=== PATIENT | female | born 1930 | race Caucasian/White ===

== ENCOUNTER 2017-10-12 01:56 | Inpatient (IN) ==
--- NOTE | 2017-10-12 02:30 | Emergency Department Note ---
Disposition Clinical Impression: Fracture of humeral head, right, closed Qualifiers: Encounter type: initial encounter Qualified Code(s): S42.291A - Other displaced fracture of upper end of right humerus, initial encounter for closed fracture Closed right femoral fracture Qualifiers: Encounter type: initial encounter Femur location: base of neck Fracture alignment: displaced Qualified Code(s): S72.041A - Displaced fracture of base of neck of right femur, initial encounter for closed fracture Fall Qualifiers: Encounter type: initial encounter Qualified Code(s): W19.XXXA - Unspecified fall, initial encounter Disposition: Admitted As Inpatient Condition: Undetermined Time of Disposition: 04:38 Fall HPI - General Chief Complaint: ED Fall Stated Complaint: fall Time Seen by Provider: 10/12/17 02:01 Source: patient, EMS Mode of arrival: private vehicle Limitations: no limitations Nursing Notes Reviewed: Yes Vital Signs Reviewed: Yes - History of Present Illness HPI Narrative: 87-year-old female with apparent history of degenerative disc disease who apparently may have taken more of her medication and she supposed to arrives after a fall. The patient states that she took her Vicodin which she does not normally take on a regular basis and the patient's daughter found her and was slightly altered and sleepy. The patient did not realize how sleepy the patient was in instructed the patient to go to the bathroom. Upon in relation to the bathroom she was found a few minutes later on the ground. The patient had no LOC but does not remember the event due to alteration in mentation likely associated with Vicodin use. The patient is complaining of right shoulder and right hip pain she denies any abdominal pain, chest pain, difficulty breathing. The patient is resting comfortably in bed at this time without any other obvious signs of trauma. She denies any other complaints. 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 From: standing Fall Witnessed: no Place Fall Occurred: home Loss of Consciousness: none Prolonged Down Time?: no Symptoms Prior to Fall: none Context: new medication Location of injury - extremities: Right: shoulder, hip Severity: mild Severity scale (1-10): 3 Quality: aching Associated symptoms (after fall): Reports: denies - Related Data Home Medications Medication Instructions Recorded Confirmed Folic Acid 0.4 mg PO DAILY 04/23/17 06/21/17 Gabapentin [Gralise] 300 mg PO BID 04/23/17 06/21/17 Levothyroxine [Synthroid] 50 mcg PO DAILY 04/23/17 06/21/17 Lisinopril [Zestril] 40 mg PO DAILY 04/23/17 06/21/17 Lovastatin 10 mg PO DAILY 04/23/17 06/21/17 Metoprolol [Lopressor] 50 mg PO BID 04/23/17 06/21/17 Oxybutynin Chloride [Ditropan Xl] 5 mg PO DAILY 04/23/17 06/21/17 Pioglitazone [Actos] 45 mg PO 0800 04/23/17 06/21/17 amLODIPine [Norvasc] 10 mg PO DAILY 04/23/17 06/21/17 hydrALAZINE [HydrALAZINE] 10 mg PO TID 04/23/17 06/21/17 Previous Rx's Medication Instructions Recorded HYDROcodone/Acet 7.5/325 mg [[place] 1 tab PO Q6H PRN #90 tablet 12/25/16 7.5-325 mg] Ranitidine HCl [Zantac] 150 mg PO BID #60 tablet 01/22/17 Docusate Sodium [Colace] 100 mg PO BID #60 capsule 05/20/17 Allergies Allergy/AdvReac Type Severity Reaction Status Date / Time No Known Allergies Allergy Verified 08/14/17 13:52 All systems ED: reviewed and negative except as stated. Constitutional: Denies: fever, chills, weakness Cardiovascular: Denies: chest pain Respiratory: Denies: dyspnea Gastrointestinal: Denies: abdominal pain Genitourinary: Denies: urgency, dysuria Musculoskeletal: Reports: arthralgia. Denies: back pain, neck pain, myalgia Integumentary: Denies: rash Neurological: Denies: headache, weakness, numbness, paresthesias, confusion Fall PMH - Past Medical History Medical history: Reports: arthritis, cancer, diabetes, GERD, hypertension, kidney stones, other Surgical history: Reports: cholecystectomy, orthopedic, other Psychiatric history: Reports: no psych history, schizophrenia - Social History Smoking Status: Never smoker Alcohol use: Reports: unknown Drug use: Reports: none Physical Exam - General Limitations: no limitations General appearance: alert, in no apparent distress - Head Head exam: atraumatic, normocephalic, normal inspection - Eye Eye exam: Present: normal appearance, PERRL, EOMI - ENT ENT exam: normal exam, normal oropharynx, mucous membranes moist - Neck Neck exam: Present: normal inspection, full ROM, trachea midline - Chest Chest inspection: Present: normal inspection, symmetric chest wall rise - Respiratory Respiratory exam: Present: normal lung sounds bilaterally - Cardiovascular Cardiovascular exam: Present: regular rate, normal rhythm, normal heart sounds - Abdominal Exam Abdominal exam: Present: soft, Non-Tender. Absent: tenderness, distention, guarding, rebound, rigidity - Extremities Exam Extremities exam: Present: full ROM, tenderness (RIght shoulder and right hip.) - Neurological Exam Neurological exam: Present: alert - Expanded Neurological Exam Patient oriented to: Present: person, place Speech: Present: fluid speech Cranial nerves: EOM function (II, III, IV, ): Normal, facial sensation (V): Normal, facial palsy (VII): Normal Cerebellar function: normal gait Motor strength - LUE: 4/5 Motor strength - RUE: 4/5 Motor strength - LLE: 4/5 Motor strength - RLE: 4/5 Sensory exam upper extremity: light touch: Normal Sensory exam lower extremity: light touch: Normal Coma Scale Eye Opening: Spontaneous Coma Scale Motor Response: Obeys Commands Coma Scale Verbal Response: Oriented Coma Scale Total: 15 Course Vital Signs Temperature 97.5 F L 10/12/17 01:57 Pulse Rate 73 10/12/17 01:57 Respiratory Rate 16 10/12/17 01:57 Blood Pressure 165/66 10/12/17 01:57 O2 Sat by Pulse Oximetry 99 10/12/17 01:57 Temperature 97.5 F L 10/12/17 01:57 Pulse Rate 73 10/12/17 01:57 Respiratory Rate 16 10/12/17 01:57 Blood Pressure 165/66 10/12/17 01:57 O2 Sat by Pulse Oximetry 99 10/12/17 01:57 Oxygen Delivery Oxygen Delivery Room Air Fall - MDM Narrative Medical decision making narrative: Here in the emergency department demonstrates a right humeral head fracture as well as a right subcapital femoral neck fracture. The patient had consulted Dr. Feliz. He will be consulted the patient and see the patient once admitted to the hospitalist service. The patient was accepted by Dr. Cortes for admission. - Lab Data Lab results reviewed: Yes I reviewed the patient's lab results. Result diagrams: 10/12/17 03:41 10/12/17 03:41 Lab Results 10/12/17 10/12/17 Range/Units 03:41 03:41 WBC 13.2 H (4.3-11.1) K/mcL RBC 3.01 L (3.82-4.97) M/mcL Hgb 9.8 L (11.5-15.4) g/dL Hct 31.2 L (35.3-44.9) % MCV 103.7 H (83.0-100.0) fL MCH 32.6 (28.0-33.3) pg MCHC 31.4 L (31.6-35.5) g/dL RDW 14.7 H (11.5-14.5) % Plt Count 192 (140-400) K/mcL MPV 10.7 (9.4-12.4) fL Immature Gran % 0.5 (0-4) % Seg Neutrophils % 77.6 % Lymphocytes % 13.9 % Monocytes % 7.5 % Eosinophils % 0.2 % Basophils % 0.3 % Neutrophils # 10.2 H (1.6-8.9) K/mcL Lymphocytes # 1.8 (0.6-4.6) K/mcL Monocytes # 1.0 (0.0-1.3) K/mcL Eosinophils # 0.0 (0.0-0.6) K/mcL Basophils # 0.0 (0.0-0.2) K/mcL Sodium 136 (136-145) mEq/L Potassium 5.2 H (3.5-4.5) mEq/L Chloride 103 (98-109) mEq/L Carbon Dioxide 24 (19-29) mEq/L BUN 36 H (7-20) mg/dL Creatinine 2.26 H (0.57-1.11) mg/dL Est GFR ( Amer) 25 L (> 60) Est GFR (Non-Af Amer) 21 L (> 60) BUN/Creatinine Ratio 16 (6-26) Glucose 128 H (70-99) mg/dL Calculated Osmolality 292 (280-300) Calcium 8.6 (8.6-10.8) mg/dL - Radiology Data Radiology results reviewed: Yes I reviewed the patient's radiology results. Attestation Statement - Attestation Attestation: I examined this patient and my medical decision-making was reviewed with the Resident Physician. I agree with the documented findings, disposition and treatment plan as described except to the extent set forth below. Patient to ED after a fall at home. Daughter states she got up to go to the bathroom when she found her half playing on her bed. States she heard a fall. Patient opening a right shoulder and hip pain. On examination she is holding her arm internally rotated. Does not allow log rolling of the hip. Tenderness over the greater trochanter. Abdomen soft lungs clear. Plan. Patient with a humeral neck fracture and left subcapital hip fracture. Discussed with orthopedics . Admitted to medicine.
[2017-10-12 03:46] LABS: Basophils % 0.3 %; Eosinophils % 0.2 %; Hematocrit 31.2 % (35.3-44.9); Hemoglobin 9.8 g/dL (11.5-15.4); Immature Granulocytes % 0.5 % (0-4); Lymphocytes # 1.8 K/mcL (0.6-4.6); Lymphocytes % 13.9 %; Mean Corpuscular HGB Conc 31.4 g/dL (31.6-35.5); Mean Corpuscular Hemoglobin 32.6 pg (28.0-33.3); Mean Corpuscular Volume 103.7 fL (83.0-100.0); Mean Platelet Volume 10.7 fL (9.4-12.4); Monocytes % 7.5 %; Neutrophils # 10.2 K/mcL (1.6-8.9); Platelet Count 192 K/mcL (140-400); Red Blood Count 3.01 M/mcL (3.82-4.97); Red Cell Distribution Width 14.7 % (11.5-14.5); Segmented Neutrophils % 77.6 %
[2017-10-12 04:00] LABS: Calcium 8.6 mg/dL (8.6-10.8)
[2017-10-12 04:01] LABS: Potassium 5.2 mEq/L (3.5-4.5)
[2017-10-12] MEDS ORDERED: Naloxone 0.4 MG/ML INJ IVP PRN ×2 (09:14→19:37)
[2017-10-12] MEDS ORDERED: *HR* Morphine 2 MG/ML SYRINGE IVP PRN (09:14)
[2017-10-12] MEDS ORDERED: Ondansetron 4 MG/2 ML VIAL IVP PRN ×2 (09:14→19:37)
[2017-10-12] MEDS ORDERED: *HR* HYDROcodone/Acet 5/325 mg TABLET PO PRN (09:14)
[2017-10-12] MEDS ORDERED: Acetaminophen 325 MG TABLET PO PRN ×2 (09:14→19:37)
[2017-10-12] MEDS ORDERED: D5% in Water 1,000 ML IVC PRN ×3 (09:20→23:53)
[2017-10-12] MEDS ORDERED: Dextrose Gel 15 GM PO PRN ×6 (09:20→23:53)
[2017-10-12] MEDS ORDERED: *HR* Dextrose 50 % in Water (Syg) 50 ML SYRINGE IVP PRN ×3 (09:20→23:53)
--- NOTE | 2017-10-12 09:30 | Internal Med History&Physical ---
Date of Encounter: 10/12/17 Time of Encounter: 09:28 Assessment and Plan (1) Fall Current visit: Yes Status: Acute Likely secondary to use of narcotics. Continue supportive care and fall precautions. Check urine reflex microscopy and culture as daughter is concerned about UTI as patient is noted to be more confused at home. Qualifiers: Encounter type: initial encounter Qualified Code(s): W19.XXXA - Unspecified fall, initial encounter (2) Closed right femoral fracture Current visit: Yes Status: Acute Secondary to fall. Right hip x-ray shows subcapital hip fracture. Orthopedic surgery has been consulted, plan for hip surgery. Continue bedrest, IV hydration, and control with cautious use of when necessary IV morphine and oral Percocet. Keep nothing by mouth for now. Check EKG. Patient has intermediate perioperative risk for cardiopulmonary complications, for intermediate risk orthopedic surgery, at this time; Physical and occupational therapy evaluation after surgery. Qualifiers: Encounter type: initial encounter Femur location: base of neck Fracture alignment: displaced Qualified Code(s): S72.041A - Displaced fracture of base of neck of right femur, initial encounter for closed fracture (3) Fx humeral neck Current visit: Yes Status: Acute Right humerus x-ray shows displaced humeral neck fracture. Continue supportive care, right arm sling. Follow-up orthopedics consult. Pain control as above. Qualifiers: Encounter type: initial encounter Fracture type: closed Laterality: right Qualified Code(s): S42.211A - Unspecified displaced fracture of surgical neck of right humerus, initial encounter for closed fracture (4) Essential hypertension Current visit: Yes Status: Chronic Blood pressure noted to be well controlled. Resume home medications. (5) Hypothyroidism Current visit: Yes Status: Chronic Continue levothyroxine. Qualifiers: Hypothyroidism type: unspecified Qualified Code(s): E03.9 - Hypothyroidism , unspecified (6) Multiple myeloma Current visit: Yes Status: Chronic Follows with oncology as outpatient. Has a variant of multiple myeloma, currently not on chemotherapy. 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 Serum creatinine noted to be around baseline, 2.2 today. Continue to monitor closely and avoid nephrotoxic agents. (8) Anemia Current visit: Yes Status: Chronic Noted to have chronic anemia, likely related to myeloproliferative disorder. Monitor hemoglobin closely. Qualifiers: Anemia type: unspecified type Qualified Code(s): D64.9 - Anemia, unspecified (9) Type 2 diabetes mellitus Current visit: Yes Status: Chronic Accu-Chek blood glucose monitoring with sliding scale insulin. Blood sugars noted to be well controlled. Diabetic diet when tolerated. 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 Beaulieu is a 87 year old female with history of hypertension, diabetes, chronic kidney disease presents with complaints of right shoulder and right hip pain after sustaining fall at home. Patient is noted to be on narcotic pain medications at home, which she does not often take due to resulting confusion and drowsiness. She took Percocet last night after which her daughter noticed her on the bathroom floor. Patient reports no chest pain, palpitations, dyspnea or syncope. She did not hit her head, however reports severe pain in her right arm and right hip and cannot move her right shoulder and hip without pain. She has no previous history of fractures. Patient is also noted to be mildly confused at this time and history is obtained from her daughter at bedside. Past Med Surg Social Fam HX - Past Medical History Medical history: arthritis, cancer (Multiple myeloma, not on treatment), diabetes, GERD, hypertension, kidney stones, renal disease, other Psychiatric history: no psych history, schizophrenia - Past Surgical History Surgical History: cholecystectomy, orthopedic, other (Right great toe amputation ), other (Lumbar spinal fusion surgery) - Social History Smoking Status: Never smoker Smokeless Tobacco Status: No Alcohol use: unknown Drug use: none Occupational status: retired Current living situation: Home, With Family Activity Level: Uses cane/walker Recent Out of Country Travel Within the Last 8 Weeks: No Exposure or Possible Exposure to Illness During Travel: No - Family History Brother Name: ivy loomis Living Status: Still Living Hx Family Cancer: Yes (colon) Internal Medicine - H&P: Meds Ranitidine HCl [Zantac] 150 mg PO BID #60 tablet 01/22/17 [Rx] Folic Acid 0.4 mg PO DAILY 04/23/17 [History] Lisinopril [Zestril] 40 mg PO DAILY 04/23/17 [History] Lovastatin 10 mg PO DAILY 04/23/17 [History] Metoprolol [Lopressor] 50 mg PO BID 04/23/17 [History] Pioglitazone [Actos] 45 mg PO 0800 04/23/17 [History] Amlodipine Besylate 10 mg PO DAILY 10/13/17 [History] Ascorbate Calcium [Vitamin C] 500 mg PO DAILY 10/13/17 [History] Aspirin [Lo-Dose Aspirin EC] 81 mg PO DAILY 10/13/17 [History] Ca/D3/Mag#11/Zinc/Identification And Records Commander/Bill/Bor [Caltrate 600+D Plus Tablet] 1 tab PO DAILY 10/13 [History] Gabapentin [Neurontin] 600 mg PO BID 10/13/17 [History] HYDROcodone/Acet 7.5/325 mg [[place] 7.5-325 mg] 1 tab PO Q8H PRN 10/13/17 [ History] Insulin Glargine,Hum.rec.anlog [Basaglar Kwikpen U-100] 12 unit SQ DAILY [History] Levothyroxine [Synthroid] 75 mcg PO 0630 10/13/17 [History] Multivitamin [Multivitamins] 1 cap PO DAILY 10/13/17 [History] Omeprazole [PriLOSEC] 40 mg PO DAILY 10/13/17 [History] Oxybutynin [Ditropan] 5 mg PO DAILY 10/13/17 [History] hydrALAZINE [HydrALAZINE] 10 mg PO TID 10/13/17 [History] 3 Allergy/AdvReac Type Severity Reaction Status Date / Time No Known Allergies Allergy Verified 10/13/17 16:04 All Systems PM: A 10-system review of systems was performed and is negative for pertinent findings except as documented above in the HPI. - Constitutional Constitutional: no chills, no fever(s), no night sweats - EENT Eyes: no change in vision, no discharge, no pain, no photophobia Ears: no ear discharge, no ear pain, no tinnitus Nose, mouth and throat: no dysphagia, no nasal discharge, no neck pain, no sore throat - Cardiovascular Cardiovascular ROS IM: no chest pain, no diaphoresis, no dyspnea, no lightheadedness, no palpitations, no syncope - Respiratory Respiratory: no cough, no dyspnea, no wheezing, no excessive phlegm production - Gastrointestinal Gastrointestinal: no abdominal pain, no diarrhea, no hematemesis, no hematochezia, no melena, no nausea, no vomiting - Genitourinary Genitourinary: no change in urinary stream, no dysuria, no flank pain, no hematuria - Musculoskeletal Musculoskeletal ROS IM: limited range of motion - Integumentary Integumentary IM: no rash, no unusual bruising - Neurological Neurological ROS: no confusion, no convulsions, no focal weakness, no numbness, no tingling, no tremor(s) - Hematologic/Lymphatic Hematologic/Lymphatic: no easy bruising - Constitutional Vitals: Temp Pulse Resp BP Pulse Ox 98.5 F 72 15 131/71 94 10/12/17 06:28 10/12/17 06:28 10/12/17 06:28 10/12/17 06:28 10/12/17 06:28 General appearance: Present: A&O X 2, mild distress (Intermittent confusion), answers questions appropriately - Respiratory Respiratory exam: Present: CTAB. Absent: accessory muscle use, rales, rhonchi, wheezes - Cardiovascular Cardiovascular exam: Present: RRR, +S1, +S2. Absent: diastolic murmur, gallop, rubs, systolic murmur - GI/Abdominal GI/Abdominal exam: Present: normal bowel sounds, soft, no peritoneal signs. Absent: distended, tenderness - Extremities Exam Extremities exam: Present: full ROM (Restricted and right shoulder and elbow, right hip), warm, radial pulses palpable and symmetrical. Absent: calf tenderness, cyanotic, pedal edema Additional comments: Right lower extremity noted to be shortened, external rotation - Neurological Exam Neurological exam: Present: CN II-XII intact, oriented X3 (Intermittently confused), no focal deficits. Absent: pronater drift, facial droop, speech deficit - Skin Skin exam: Present: dry, intact Internal Med - H&P Results - Labs CBC & Chem 7: 10/13/17 04:50 10/13/17 04:50
[2017-10-12] MEDS: 0.9 % Sodium Chloride 1,000 ML IVC SCH ×3 (10:09→21:20)
[2017-10-12 10:33] LABS: Hemoglobin A1C 5.5 %
[2017-10-12] MEDS ORDERED: Insulin LISPRO 300 UNITS/3 ML VIAL SQ SCH (12:00)
[2017-10-12 12:27] LABS: Bilirubin,Urine Negative (Negative); Blood,Urine Trace (Negative); Clarity,Urine Turbid (Clear); Color,Urine Yellow (Yellow); Glucose,Urine (UA) Normal (Normal); Ketones,Urine Trace mg/dL (Negative); Leukocyte Esterase,Urine Large (Negative); Nitrite,Urine Negative (Negative); Protein,Urine 30 mg/dL (Neg-Trace); Specific Gravity,Urine 1.015 (1.010-1.025); Urobilinogen,Urine Normal (Normal)
[2017-10-12 12:30] LABS: Bacteria,Urine Many per hpf (None-Few); Hyaline Casts,Urine None Seen per lpf (None-Few); Squamous Epithelial Cell,Urine Many per lpf (None-Few); WBC,Urine TNTC per hpf (0-3)
--- NOTE | 2017-10-12 14:19 | Orthopedic Consult Note ---
Date of Encounter: 10/12/17 Time of Encounter: 14:18 History of Present Illness Chief complaint: Right hip and right shoulder pain HPI: Ms. Beaulieu is a 87 year old [id number] female who sustained a fall in her home the night before. She apparently had gotten up to use the bathroom and was somewhat still sleepy and possibly had taken some additional pain medications with resultant sleepiness. She was barely found in the bathroom unable to ambulate. She was brought to [facility] x-rays taken revealed evidence of a right femoral neck and a right humeral neck fracture. She is admitted for further evaluation and management. For complete history and physical data please refer to the formal medical chart. Examination reveals tenderness and edema about the right shoulder. Right lower extremity is held in a minimally shortened position. Neurosensory exam is grossly intact. X-rays of the right hip reveals a displaced right femoral neck fracture. X-rays of the right shoulder reveals a displaced/offset fracture of the humeral neck. There is a bone to bone contact between the fragments. Impression #1 displaced right femoral neck fracture #2 displaced right humeral neck fracture Recommendations: Long discussion with the patient and her daughter about the treatment options available both the hip and the proximal humerus. Decision was made to go ahead and treat the femoral neck fracture by placing a cemented hip prosthesis. This would allow for immediate full weightbearing ambulation. We discussed potential risks and complications of the surgery including but not limited to bleeding, infection, blood clots, nerve injury, stiffness, rotational and leg length deformities as well as possible dislocation. Discussed treating the humeral fracture more conservatively at this time with the understanding that if it is problematic that surgery can be performed at a later date. Informed consent has been signed proceed with the surgical procedure on her right hip. Proceed today when the implants and OR time is available. Thank you very much for allowing me seen care for Mrs. Jimenez. Sincerely, Parish Feliz,DO Past Med Surg Social Fam HX - Past Medical History Medical history: arthritis, cancer, diabetes, GERD, hypertension, kidney stones , other Psychiatric history: no psych history, schizophrenia - Past Surgical History Surgical History: cholecystectomy, orthopedic, other - Social History Smoking Status: Never smoker Smokeless Tobacco Status: No Alcohol use: unknown Drug use: none - Family History Brother Name: ivy loomis Living Status: Still Living Hx Family Cancer: Yes (colon) Medications and Allergies HYDROcodone/Acet 7.5/325 mg [[place] 7.5-325 mg] 1 tab PO Q6H PRN #90 tablet 12/25 [Rx] Ranitidine HCl [Zantac] 150 mg PO BID #60 tablet 01/22/17 [Rx] Folic Acid 0.4 mg PO DAILY 04/23/17 [History] Gabapentin [Gralise] 300 mg PO BID 04/23/17 [History] Levothyroxine [Synthroid] 50 mcg PO DAILY 04/23/17 [History] Lisinopril [Zestril] 40 mg PO DAILY 04/23/17 [History] Lovastatin 10 mg PO DAILY 04/23/17 [History] Metoprolol [Lopressor] 50 mg PO BID 04/23/17 [History] Oxybutynin Chloride [Ditropan Xl] 5 mg PO DAILY 04/23/17 [History] Pioglitazone [Actos] 45 mg PO 0800 04/23/17 [History] amLODIPine [Norvasc] 10 mg PO DAILY 04/23/17 [History] hydrALAZINE [HydrALAZINE] 10 mg PO TID 04/23/17 [History] Docusate Sodium [Colace] 100 mg PO BID #60 capsule 05/20/17 [Rx] 3 Allergy/AdvReac Type Severity Reaction Status Date / Time No Known Allergies Allergy Verified 08/14/17 13:52 All Systems Reviewed: A 10-system review of systems was performed and is negative for pertinent findings except as documented above in the HPI. Physical Exam - Constitutional Vitals: Temp Pulse Resp BP Pulse Ox 99.9 F H 80 16 132/62 92 10/12/17 10:56 10/12/17 10:56 10/12/17 10:56 10/12/17 10:56 10/12/17 10:56 Results - Labs Result Diagrams: 10/12/17 03:41 10/12/17 03:41 Labs: Abnormal lab results WBC 13.2 K/mcL (4.3-11.1) H 10/12/17 03:41 RBC 3.01 M/mcL (3.82-4.97) L 10/12/17 03:41 Hgb 9.8 g/dL (11.5-15.4) L 10/12/17 03:41 Hct 31.2 % (35.3-44.9) L 10/12/17 03:41 MCV 103.7 fL (83.0-100.0) H 10/12/17 03:41 MCHC 31.4 g/dL (31.6-35.5) L 10/12/17 03:41 RDW 14.7 % (11.5-14.5) H 10/12/17 03:41 Neutrophils # 10.2 K/mcL (1.6-8.9) H 10/12/17 03:41 Potassium 5.2 mEq/L (3.5-4.5) H 10/12/17 03:41 BUN 36 mg/dL (7-20) H 10/12/17 03:41 Creatinine 2.26 mg/dL (0.57-1.11) H 10/12/17 03:41 Est GFR ( Amer) 25 (> 60) L 10/12/17 03:41 Est GFR (Non-Af Amer) 21 (> 60) L 10/12/17 03:41 Glucose 128 mg/dL (70-99) H 10/12/17 03:41 Urine Clarity Turbid (Clear) A 10/12/17 12:13 Urine Protein 30 mg/dL (Neg-Trace) H 10/12/17 12:13 Urine Ketones Trace mg/dL (Negative) H 10/12/17 12:13 Urine Blood Trace (Negative) H 10/12/17 12:13 Ur Leukocyte Esterase Large (Negative) H 10/12/17 12:13 Urine Microscopic RBC 5-15 per hpf (0-3) H 10/12/17 12:13 Urine Microscopic WBC TNTC per hpf (0-3) H 10/12/17 12:13 Ur Squamous Epith Cells Many per lpf (None-Few) H 10/12/17 12:13 Urine Bacteria Many per hpf (None-Few) H 10/12/17 12:13 All other labs normal. - Diagnostic results Shoulder x-ray: image reviewed Hip AP/Lateral x-ray: image reviewed Consult Discharge Plan - Plan Referrals: Margie Champion, DO [Primary Care Provider] -
[2017-10-12] MEDS ORDERED: hydrALAZINE 10 MG TABLET PO SCH (15:00)
[2017-10-12] MEDS ORDERED: Lidocaine -MPF 2% 2 ML VIAL ONE (15:01)
[2017-10-12] MEDS ORDERED: *HR* Propofol 200 MG/20 ML VIAL IVP ONE (15:01)
[2017-10-12] MEDS ORDERED: Dexamethasone 4 MG/ML VIAL ONE ×2 (15:01→16:59)
[2017-10-12] MEDS ORDERED: *HR* Phenylephrine 10 MG/ML VIAL ONE (15:02)
[2017-10-12] MEDS ORDERED: *HR* FentaNYL (PF) 100 MCG/2 ML VIAL ONE (15:13)
--- NOTE | 2017-10-12 15:28 | Anesthesia Evaluation PreOp ---
Date of Encounter: 10/12/17 Time of Encounter: 16:00 - Past History Planned Operation: Right whit-hip Cardiac History: HTN Pulmonary History: Denies Any Significant HX BELT TENDER History: Denies Any Significant HX Other Medical History: Renal (ckd with creatinine 2.26 this admission and potassium 5.2 without reported hemolysis, renal stones), Diabetes Type II, Thyroid (hypothryoidism), GERD, Other (multiple myeloma, poss uti, also with broken) Anesthesia History: No Prior Anesthetic Complications, Past Anesthesia ( cholecystectomy, orthopaedic) Alcohol Use: unknown Drug use: none Medications and Allergies HYDROcodone/Acet 7.5/325 mg [Roseboom 7.5-325 mg] 1 tab PO Q6H PRN #90 tablet 12/25 [Rx] Ranitidine HCl [Zantac] 150 mg PO BID #60 tablet 01/22/17 [Rx] Folic Acid 0.4 mg PO DAILY 04/23/17 [History] Gabapentin [Gralise] 300 mg PO BID 04/23/17 [History] Levothyroxine [Synthroid] 50 mcg PO DAILY 04/23/17 [History] Lisinopril [Zestril] 40 mg PO DAILY 04/23/17 [History] Lovastatin 10 mg PO DAILY 04/23/17 [History] Metoprolol [Lopressor] 50 mg PO BID 04/23/17 [History] Oxybutynin Chloride [Ditropan Xl] 5 mg PO DAILY 04/23/17 [History] Pioglitazone [Actos] 45 mg PO 0800 04/23/17 [History] amLODIPine [Norvasc] 10 mg PO DAILY 04/23/17 [History] hydrALAZINE [HydrALAZINE] 10 mg PO TID 04/23/17 [History] Docusate Sodium [Colace] 100 mg PO BID #60 capsule 05/20/17 [Rx] 3 Allergy/AdvReac Type Severity Reaction Status Date / Time No Known Allergies Allergy Verified 08/14/17 13:52 - Meds/Allergy Pre-op Review Medications Reviewed: Yes Allergies Reviewed: Yes Beta Blockers on Current Med List: Yes If Beta Blockers taken, Date/Time (Last Dose taken): 10-11-17 metoprolol 16:00 Anesthesia Results - Labs 10/12/17 03:41 10/12/17 03:41 - Imaging EKG: report reviewed, image reviewed (SR) Additional studies: Holter: Impression: 1. Baseline rhythm normal sinus. 2. Occasional PVCs. 3. Occasional PACS. 4. Several short runs PAT. 5. No symptoms noted. TTE: Rhythm strip demonstrates probably 2nd degree AVB Mobitz type I (Wenckebach) LVEF 65% mild MR mild pulm htn Anesthesia Exam Last Vital Signs Temp 99.9 F H 10/12/17 10:56 Pulse 80 10/12/17 10:56 Resp 16 10/12/17 10:56 BP 132/62 10/12/17 10:56 Pulse Ox 92 10/12/17 10:56 Weight: 60 kg - HEENT Pupil (Motor): Pupils equal, EOMI Mallampati: IV Teeth: Poor dentition Oral Opening: Greater than 3 - BELT TENDER LOC: Oriented - Cardiac Rhythm: Regular Murmur: Systolic (low grade CHANCE) - Pulmonary Breath Sounds: bilateral Clear Respiratory Effort: Symmetrical Anesthesia Assess/Plan ASA Score: 3 Modified Tegan Scale for Level of Consciousness: Cooperative, oriented, and tranquil Anesthetic Plan: General Monitoring Plan: Standard Monitors Recovery Plan: PACU
[2017-10-12] MEDS ORDERED: *HR* HYDROmorphone (PF) 1 MG/ML SYRINGE IVP PRN (16:29)
[2017-10-12] MEDS ORDERED: Ondansetron 4 MG/2 ML VIAL ONE ×2 (16:59→18:42)
[2017-10-12] MEDS ORDERED: cefTRIAXone 1,000 MG in Water for inj. (sterile) 10 ML IVP SCH (17:00)
[2017-10-12] MEDS ORDERED: *HR* HYDROmorphone 2 MG/ML SYRINGE ONE (17:24)
[2017-10-12] MEDS ORDERED: ceFAZolin 2,000 MG in Water for inj. (sterile) 20 ML IVP ONE (17:31)
--- NOTE | 2017-10-12 19:31 | Anesthesia Evaluation Post Op ---
Date of Encounter: 10/12/17 Time of Encounter: 19:30 - Vital Signs Vital Signs: Last Vital Signs Temp 98.5 F 10/12/17 19:00 Pulse 74 10/12/17 19:20 Resp 8 10/12/17 19:20 BP 135/51 10/12/17 19:20 Pulse Ox 95 10/12/17 19:20 - Lungs Lungs: Clear Ascult./Percussion - Airway Airway: Non-obstructed - Cardiovascular Regular Rate - Mental Status Mental Status: Alert & Oriented, Answers Appropriately - Pain Pain Scale: 2 - Nausea Vomiting Nausea Vomiting: Not Present - Hydration Hydration: NPO, Nichols catheter - Discharge PostOp Status: Transfer Patient to floor
--- NOTE | 2017-10-12 19:32 | Operative Note ---
Date of procedure: 10/12/17 Pre-op diagnosis: Right femoral neck fracture Post-op diagnosis: same Procedure: hemiarthroplsty right hip Implants: cemented Daniel size 13 LDFX stem , 10 mm distal centralizer, +4 mm adapter and a 47 mm unipolar endoprosthesis Complications: none Surgeon: Parish Feliz Estimated blood loss (cc): 200 Specimen: right femoral headd Condition: stable Disposition: PACU Procedure in Detail: grross findings revealed a displaced right femoral neck fracture in this 87- year-old woman. Intraoperative findings revealed a marked amountof edema in the soft tissues and within the bursa. a somewhat comminuted neck fracture was nooted. Bone quality was good. A cementedhemiarthroplasty was performed without compliccating features with a stable hip obtaiined after placementof the implants. procedure : patient was taken the opperating room and administered a general anesthesi. Patient was not transferred to the operating table and placed in laterally, position with right side up. Patien was stabilized witth a lateral hip sstabilizig system. All pressure points wre well padded. Right hip was now prepped and draped in nomal standard fashion for surgery. a right lateral hip incision was created and dissection was carried through thee adipose tissue down to the fascia which is cleeared split length the incision followed by placeement of the Charnley retracttor. abductor mechanism was then taken down anteriorly off the troochanter and tagged with #2 FiberWire suture protraction later repair. Capsulottomy was then made in thee superior capsulottomy wass madde up to tthe level of the acetabulum. Neck was then osteotomized. Head was removed from the acetabullum and sized. Acetabulum was cleanedd of cllot and debris and thhen ssized formally up to a size 47. Acetabulum wa now packed with dry spongge and attention was returned to thhe femur.T-handled reamer was passsed down the femoral jose followd by opening up the trochanter with the box osteotome. The canal was then sequenntially rasped up to including a size 13. medial calcar was then reamedd. Triialing was performed and appeared probably the fat a 0 to +4 was going be most appropriate.all trial components were now removed.cement restrictor was placd disally. Canal was irriigated with pulsatile lavage and then dried witha obination of suctio and sponges. at this time the cement was mixed. cement was thhen instille distally Cement was pressurized. The assembledstem and centralizer then passed down the cement into the canal and seated onto the medial calcar. Was placed in a neutral position. Excess cement was trimmed away. Cment was allowed to flly harden. Final cement cleanupp was performed. Final trialing was perrformed and a +4 neck length was selected. The +4 neck andhead were then assembled and impacted onto the stem with 3 sharp blows of the mallet. hip was reduced and a stable reduction was obtained. capsulotomy was closed with #2 Fiberwire. Abductorss were repaired with he previously placed #2 FiberWire and reinforced with #2 Quill. fasciawas closed with multile number 2 FiberWire and #2 Quill. deep subtendinous tissue was closed with #1 Vicryl. Medius subtendinous tissue was closed with 2-0 undyed Vicryl. Skin was approximated with 30 Montrell affix. Skin glue was applied. This is followed by Tpifoam. nt was placed into a abduction illow. Patient was no transer from the operating table hospital bedpatient was awakened from anesthesia and transferred to the postanesthesia care unit.
[2017-10-12] MEDS ORDERED: ceFAZolin 2,000 MG in Water for inj. (sterile) 20 ML IVP SCH (20:00)
[2017-10-12] MEDS: CeFAZolin Premix DUPLEX 2,000 MG/50 ML BAG IVPB SCH (20:57)
[2017-10-12] MEDS: hydrALAZINE 10 MG TABLET PO SCH (20:57)
[2017-10-12] MEDS: *HR* HYDROcodone/Acet 5/325 mg TABLET PO PRN (22:38)
[2017-10-12] MEDS: *HR* Morphine 2 MG/ML SYRINGE IVP PRN (23:45)
[2017-10-13] MEDS ORDERED: Insulin LISPRO 300 UNITS/3 ML VIAL SQ SCH
[2017-10-13] MEDS: *HR* HYDROcodone/Acet 5/325 mg TABLET PO PRN ×3 (04:31→19:51)
[2017-10-13] MEDS: *HR* Enoxaparin 30 MG/0.3 ML SYRINGE SQ SCH (04:31)
[2017-10-13] MEDS: CeFAZolin Premix DUPLEX 2,000 MG/50 ML BAG IVPB SCH (04:32)
[2017-10-13 05:11] LABS: Basophils % 0.2 %; Hematocrit 26.3 % (35.3-44.9); Hemoglobin 8.3 g/dL (11.5-15.4); Immature Granulocytes % 0.4 % (0-4); Lymphocytes # 1.5 K/mcL (0.6-4.6); Lymphocytes % 14.5 %; Mean Corpuscular HGB Conc 31.6 g/dL (31.6-35.5); Mean Corpuscular Volume 101.5 fL (83.0-100.0); Mean Platelet Volume 11.2 fL (9.4-12.4); Monocytes # 0.9 K/mcL (0.0-1.3); Monocytes % 8.8 %; Platelet Count 182 K/mcL (140-400); Red Blood Count 2.59 M/mcL (3.82-4.97); Red Cell Distribution Width 14.9 % (11.5-14.5); Segmented Neutrophils % 76.1 %
[2017-10-13 05:27] LABS: Calcium 8.2 mg/dL (8.6-10.8); Magnesium 2.3 mg/dL (1.6-2.6); Potassium 4.8 mEq/L (3.5-4.5)
[2017-10-13] MEDS ORDERED: *HR* Enoxaparin 30 MG/0.3 ML SYRINGE SQ SCH (06:00)
[2017-10-13] MEDS: *HR* Morphine 2 MG/ML SYRINGE IVP PRN ×2 (07:32→23:10)
[2017-10-13] MEDS: Folic Acid 1 MG TABLET PO SCH (08:52)
[2017-10-13] MEDS ORDERED: Folic Acid 1 MG TABLET PO SCH (09:00)
[2017-10-13] MEDS: Insulin LISPRO 300 UNITS/3 ML VIAL SQ SCH ×4 (09:00→21:42)
[2017-10-13] MEDS ORDERED: amLODIPine 5 MG TABLET PO SCH (09:00)
[2017-10-13] MEDS: amLODIPine 5 MG TABLET PO SCH (12:28)
[2017-10-13] MEDS: hydrALAZINE 10 MG TABLET PO SCH ×3 (12:28→21:43)
[2017-10-13] MEDS: 0.9 % Sodium Chloride 1,000 ML IVC SCH (15:47)
--- NOTE | 2017-10-13 15:47 | Orthopedics Progress Note ---
Date of Encounter: 10/13/17 Time of Encounter: 15:43 Subjective Principal diagnosis: Right hip and right proximal humerus fractures Interval history: Patient is postoperative day #1 after having had a hemiarthroplasty for right hip. She is doing quite well. Pain is well managed. Limited activities and ambulation thus far. Vital signs are stable she is afebrile. Dressings on the hip are clean and dry. Neurovascular exam is normal. Hemoglobin is 8.3, currently asymptomatic. Platelet count normal. Urinalysis was consistent with a urinary tract infection though a culture was not performed initially, a culture is currently pending. Impression: POD #1 hemiarthroplasty right hip 2. Right proximal humerus fracture Recommendation: Start more aggressive therapy as patient is able to tolerate. She can be weightbearing as tolerated on the right lower extremity with hip precautions being followed. She may be a candidate to try a right platform walker or a uni-walker depending upon her abilities. Limited use of the right shoulder distal. Recheck labs in a.m. Orthopedic status stable. Objective Vital signs: Vital Signs Temp Pulse Resp BP Pulse Ox 10/13/17 10:45 97.6 F 83 16 117/56 95 10/13/17 08:51 75 114/65 10/13/17 06:49 97.9 F 71 16 115/57 94 10/13/17 04:34 98.8 F 73 15 147/64 96 10/12/17 22:15 97.5 F L 73 12 149/65 96 10/12/17 21:17 95 10/12/17 20:45 97.5 F L 80 12 146/67 95 10/12/17 20:15 97.4 F L 79 12 135/66 94 10/12/17 20:00 97.4 F L 76 11 134/68 93 10/12/17 19:45 97.4 F L 75 12 127/65 95 10/12/17 19:30 98.4 F 72 8 132/57 95 10/12/17 19:20 74 8 135/51 95 10/12/17 19:10 74 8 138/49 96 10/12/17 19:00 98.5 F 71 8 155/61 98 Intake and Output 10/12/17 10/13/17 10/13/17 23:59 07:59 15:59 Intake Total 1080 / 1080 50 / 50 320 / 320 Output Total 250 / 250 350 / 350 Balance 830 / 830 50 / 50 -30 / -30 Intake: IV Fluids 1080 / 1080 50 / 50 0.9 % Sodium Chloride 1,000 ML 1000 / 1000 @ 60 mls/hr IVC .[id number] [facility] Rx #:[id number] Ancef 2,000 MG In Water for inj / 20 . (sterile) 20 ML @ 200 mls/hr IVP ONCE ONE Rx#:[id number] Rocephin 1,000 MG In Water for inj. (sterile) 10 ML @ 300 mls/ hr IVP Q24H [facility] Rx#:[id number] Ancef Premix DUPLEX 2,000 mg In 50 / 50 50 / 50 50 ml @ 100 mls/hr IVPB Q8H [facility] Rx#:[id number] Oral 50 / 50 270 / 270 Output: Urine 350 / 350 Estimated Blood Loss 200 / 200 Urine Amount (Catheter) 50 / 50 Other: Percent of Meal Consumed 40% # Voids 1 Weight 60 kg Blood Glucose* 159 225 106 Patient Weight 10/13/17 23:59 Weight 60 kg - Labs CBC & BMP: 10/13/17 04:50 10/13/17 04:50 Labs: Abnormal lab results RBC 2.59 M/mcL (3.82-4.97) L 10/13/17 04:50 Hgb 8.3 g/dL (11.5-15.4) L D 10/13/17 04:50 Hct 26.3 % (35.3-44.9) L 10/13/17 04:50 MCV 101.5 fL (83.0-100.0) H 10/13/17 04:50 RDW 14.9 % (11.5-14.5) H 10/13/17 04:50 Sodium 133 mEq/L (136-145) L 10/13/17 04:50 Potassium 4.8 mEq/L (3.5-4.5) H 10/13/17 04:50 BUN 45 mg/dL (7-20) H 10/13/17 04:50 Creatinine 2.24 mg/dL (0.57-1.11) H 10/13/17 04:50 Est GFR ( Amer) 25 (> 60) L 10/13/17 04:50 Est GFR (Non-Af Amer) 21 (> 60) L 10/13/17 04:50 Glucose 227 mg/dL (70-99) H 10/13/17 04:50 POC Glucose 225 (58-89) H 10/13/17 06:57 Calcium 8.2 mg/dL (8.6-10.8) L 10/13/17 04:50 Urine Clarity Turbid (Clear) A 10/12/17 12:13 Urine Protein 30 mg/dL (Neg-Trace) H 10/12/17 12:13 Urine Ketones Trace mg/dL (Negative) H 10/12/17 12:13 Urine Blood Trace (Negative) H 10/12/17 12:13 Ur Leukocyte Esterase Large (Negative) H 10/12/17 12:13 Urine Microscopic RBC 5-15 per hpf (0-3) H 10/12/17 12:13 Urine Microscopic WBC TNTC per hpf (0-3) H 10/12/17 12:13 Ur Squamous Epith Cells Many per lpf (None-Few) H 10/12/17 12:13 Urine Bacteria Many per hpf (None-Few) H 10/12/17 12:13 - VTE Documentation of Mechanical Device: Venous foot pump, device Consult Discharge Plan - Plan Referrals: Margie Champion DO [Primary Care Provider] -
[2017-10-13] MEDS: cefTRIAXone 1,000 MG in Water for inj. (sterile) 10 ML IVP SCH (15:57)
[2017-10-13] MEDS ORDERED: 0.9 % Sodium Chloride 1,000 ML IVC SCH (18:45)
--- NOTE | 2017-10-13 19:45 | Electrocardiograph Report ---
[place] [id number] Test Date: 2017-10-12 Pat Name: Bev Beaulieu Department: 114 Room: [facility] Gender: F Scale Installer: : [id number] Requested By: Rebecca Proctor Order Number: [id number] Reading MD: Kev Kulkarni MD Measurements Intervals [place] Rate: 78 P: 7 OR: 145 QRS: -20 QRSD: 86 T: -1 QT: 377 QTc: 411 Interpretive Statements SINUS RHYTHM Poor R wave progression Electronically Signed On 10-13-2017 19:43:56 EST by Kev Kulkarni MD
[2017-10-14] MEDS ORDERED: Melatonin 3 MG TABLET PO ONE (01:08)
[2017-10-14] MEDS: *HR* HYDROcodone/Acet 5/325 mg TABLET PO PRN ×4 (01:39→23:51)
[2017-10-14] MEDS: *HR* Enoxaparin 30 MG/0.3 ML SYRINGE SQ SCH (05:57)
[2017-10-14] MEDS: Folic Acid 1 MG TABLET PO SCH (08:20)
[2017-10-14] MEDS: hydrALAZINE 10 MG TABLET PO SCH ×3 (08:20→20:45)
[2017-10-14] MEDS: amLODIPine 5 MG TABLET PO SCH (08:20)
[2017-10-14] MEDS: Insulin LISPRO 300 UNITS/3 ML VIAL SQ SCH ×4 (08:21→20:55)
[2017-10-14 15:15] LABS: Calcium 8.4 mg/dL (8.6-10.8); Magnesium 1.9 mg/dL (1.6-2.6); Potassium 4.7 mEq/L (3.5-4.5)
[2017-10-14 15:25] LABS: Basophils % 0.1 %; Hematocrit 25.2 % (35.3-44.9); Hemoglobin 8.2 g/dL (11.5-15.4); Immature Granulocytes % 0.5 % (0-4); Lymphocytes # 2.5 K/mcL (0.6-4.6); Lymphocytes % 16.5 %; Mean Corpuscular HGB Conc 32.5 g/dL (31.6-35.5); Mean Corpuscular Hemoglobin 32.5 pg (28.0-33.3); Mean Platelet Volume 11.8 fL (9.4-12.4); Monocytes # 1.9 K/mcL (0.0-1.3); Monocytes % 12.8 %; Neutrophils # 10.4 K/mcL (1.6-8.9); Platelet Count 183 K/mcL (140-400); Red Blood Count 2.52 M/mcL (3.82-4.97); Red Cell Distribution Width 14.8 % (11.5-14.5); Segmented Neutrophils % 70.1 %
--- NOTE | 2017-10-14 17:40 | Internal Med Progress Note ---
Date of Encounter: 10/13/17 Time of Encounter: 15:00 - Assessment and plan (1) Fall Current Visit: Yes Status: Acute Assessment and plan: PT/OT evaluation pending; patient and the daughter are interested in having patient discharged home with home health services, declined placement at a rehabilitation facility. Qualifiers: Encounter type: initial encounter Qualified Code(s): W19.XXXA - Unspecified fall, initial encounter (2) Closed right femoral fracture Current Visit: Yes Status: Acute Assessment and plan: Status post mechanical fall. Orthopedics on board. Status post right hemiarthroplasty, postoperative day 1. Doing well. Monitor hemoglobin. Physical and occupational therapy evaluation pending. Pain control with when necessary oral Percocet. Local wound care and wait pitting per orthopedics. Continue subcutaneous Lovenox. Qualifiers: Encounter type: initial encounter Femur location: base of neck Fracture alignment: displaced Qualified Code(s): S72.041A - Displaced fracture of base of neck of right femur, initial encounter for closed fracture (3) Fx humeral neck Current Visit: Yes Status: Acute Assessment and plan: Status post mechanical fall. Orthopedics on board. Conservative management with splinting at this time. Qualifiers: Encounter type: initial encounter Fracture type: closed Laterality: right Qualified Code(s): S42.211A - Unspecified displaced fracture of surgical neck of right humerus, initial encounter for closed fracture (4) Essential hypertension Current Visit: Yes Status: Chronic Assessment and plan: Blood pressure slightly low this morning, held morning antihypertensives. Continue IV hydration and monitor closely. (5) Hypothyroidism Current Visit: Yes Status: Chronic Assessment and plan: Continue levothyroxine. Qualifiers: Hypothyroidism type: unspecified Qualified Code(s): E03.9 - Hypothyroidism , unspecified (6) Multiple myeloma Current Visit: Yes Status: Chronic Qualifiers: Multiple myeloma remission status: in remission Qualified Code(s): C90.01 - Multiple myeloma in remission (7) CKD (chronic kidney disease), stage III Current Visit: Yes Status: Chronic Assessment and plan: Serum creatinine stable, around baseline. (8) Anemia Current Visit: Yes Status: Chronic Assessment and plan: Monitor hemoglobin for postoperative anemia. Qualifiers: Anemia type: unspecified type Qualified Code(s): D64.9 - Anemia, unspecified (9) Type 2 diabetes mellitus Current Visit: Yes Status: Chronic Assessment and plan: Blood sugars noted to be well controlled. Continue Accu-Chek blood glucose monitoring with sliding scale insulin. Diabetic diet. Qualifiers: Diabetes mellitus complication status: with kidney complications Diabetes mellitus complication detail: with chronic kidney disease Diabetes mellitus buttermaker insulin use: with buttermaker use Chronic kidney disease stage: stage 3 (moderate) Qualified Code(s): E11.22 - Type 2 diabetes mellitus with diabetic chronic kidney disease; N18.3 - Chronic kidney disease, stage 3 ( moderate); N18.3 - Chronic kidney disease, stage 3 (moderate); Z79.4 - buttermaker (current) use of insulin; Z79.4 - buttermaker (current) use of insulin; Z79.4 - retirement (current) use of insulin; Z79.4 - buttermaker (current) use of insulin - Subjective Interval history: Feels better; had right hip surgery yesterday; improving right hip pain; still has right arm pain; tolerates oral diet; no nausea, vomiting; able to get out of bed and ambulate with assistance; - Constitutional Vitals: Temp Pulse Resp BP Pulse Ox 98.8 F 82 16 149/62 94 10/14/17 15:57 10/14/17 15:57 10/14/17 15:57 10/14/17 15:57 10/14/17 15:57 General appearance: Present: A&O X 3, answers questions appropriately - Respiratory Respiratory exam: Present: CTAB. Absent: accessory muscle use, rales, rhonchi, wheezes - Cardiovascular Cardiovascular exam: Present: RRR, +S1, +S2. Absent: diastolic murmur, gallop, rubs, systolic murmur - GI/Abdominal GI/Abdominal exam: Present: normal bowel sounds, soft, no peritoneal signs. Absent: distended, tenderness - Extremities Exam Extremities exam: Present: warm, radial pulses palpable and symmetrical. Absent : calf tenderness, cyanotic, pedal edema Additional comments: right UE in sling; s/p right hip surgery Internal Medicine: Result - Labs CBC & Chem 7: 10/14/17 14:55 10/14/17 14:55 Labs: Short CBC 10/14/17 Range/Units 14:55 WBC 14.8 H (4.3-11.1) K/mcL Hgb 8.2 L (11.5-15.4) g/dL Hct 25.2 L (35.3-44.9) % Plt Count 183 (140-400) K/mcL Neutrophils # 10.4 H (1.6-8.9) K/mcL BMP 10/14/17 14:55 Sodium 131 L Potassium 4.7 H Chloride 104 Carbon Dioxide 18 L BUN 42 H Creatinine 1.73 H Glucose 235 H Calcium 8.4 L - VTE Documentation of Mechanical Device: Venous foot pump, device Consult Discharge Plan - Plan Referrals: Margie Champion DO [Primary Care Provider] -
[2017-10-14] MEDS: cefTRIAXone 1,000 MG in Water for inj. (sterile) 10 ML IVP SCH (17:50)
--- NOTE | 2017-10-14 18:41 | Orthopedics Progress Note ---
Date of Encounter: 10/14/17 Time of Encounter: 18:34 Subjective Principal diagnosis: Right hip and right proximal humerus fractures Interval history: Patient is postoperative day #1 after having had a hemiarthroplasty for right hip. She is doing quite well. Pain is well managed. Limited activities and ambulation thus far. Vital signs are stable she is afebrile. Dressings on the hip are clean and dry. Neurovascular exam is normal. Hemoglobin is 8.3, currently asymptomatic. Platelet count normal. Urinalysis was consistent with a urinary tract infection though a culture was not performed initially, a culture is currently pending. Impression: POD #1 hemiarthroplasty right hip 2. Right proximal humerus fracture Recommendation: Start more aggressive therapy as patient is able to tolerate. She can be weightbearing as tolerated on the right lower extremity with hip precautions being followed. She may be a candidate to try a right platform walker or a uni-walker depending upon her abilities. Limited use of the right shoulder distal. Recheck labs in a.m. Orthopedic status stable. 10/14/2017. Patient is postoperative day #2 hemiarthroplasty right hip. Pain is well managed at this time. Vital signs are stable. She is afebrile. Hip dressings are dry. Shoulder exam is stable. Hemoglobin is 8.2 and stable. Platelet count is normal. Urine culture is growing gram-negative kajal, exact identification and sensitivities pending. Impression: POD #2. Hemiarthroplasty right hip and right proximal humerus fracture Plan: Patient's family have decided against [facility] facility/ rehabilitation. Anticipate going home with home healthcare. Orthopedic status is stable for discharge at any time. Final culture results to determine appropriate antibiotics for urinary tract infection. Objective Vital signs: Vital Signs Temp Pulse Resp BP Pulse Ox 10/14/17 15:57 98.8 F 82 16 149/62 94 10/14/17 11:26 98.3 F 71 18 132/68 98 10/14/17 06:58 98.3 F 75 16 158/66 93 10/14/17 05:05 98.8 F 75 16 150/61 92 10/13/17 23:44 98.2 F 71 16 128/65 93 10/13/17 20:40 98.6 F 77 16 122/49 92 10/13/17 20:00 92 10/13/17 19:49 130/51 Intake and Output 10/14/17 10/14/17 10/14/17 07:59 15:59 23:59 Intake Total 700 / 700 300 / 300 2553 / 2553 Output Total 360 / 360 400 / 400 Balance 340 / 340 -100 / -100 2553 / 2553 Intake: IV Fluids 255 / 2553 0.9 % Sodium Chloride 1,000 ML 543 / 543 @ 60 mls/hr IVC .[id number] [facility] Rx #:[id number] Rocephin 1,000 MG In Water for inj. (sterile) 10 ML @ 300 mls/ hr IVP Q24H [facility] Rx#:[id number] Oral 700 / 700 300 / 300 Output: Urine 360 / 360 400 / 400 Other: Stool Size Smear Small Stool Color Brown # Voids 3 1 # Bowel Movements 1 1 Weight 66.361 kg Blood Glucose* 168 242 Patient Weight 10/14/17 23:59 Weight 66.361 kg - Labs CBC & BMP: 10/14/17 14:55 10/14/17 14:55 Labs: Abnormal lab results WBC 14.8 K/mcL (4.3-11.1) H 10/14/17 14:55 RBC 2.52 M/mcL (3.82-4.97) L 10/14/17 14:55 Hgb 8.2 g/dL (11.5-15.4) L 10/14/17 14:55 Hct 25.2 % (35.3-44.9) L 10/14/17 14:55 RDW 14.8 % (11.5-14.5) H 10/14/17 14:55 Neutrophils # 10.4 K/mcL (1.6-8.9) H 10/14/17 14:55 Monocytes # 1.9 K/mcL (0.0-1.3) H 10/14/17 14:55 Sodium 131 mEq/L (136-145) L 10/14/17 14:55 Potassium 4.7 mEq/L (3.5-4.5) H 10/14/17 14:55 Carbon Dioxide 18 mEq/L (19-29) L 10/14/17 14:55 BUN 42 mg/dL (7-20) H 10/14/17 14:55 Creatinine 1.73 mg/dL (0.57-1.11) H 10/14/17 14:55 Est GFR ( Amer) 34 (> 60) L 10/14/17 14:55 Est GFR (Non-Af Amer) 28 (> 60) L 10/14/17 14:55 Glucose 235 mg/dL (70-99) H 10/14/17 14:55 POC Glucose 168 (58-89) H 10/14/17 11:42 Calcium 8.4 mg/dL (8.6-10.8) L 10/14/17 14:55 Urine Clarity Turbid (Clear) A 10/12/17 12:13 Urine Protein 30 mg/dL (Neg-Trace) H 10/12/17 12:13 Urine Ketones Trace mg/dL (Negative) H 10/12/17 12:13 Urine Blood Trace (Negative) H 10/12/17 12:13 Ur Leukocyte Esterase Large (Negative) H 10/12/17 12:13 Urine Microscopic RBC 5-15 per hpf (0-3) H 10/12/17 12:13 Urine Microscopic WBC TNTC per hpf (0-3) H 10/12/17 12:13 Ur Squamous Epith Cells Many per lpf (None-Few) H 10/12/17 12:13 Urine Bacteria Many per hpf (None-Few) H 10/12/17 12:13 - VTE Documentation of Mechanical Device: Venous foot pump, device Consult Discharge Plan - Plan Referrals: Margie Champion DO [Primary Care Provider] -
[2017-10-14] MEDS: Sennosides/Docusate Sodium TABLET PO SCH (20:46)
[2017-10-14] MEDS ORDERED: Melatonin 3 MG TABLET PO SCH (21:00)
--- NOTE | 2017-10-14 23:37 | Internal Med Progress Note ---
Date of Encounter: 10/14/17 Time of Encounter: 15:00 - Assessment and plan (1) Fall Current Visit: Yes Status: Acute Assessment and plan: PT/OT evaluation recommends ECF placement, but patient and daughter interested in going home with [facility]; Qualifiers: Encounter type: initial encounter Qualified Code(s): W19.XXXA - Unspecified fall, initial encounter (2) Closed right femoral fracture Current Visit: Yes Status: Acute Assessment and plan: Status post mechanical fall. Orthopedics on board. Status post right hemiarthroplasty, postoperative day 2. Doing well. Monitor hemoglobin. Physical and occupational therapy evaluation as above. Pain control with when necessary oral Percocet. Local wound care and wait bearing per orthopedics. Continue subcutaneous Lovenox. Qualifiers: Encounter type: initial encounter Femur location: base of neck Fracture alignment: displaced Qualified Code(s): S72.041A - Displaced fracture of base of neck of right femur, initial encounter for closed fracture (3) Fx humeral neck Current Visit: Yes Status: Acute Assessment and plan: Status post mechanical fall. Orthopedics on board. Conservative management with splinting at this time. Qualifiers: Encounter type: initial encounter Fracture type: closed Laterality: right Qualified Code(s): S42.211A - Unspecified displaced fracture of surgical neck of right humerus, initial encounter for closed fracture (4) Essential hypertension Current Visit: Yes Status: Chronic Assessment and plan: Blood pressure improved; resume home meds; (5) Hypothyroidism Current Visit: Yes Status: Chronic Assessment and plan: Continue levothyroxine. Qualifiers: Hypothyroidism type: unspecified Qualified Code(s): E03.9 - Hypothyroidism , unspecified (6) Multiple myeloma Current Visit: Yes Status: Chronic Qualifiers: Multiple myeloma remission status: in remission Qualified Code(s): C90.01 - Multiple myeloma in remission (7) CKD (chronic kidney disease), stage III Current Visit: Yes Status: Chronic Assessment and plan: Serum creatinine stable, around baseline. (8) Anemia Current Visit: Yes Status: Chronic Assessment and plan: Monitor hemoglobin for postoperative anemia. Qualifiers: Anemia type: unspecified type Qualified Code(s): D64.9 - Anemia, unspecified (9) Type 2 diabetes mellitus Current Visit: Yes Status: Chronic Assessment and plan: Blood sugars noted to be well controlled. Continue Accu-Chek blood glucose monitoring with sliding scale insulin. Diabetic diet. Qualifiers: Diabetes mellitus complication status: with kidney complications Diabetes mellitus complication detail: with chronic kidney disease Diabetes mellitus fpc insulin use: with fpc use Chronic kidney disease stage: stage 3 (moderate) Qualified Code(s): E11.22 - Type 2 diabetes mellitus with diabetic chronic kidney disease; N18.3 - Chronic kidney disease, stage 3 ( moderate); N18.3 - Chronic kidney disease, stage 3 (moderate); Z79.4 - residential (current) use of insulin; Z79.4 - residential (current) use of insulin; Z79.4 - salvage determiner (current) use of insulin; Z79.4 - residential (current) use of insulin (10) UTI (urinary tract infection) Current Visit: Yes Status: Acute Assessment and plan: urine culture grows gram neg rods, continue IV Rocephin; Qualifiers: Urinary tract infection type: site unspecified Hematuria presence: without hematuria Qualified Code(s): N39.0 - Urinary tract infection, site not specified - Subjective Interval history: Feels better; reports constipation; pain controlled; - Constitutional Vitals: Temp Pulse Resp BP Pulse Ox 98.6 F 105 18 158/57 93 10/14/17 19:37 10/14/17 19:37 10/14/17 19:37 10/14/17 19:37 10/14/17 19:37 General appearance: Present: A&O X 3, answers questions appropriately - Respiratory Respiratory exam: Present: CTAB. Absent: accessory muscle use, rales, rhonchi, wheezes - Cardiovascular Cardiovascular exam: Present: RRR, +S1, +S2. Absent: diastolic murmur, gallop, rubs, systolic murmur - GI/Abdominal GI/Abdominal exam: Present: normal bowel sounds, soft, no peritoneal signs. Absent: distended, tenderness - Extremities Exam Extremities exam: Present: warm, radial pulses palpable and symmetrical. Absent : calf tenderness, cyanotic, pedal edema Additional comments: right UE in sling; Internal Medicine: Result - Labs CBC & Chem 7: 10/14/17 14:55 10/14/17 14:55 Labs: Short CBC 10/14/17 Range/Units 14:55 WBC 14.8 H (4.3-11.1) K/mcL Hgb 8.2 L (11.5-15.4) g/dL Hct 25.2 L (35.3-44.9) % Plt Count 183 (140-400) K/mcL Neutrophils # 10.4 H (1.6-8.9) K/mcL BMP 10/14/17 14:55 Sodium 131 L Potassium 4.7 H Chloride 104 Carbon Dioxide 18 L BUN 42 H Creatinine 1.73 H Glucose 235 H Calcium 8.4 L - VTE Documentation of Mechanical Device: Venous foot pump, device Consult Discharge Plan - Plan Referrals: Margie Champion DO [Primary Care Provider] -
[2017-10-15 05:04] LABS: Basophils % 0.1 %; Eosinophils % 0.2 %; Hematocrit 21.8 % (35.3-44.9); Immature Granulocytes % 0.5 % (0-4); Lymphocytes # 1.6 K/mcL (0.6-4.6); Lymphocytes % 16.2 %; Mean Corpuscular HGB Conc 32.1 g/dL (31.6-35.5); Mean Corpuscular Hemoglobin 32.6 pg (28.0-33.3); Mean Corpuscular Volume 101.4 fL (83.0-100.0); Mean Platelet Volume 11.2 fL (9.4-12.4); Monocytes # 1.6 K/mcL (0.0-1.3); Monocytes % 16.4 %; Neutrophils # 6.6 K/mcL (1.6-8.9); Platelet Count 169 K/mcL (140-400); Red Blood Count 2.15 M/mcL (3.82-4.97); Red Cell Distribution Width 14.6 % (11.5-14.5); Segmented Neutrophils % 66.6 %
[2017-10-15 05:13] LABS: Calcium 8.5 mg/dL (8.6-10.8); Potassium 4.1 mEq/L (3.5-4.5)
[2017-10-15] MEDS: *HR* Enoxaparin 30 MG/0.3 ML SYRINGE SQ SCH (06:46)
[2017-10-15] MEDS: *HR* HYDROcodone/Acet 5/325 mg TABLET PO PRN ×3 (06:53→19:22)
[2017-10-15] MEDS: Folic Acid 1 MG TABLET PO SCH (08:39)
[2017-10-15] MEDS: amLODIPine 5 MG TABLET PO SCH (08:40)
[2017-10-15] MEDS: hydrALAZINE 10 MG TABLET PO SCH ×3 (08:41→20:39)
[2017-10-15] MEDS: Sennosides/Docusate Sodium TABLET PO SCH ×2 (08:41→20:39)
[2017-10-15] MEDS: Insulin LISPRO 300 UNITS/3 ML VIAL SQ SCH ×4 (08:43→21:39)
--- NOTE | 2017-10-15 12:41 | Orthopedics Progress Note ---
Date of Encounter: 10/15/17 Time of Encounter: 12:38 Subjective Principal diagnosis: Right hip and right proximal humerus fractures Interval history: Patient is postoperative day #1 after having had a hemiarthroplasty for right hip. She is doing quite well. Pain is well managed. Limited activities and ambulation thus far. Vital signs are stable she is afebrile. Dressings on the hip are clean and dry. Neurovascular exam is normal. Hemoglobin is 8.3, currently asymptomatic. Platelet count normal. Urinalysis was consistent with a urinary tract infection though a culture was not performed initially, a culture is currently pending. Impression: POD #1 hemiarthroplasty right hip 2. Right proximal humerus fracture Recommendation: Start more aggressive therapy as patient is able to tolerate. She can be weightbearing as tolerated on the right lower extremity with hip precautions being followed. She may be a candidate to try a right platform walker or a uni-walker depending upon her abilities. Limited use of the right shoulder distal. Recheck labs in a.m. Orthopedic status stable. 10/14/2017. Patient is postoperative day #2 hemiarthroplasty right hip. Pain is well managed at this time. Vital signs are stable. She is afebrile. Hip dressings are dry. Shoulder exam is stable. Hemoglobin is 8.2 and stable. Platelet count is normal. Urine culture is growing gram-negative kajal, exact identification and sensitivities pending. Impression: POD #2. Hemiarthroplasty right hip and right proximal humerus fracture Plan: Patient's family have decided against snf facility/ rehabilitation. Anticipate going home with home healthcare. Orthopedic status is stable for discharge at any time. Final culture results to determine appropriate antibiotics for urinary tract infection. . Patient is now postop day #3 hemiarthroplasty right hip and nonoperative management of a right proximal humerus fracture. She is continuing doing well. She appears improved overall. Vital signs are stable. She is afebrile. Hip incision is clean and dry. The patient's hemoglobin has dropped to 7.0. Platelet count remains normal. Kidney function has improved. Urine culture reveals 2 distinct gram-negative rods, identification and sensitivity is pending. Impression: POD #3. Hammer arthroplasty right hip and right proximal humerus fracture Recommendation: Patient remains stable from an orthopedic point of view. She will continue with weightbearing as tolerated in right lower extremity. She has been using a hemiwalker with success thus far. She is currently receiving packed red blood cells today. We will continue with IV antibiotics, convert to oral antibiotics pending the sensitivities of her urine cultures. Anticipate patient going home with home health probably in 24-48 hours. Objective Vital signs: Vital Signs Temp Pulse Resp BP Pulse Ox 10/15/17 11:28 98.2 F 77 16 152/66 97 10/15/17 06:07 98.5 F 86 18 149/63 95 10/14/17 23:41 98.4 F 69 18 158/55 97 10/14/17 19:37 98.6 F 105 18 158/57 93 10/14/17 15:57 98.8 F 82 16 149/62 94 Intake and Output 10/14/17 10/15/17 10/15/17 23:59 07:59 15:59 Intake Total 2553 / 2553 360 / 360 Output Total 300 / 300 300 / 300 Balance 2253 / 2253 60 / 60 Intake: IV Fluids 2553 / 2553 0.9 % Sodium Chloride 1,000 ML 543 / 543 @ 60 mls/hr IVC .[id number] [facility] Rx #:[id number] Rocephin 1,000 MG In Water for inj. (sterile) 10 ML @ 300 mls/ hr IVP Q24H [facility] Rx#:[id number] Oral 360 / 360 Output: Urine 300 / 300 300 / 300 Other: Meal Breakfast Percent of Meal Consumed 50% # Voids 1 # Urine Diapers 1 Blood Glucose* 271 175 184 - Labs CBC & BMP: 10/15/17 04:17 10/15/17 04:17 Labs: Abnormal lab results RBC 2.15 M/mcL (3.82-4.97) L 10/15/17 04:17 Hgb 7.0 g/dL (11.5-15.4) L 10/15/17 04:17 Hct 21.8 % (35.3-44.9) L 10/15/17 04:17 MCV 101.4 fL (83.0-100.0) H 10/15/17 04:17 RDW 14.6 % (11.5-14.5) H 10/15/17 04:17 Monocytes # 1.6 K/mcL (0.0-1.3) H 10/15/17 04:17 Sodium 135 mEq/L (136-145) L 10/15/17 04:17 BUN 38 mg/dL (7-20) H 10/15/17 04:17 Creatinine 1.37 mg/dL (0.57-1.11) H 10/15/17 04:17 Est GFR ( Amer) 44 (> 60) L 10/15/17 04:17 Est GFR (Non-Af Amer) 37 (> 60) L 10/15/17 04:17 BUN/Creatinine Ratio 28 (6-26) H 10/15/17 04:17 Glucose 144 mg/dL (70-99) H 10/15/17 04:17 POC Glucose 184 (58-89) H 10/15/17 11:29 Calcium 8.5 mg/dL (8.6-10.8) L 10/15/17 04:17 Urine Clarity Turbid (Clear) A 10/12/17 12:13 Urine Protein 30 mg/dL (Neg-Trace) H 10/12/17 12:13 Urine Ketones Trace mg/dL (Negative) H 10/12/17 12:13 Urine Blood Trace (Negative) H 10/12/17 12:13 Ur Leukocyte Esterase Large (Negative) H 10/12/17 12:13 Urine Microscopic RBC 5-15 per hpf (0-3) H 10/12/17 12:13 Urine Microscopic WBC TNTC per hpf (0-3) H 10/12/17 12:13 Ur Squamous Epith Cells Many per lpf (None-Few) H 10/12/17 12:13 Urine Bacteria Many per hpf (None-Few) H 10/12/17 12:13 - VTE Documentation of Mechanical Device: Intermittent pneumatic compression device Consult Discharge Plan - Plan Referrals: Margie Champion DO [Primary Care Provider] -
[2017-10-15] MEDS ORDERED: 0.9 % Sodium Chloride 250 ML ONE (13:06)
--- NOTE | 2017-10-15 13:19 | Internal Med Progress Note ---
Date of Encounter: 10/15/17 Time of Encounter: 13:17 - Assessment and plan (1) Closed right femoral fracture Current Visit: Yes Status: Acute Assessment and plan: secondary to mechanical fall. S/p Right hemiarthroplasty on 10/12/[address] Feliz. Evaluated by PT/OT who is recommending SNIF however daughter and patient prefer home with [facility]. Local wound care and wait bearing per orthopedics. Qualifiers: Encounter type: initial encounter Femur location: base of neck Fracture alignment: displaced Qualified Code(s): S72.041A - Displaced fracture of base of neck of right femur, initial encounter for closed fracture (2) Fx humeral neck Current Visit: Yes Status: Acute Assessment and plan: Status post mechanical fall. Orthopedics on board. Conservative management with splinting at this time. Qualifiers: Encounter type: initial encounter Fracture type: closed Laterality: right Qualified Code(s): S42.211A - Unspecified displaced fracture of surgical neck of right humerus, initial encounter for closed fracture (3) Fall Current Visit: Yes Status: Acute Assessment and plan: PT/OT evaluation recommends ECF placement, but patient and daughter interested in going home with [facility]; Qualifiers: Encounter type: initial encounter Qualified Code(s): W19.XXXA - Unspecified fall, initial encounter (4) Iron (Fe) deficiency anemia Current Visit: Yes Status: Acute Assessment and plan: Baseline Hgb appears to be 9-10. Hgb dropped to 7 on 10/15. No active bleeding. Stop Lovenox. Transfuse 1 unit PRBC. Occult stool pending. Qualifiers: Iron deficiency anemia type: other iron deficiency Qualified Code(s): D50.8 - Other iron deficiency anemias (5) UTI (urinary tract infection) Current Visit: Yes Status: Acute Assessment and plan: urine culture grows gram neg rods, continue IV Rocephin. Culture pending. Qualifiers: Urinary tract infection type: site unspecified Hematuria presence: without hematuria Qualified Code(s): N39.0 - Urinary tract infection, site not specified (6) Essential hypertension Current Visit: Yes Status: Chronic Assessment and plan: Blood pressure improved; resume home meds; (7) Hypothyroidism Current Visit: Yes Status: Chronic Assessment and plan: Continue levothyroxine. Qualifiers: Hypothyroidism type: unspecified Qualified Code(s): E03.9 - Hypothyroidism , unspecified (8) Type 2 diabetes mellitus Current Visit: Yes Status: Chronic Assessment and plan: Blood sugars noted to be well controlled. Continue Accu-Chek blood glucose monitoring with sliding scale insulin. Diabetic diet. Qualifiers: Diabetes mellitus complication status: with kidney complications Diabetes mellitus complication detail: with chronic kidney disease Diabetes mellitus termite control servicer insulin use: with termite control servicer use Chronic kidney disease stage: stage 3 (moderate) Qualified Code(s): E11.22 - Type 2 diabetes mellitus with diabetic chronic kidney disease; N18.3 - Chronic kidney disease, stage 3 ( moderate); N18.3 - Chronic kidney disease, stage 3 (moderate); Z79.4 - snf (current) use of insulin; Z79.4 - snf (current) use of insulin; Z79.4 - snf (current) use of insulin; Z79.4 - snf (current) use of insulin - Subjective Interval history: CC At bedside. Patient is new to me, information obtained from chart review and patient report although family at bedside answers questions for patient. I was able to attain from patient that she still having some right arm and hip pain. Says [place] helps but makes her confused at times. Daughter at bedside and says [place] helps patient's pain. She also reports patient sees pain management [place] and has been on [place] for years. Daughter concerned patient is having nightmares and requesting melatonin be stopped and switched to Restoril. - Constitutional Vitals: Temp Pulse Resp BP Pulse Ox 98.2 F 77 16 152/66 97 10/15/17 11:28 10/15/17 11:28 10/15/17 11:28 10/15/17 11:28 10/15/17 11:28 General appearance: Present: A&O X 3, answers questions appropriately - Head Head exam: Present: atraumatic, normocephalic - Eye Eye exam: Present: PERRL, conjuntiva pink, sclera anicteric Pupils: Present: PERRL - Neck Neck exam general surgery: Present: supple, trachea midline. Absent: lymphadenopathy - Respiratory Respiratory exam: Present: CTAB. Absent: accessory muscle use, rales, rhonchi, wheezes - Cardiovascular Cardiovascular exam: Present: RRR, +S1, +S2. Absent: diastolic murmur, gallop, rubs, systolic murmur - GI/Abdominal GI/Abdominal exam: Present: normal bowel sounds, soft, no peritoneal signs. Absent: distended, tenderness - Extremities Exam Extremities exam: Present: pedal edema, warm, radial pulses palpable and symmetrical. Absent: calf tenderness, cyanotic Additional comments: Right upper extremity in sling and swath. Right hip dressing clean dry and intact. - Neurological Exam Neurological exam: Present: CN II-XII intact, oriented X3, no focal deficits. Absent: pronater drift, facial droop, speech deficit - Skin Skin exam: Present: dry, intact, pallor Internal Medicine: Result - Labs CBC & Chem 7: 10/15/17 04:17 10/15/17 04:17 Labs: Short CBC 10/14/17 10/15/17 Range/Units 14:55 04:17 WBC 14.8 H 9.8 (4.3-11.1) K/mcL Hgb 8.2 L 7.0 L (11.5-15.4) g/dL Hct 25.2 L 21.8 L (35.3-44.9) % Plt Count 183 169 (140-400) K/mcL Neutrophils # 10.4 H 6.6 (1.6-8.9) K/mcL BMP 10/14/17 10/15/17 14:55 04:17 Sodium 131 L 135 L Potassium 4.7 H 4.1 Chloride 104 106 Carbon Dioxide 18 L 25 BUN 42 H 38 H Creatinine 1.73 H 1.37 H Glucose 235 H 144 H Calcium 8.4 L 8.5 L - VTE Documentation of Mechanical Device: Intermittent pneumatic compression device Consult Discharge Plan - Plan Referrals: Margie Champion DO [Primary Care Provider] -
[2017-10-15] MEDS ORDERED: Temazepam 15 MG CAPSULE PO PRN (13:21)
[2017-10-15] MEDS: cefTRIAXone 1,000 MG in Water for inj. (sterile) 10 ML IVP SCH (17:34)
[2017-10-16] MEDS: *HR* HYDROcodone/Acet 5/325 mg TABLET PO PRN ×3 (00:04→13:08)
[2017-10-16] MEDS: *HR* Enoxaparin 30 MG/0.3 ML SYRINGE SQ SCH (06:15)
--- NOTE | 2017-10-16 07:37 | Orthopedics Progress Note ---
Date of Encounter: 10/16/17 Time of Encounter: 07:34 Subjective Principal diagnosis: Right hip and right proximal humerus fractures Interval history: Patient is postoperative day #1 after having had a hemiarthroplasty for right hip. She is doing quite well. Pain is well managed. Limited activities and ambulation thus far. Vital signs are stable she is afebrile. Dressings on the hip are clean and dry. Neurovascular exam is normal. Hemoglobin is 8.3, currently asymptomatic. Platelet count normal. Urinalysis was consistent with a urinary tract infection though a culture was not performed initially, a culture is currently pending. Impression: POD #1 hemiarthroplasty right hip 2. Right proximal humerus fracture Recommendation: Start more aggressive therapy as patient is able to tolerate. She can be weightbearing as tolerated on the right lower extremity with hip precautions being followed. She may be a candidate to try a right platform walker or a uni-walker depending upon her abilities. Limited use of the right shoulder distal. Recheck labs in a.m. Orthopedic status stable. 10/14/2017. Patient is postoperative day #2 hemiarthroplasty right hip. Pain is well managed at this time. Vital signs are stable. She is afebrile. Hip dressings are dry. Shoulder exam is stable. Hemoglobin is 8.2 and stable. Platelet count is normal. Urine culture is growing gram-negative kajal, exact identification and sensitivities pending. Impression: POD #2. Hemiarthroplasty right hip and right proximal humerus fracture Plan: Patient's family have decided against longterm facility/ rehabilitation. Anticipate going home with home healthcare. Orthopedic status is stable for discharge at any time. Final culture results to determine appropriate antibiotics for urinary tract infection. . Patient is now postop day #3 hemiarthroplasty right hip and nonoperative management of a right proximal humerus fracture. She is continuing doing well. She appears improved overall. Vital signs are stable. She is afebrile. Hip incision is clean and dry. The patient's hemoglobin has dropped to 7.0. Platelet count remains normal. Kidney function has improved. Urine culture reveals 2 distinct gram-negative rods, identification and sensitivity is pending. Impression: POD #3. Ji arthroplasty right hip and right proximal humerus fracture Recommendation: Patient remains stable from an orthopedic point of view. She will continue with weightbearing as tolerated in right lower extremity. She has been using a hemiwalker with success thus far. She is currently receiving packed red blood cells today. We will continue with IV antibiotics, convert to oral antibiotics pending the sensitivities of her urine cultures. Anticipate patient going home with home health probably in 24-48 hours. 10/16/2017. Patient is POD #4 hemiarthroplasty right hip. Feeling better. Vital signs are stable. She is afebrile. Dressings remain clean and dry. Urine culture reveals Escherichia coli. Impression: POD #4 hemiarthroplasty right hip and right proximal humerus fracture Recommendation: Orthopedic status is stable. Patient can continue with weightbearing as tolerated with hip precautions. No dressing changes required. Patient can shower with an intact dressing. Will need follow-up with me in about 2 weeks' time. I will be unavailable after today, Dr. Preciado will be available if needed. Objective Vital signs: Vital Signs Temp Pulse Resp BP Pulse Ox 10/16/17 06:58 98.0 F 82 15 165/56 96 10/16/17 04:53 97.5 F L 85 18 175/66 98 10/16/17 00:05 98 F 76 17 136/64 96 10/15/17 18:24 98.1 F 89 19 133/64 95 10/15/17 17:23 99.5 F 87 16 152/56 96 10/15/17 13:49 99.1 F 78 16 145/55 10/15/17 13:16 98.6 F 81 16 136/62 10/15/17 11:28 98.2 F 77 16 152/66 97 Intake and Output 10/15/17 10/15/17 10/16/17 15:59 23:59 07:59 Intake Total 600 / 600 577 / 577 600 / 600 Output Total 300 / 300 1250 / 1250 Balance 300 / 300 577 / 577 -650 / -650 Intake: IV Fluids 0.9 % Sodium Chloride 250 ML As .ROUTE .STK-MED ONE Rx#: [id number] Oral 600 / 600 200 / 200 600 / 600 Blood Product 0 / 0 315 / 315 Rbcs Leuko Poor As-1 Unit 0 / 0 315 / 315 [id number] Output: Urine 300 / 300 1250 / 1250 Other: Meal Lunch Dinner Percent of Meal Consumed 50% 50% # Voids 1 6 # Urine Diapers 1 Blood Glucose* 184 241 173 - Labs CBC & BMP: 10/15/17 04:17 10/15/17 04:17 Labs: Abnormal lab results RBC 2.15 M/mcL (3.82-4.97) L 10/15/17 04:17 Hgb 7.0 g/dL (11.5-15.4) L 10/15/17 04:17 Hct 21.8 % (35.3-44.9) L 10/15/17 04:17 MCV 101.4 fL (83.0-100.0) H 10/15/17 04:17 RDW 14.6 % (11.5-14.5) H 10/15/17 04:17 Monocytes # 1.6 K/mcL (0.0-1.3) H 10/15/17 04:17 Sodium 135 mEq/L (136-145) L 10/15/17 04:17 BUN 38 mg/dL (7-20) H 10/15/17 04:17 Creatinine 1.37 mg/dL (0.57-1.11) H 10/15/17 04:17 Est GFR ( Amer) 44 (> 60) L 10/15/17 04:17 Est GFR (Non-Af Amer) 37 (> 60) L 10/15/17 04:17 BUN/Creatinine Ratio 28 (6-26) H 10/15/17 04:17 Glucose 144 mg/dL (70-99) H 10/15/17 04:17 POC Glucose 173 (58-89) H 10/16/17 07:00 Calcium 8.5 mg/dL (8.6-10.8) L 10/15/17 04:17 Urine Clarity Turbid (Clear) A 10/12/17 12:13 Urine Protein 30 mg/dL (Neg-Trace) H 10/12/17 12:13 Urine Ketones Trace mg/dL (Negative) H 10/12/17 12:13 Urine Blood Trace (Negative) H 10/12/17 12:13 Ur Leukocyte Esterase Large (Negative) H 10/12/17 12:13 Urine Microscopic RBC 5-15 per hpf (0-3) H 10/12/17 12:13 Urine Microscopic WBC TNTC per hpf (0-3) H 10/12/17 12:13 Ur Squamous Epith Cells Many per lpf (None-Few) H 10/12/17 12:13 Urine Bacteria Many per hpf (None-Few) H 10/12/17 12:13 - VTE Documentation of Mechanical Device: Venous foot pump, device Consult Discharge Plan - Plan Referrals: Margie Champion DO [Primary Care Provider] -
[2017-10-16 07:50] LABS: Hematocrit 29.3 % (35.3-44.9); Mean Corpuscular HGB Conc 31.1 g/dL (31.6-35.5); Mean Corpuscular Hemoglobin 31.4 pg (28.0-33.3); Platelet Count 195 K/mcL (140-400); Red Cell Distribution Width 17.7 % (11.5-14.5)
[2017-10-16 07:51] LABS: Hemoglobin 9.1 g/dL (11.5-15.4)
[2017-10-16 08:05] LABS: Calcium 8.9 mg/dL (8.6-10.8); Potassium 3.9 mEq/L (3.5-4.5)
[2017-10-16] MEDS: hydrALAZINE 10 MG TABLET PO SCH (08:27)
[2017-10-16] MEDS: Folic Acid 1 MG TABLET PO SCH (08:27)
[2017-10-16] MEDS: amLODIPine 5 MG TABLET PO SCH (08:27)
[2017-10-16] MEDS: Sennosides/Docusate Sodium TABLET PO SCH (08:28)
[2017-10-16] MEDS: Insulin LISPRO 300 UNITS/3 ML VIAL SQ SCH ×2 (08:29→12:52)
--- NOTE | 2017-10-16 08:38 | Discharge Summary ---
Date of Encounter: 10/16/17 Time of Encounter: 08:36 - Discharge Diagnosis (1) Closed right femoral fracture Priority: Primary Status: Acute Comments: secondary to mechanical fall. S/p Right hemiarthroplasty on 10/12/[address] Feliz. Continue weightbearing as tolerated with hip precautions. Follow-up with Dr. Feliz in 2 weeks Qualifiers: Encounter type: initial encounter Femur location: base of neck Fracture alignment: displaced Qualified Code(s): S72.041A - Displaced fracture of base of neck of right femur, initial encounter for closed fracture (2) Fx humeral neck Priority: Primary Status: Acute Comments: Status post mechanical fall. Conservative management with splinting at this time per Ortho. Follow-up with Dr. Feliz in 2 weeks Qualifiers: Encounter type: initial encounter Fracture type: closed Laterality: right Qualified Code(s): S42.211A - Unspecified displaced fracture of surgical neck of right humerus, initial encounter for closed fracture (3) Fall Priority: Primary Status: Acute Comments: s/p fall on day of admission. Mechanical in nature. No further workup needed at this time. Qualifiers: Encounter type: initial encounter Qualified Code(s): W19.XXXA - Unspecified fall, initial encounter (4) Iron (Fe) deficiency anemia Priority: Primary Status: Acute Comments: Baseline Hgb appears to be 9-10. Hgb dropped to 7 on 10/15. No active bleeding. S/p 1 unit PRBC. Repeat Hgb 9.1. Recommend repeat CBC in 3-5 days Qualifiers: Iron deficiency anemia type: other iron deficiency Qualified Code(s): D50.8 - Other iron deficiency anemias (5) UTI (urinary tract infection) Priority: Primary Status: Acute Comments: UA indicative of UTI. IV ceftriaxone started on admission. Urine cx with E.coli, [place]-sensitive. Change ceftriaxone to Macrobid. Qualifiers: Urinary tract infection type: site unspecified Hematuria presence: without hematuria Qualified Code(s): N39.0 - Urinary tract infection, site not specified (6) Essential hypertension Priority: Primary Status: Chronic Comments: Per history. BP variable but acceptable. Continue home BP medications. (7) Hypothyroidism Priority: Primary Status: Chronic Comments: Continue levothyroxine. Qualifiers: Hypothyroidism type: unspecified Qualified Code(s): E03.9 - Hypothyroidism , unspecified (8) Type 2 diabetes mellitus Priority: Primary Status: Chronic Comments: Blood sugars noted to be well controlled. Continue Accu-Chek blood glucose monitoring with sliding scale insulin. Diabetic diet. 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 Chronic kidney disease stage: stage 3 (moderate) Qualified Code(s): E11.22 - Type 2 diabetes mellitus with diabetic chronic kidney disease; N18.3 - Chronic kidney disease, stage 3 ( moderate); N18.3 - Chronic kidney disease, stage 3 (moderate); Z79.4 - [facility] (current) use of insulin; Z79.4 - [facility] (current) use of insulin; Z79.4 - [facility] (current) use of insulin; 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 - Discharge Medications Prescriptions: HYDROcodone/Acet 7.5/325 mg [[place] 7.5-325 mg] 1 tab PO Q8H PRN #21 tablet PRN Reason: Pain Nitrofurantoin Monohyd/M-Cryst [Macrobid 100 mg Capsule] 100 mg PO BID #14 capsule Home Medications: Ranitidine HCl [Zantac] 150 mg PO BID #60 tablet 01/22/17 [Rx] Folic Acid 0.4 mg PO DAILY 04/23/17 [History] Lisinopril [Zestril] 40 mg PO DAILY 04/23/17 [History] Lovastatin 10 mg PO DAILY 04/23/17 [History] Metoprolol [Lopressor] 50 mg PO BID 04/23/17 [History] Pioglitazone [Actos] 45 mg PO 0800 04/23/17 [History] Amlodipine Besylate 10 mg PO DAILY 10/13/17 [History] Ascorbate Calcium [Vitamin C] 500 mg PO DAILY 10/13/17 [History] Aspirin [Lo-Dose Aspirin EC] 81 mg PO DAILY 10/13/17 [History] Ca/D3/Mag#11/Zinc/Particleboard Factory Worker/Bill/Bor [Caltrate 600+D Plus Tablet] 1 tab PO DAILY 10/13 [History] Gabapentin [Neurontin] 600 mg PO BID 10/13/17 [History] Insulin Glargine,Hum.rec.anlog [Basaglar Kwikpen U-100] 12 unit SQ DAILY [History] Levothyroxine [Synthroid] 75 mcg PO 0630 10/13/17 [History] Multivitamin [Multivitamins] 1 cap PO DAILY 10/13/17 [History] Omeprazole [PriLOSEC] 40 mg PO DAILY 10/13/17 [History] Oxybutynin [Ditropan] 5 mg PO DAILY 10/13/17 [History] hydrALAZINE [HydrALAZINE] 10 mg PO TID 10/13/17 [History] Enoxaparin [Lovenox] 40 mg SQ DAILY #10 syr 10/16/17 [Rx] HYDROcodone/Acet 7.5/325 mg [[place] 7.5-325 mg] 1 tab PO Q8H PRN #21 tablet 10/16 [Rx] Nitrofurantoin Monohyd/M-Cryst [Macrobid 100 mg Capsule] 100 mg PO BID #14 capsule 10/16/17 [Rx] Allergies/Adverse Reactions: 3 Allergy/AdvReac Type Severity Reaction Status Date / Time No Known Allergies Allergy Verified 10/13/17 16:04 Date of admission: 10/12/17 09:14 Primary care physician: Saturnino Yarbrough Consults: 10/12/17 19:37 Consult to Framework Developer [CONS] Routine Reason for SW Consult: DC Planning Discharging clinician: Zenia Antonio Anticipated date of discharge: 10/16/17 - Patient Status Disposition: Home Health Service Condition: Fair Functional capacity at discharge: uses cane/walker Overall status at discharge: patient is progressing back to baseline - Discharge Instructions Instructions: Arm Fracture in Adults (DC), Hip Fracture (GEN), Urinary Tract Infection in Women (DC), Nitrofurantoin Combination (By mouth), Enoxaparin ( Injection), Anemia (DC) Follow Up With: Margie Champion DO [Primary Care Provider] - Additional Instructions: Please call your PCP within 24 hours for the next business day to schedule follow-up appointment - Diet and Activity Activity: as per physical therapy Diet: advance to your usual diet Interval History: Seen and examined at bedside. Patient says she had an uneventful night, slept well. Still with right hip pain that is worse with activity and ambulation better overall manageable. No chest pain or shortness of breath. Received 1 unit PRBC yesterday without incident. No chest pain or shortness of breath. Discussed with daughter the need to continue subcutaneous Lovenox injection. Also discussed the daughter my concern with patient discharging to home versus SNF as she is more likely to have more help at [facility]dc facility and blood work can be monitored closely. Daughter reiterated that patient is adamant that she is not going to rehabilitation at daughter states she will be able to handle it at home. Hospital course: See assessment and plan for hospital course. - Time Spent with Patient Total time spent providing and/or coordinating discharge services: Greater than 30 minutes (45 minutes spent on discharge.) - Constitutional Vitals: Temp Pulse Resp BP Pulse Ox 98.0 F 82 15 165/56 96 10/16/17 06:58 10/16/17 06:58 10/16/17 06:58 10/16/17 06:58 10/16/17 06:58 General appearance: Present: A&O X 3, answers questions appropriately - Head Head exam: Present: atraumatic, normocephalic - Eye Eye exam: Present: PERRL, conjuntiva pink, sclera anicteric Pupils: Present: PERRL - Neck Neck exam general surgery: Present: supple, trachea midline. Absent: lymphadenopathy - Respiratory Respiratory exam: Present: CTAB. Absent: accessory muscle use, rales, rhonchi, wheezes - Cardiovascular Cardiovascular exam: Present: RRR, +S1, +S2. Absent: diastolic murmur, gallop, rubs, systolic murmur - GI/Abdominal GI/Abdominal exam: Present: normal bowel sounds, soft, no peritoneal signs. Absent: distended, tenderness - Extremities Exam Extremities exam: Present: pedal edema, warm, radial pulses palpable and symmetrical. Absent: calf tenderness, cyanotic Additional comments: Trace bilateral edema lower extremity edema. Dressing to status post right hip surgery site clean and dry and intact. No drainage apparent. - Neurological Exam Neurological exam: Present: CN II-XII intact, oriented X3, no focal deficits. Absent: pronater drift, facial droop, speech deficit - Skin Skin exam: Present: dry, intact - VTE Documentation of Mechanical Device: Venous foot pump, device
[2017-10-16 09:31] LABS: Magnesium 1.3 mg/dL (1.6-2.6)
--- NOTE | 2017-10-16 13:55 | Physician Discharge Referral ---
<Zenia Antonio J - Last Filed: 10/16/17 13:54> Home Health/Hosp Referral Info Transfer to: Home Health Attending Provider: Zenia Antonio CNP Provider in Charge Post Discharge: PCP - Diagnosis (1) Closed right femoral fracture Status: Acute (2) Fx humeral neck Status: Acute (3) Fall Status: Acute (4) Iron (Fe) deficiency anemia Status: Acute (5) UTI (urinary tract infection) Status: Acute (6) Essential hypertension Status: Chronic (7) Hypothyroidism Status: Chronic (8) Type 2 diabetes mellitus Status: Chronic - Respiratory Orders None Smoking Cessation: Smoking cessation has been advised. For more information, call the [employer] Tobacco Quit Line at 9-475-COUM-NOW. - Dressing/Wound Care Site: Dry-cleaning dressing to right hip daily - Diet/Nutrition Diet/Nutrition Orders: No Concentrated Sweets - Activity Activity Orders: Walker - Services Needed Following services are medically necessary services: Nursing, Home Health Aide, Physical Therapy, Occupational Therapy - Transfer Medications Prescriptions: Enoxaparin [Lovenox] 40 mg SQ DAILY #10 syr HYDROcodone/Acet 7.5/325 mg [[place] 7.5-325 mg] 1 tab PO Q8H PRN #21 tablet PRN Reason: Pain Nitrofurantoin Monohyd/M-Cryst [Macrobid 100 mg Capsule] 100 mg PO BID #14 capsule Home Medications: Ranitidine HCl [Zantac] 150 mg PO BID #60 tablet 01/22/17 [Rx] Folic Acid 0.4 mg PO DAILY 04/23/17 [History] Lisinopril [Zestril] 40 mg PO DAILY 04/23/17 [History] Lovastatin 10 mg PO DAILY 04/23/17 [History] Metoprolol [Lopressor] 50 mg PO BID 04/23/17 [History] Pioglitazone [Actos] 45 mg PO 0800 04/23/17 [History] Amlodipine Besylate 10 mg PO DAILY 10/13/17 [History] Ascorbate Calcium [Vitamin C] 500 mg PO DAILY 10/13/17 [History] Aspirin [Lo-Dose Aspirin EC] 81 mg PO DAILY 10/13/17 [History] Ca/D3/Mag#11/Zinc/Quality Reviewer/Bill/Bor [Caltrate 600+D Plus Tablet] 1 tab PO DAILY 10/13 [History] Gabapentin [Neurontin] 600 mg PO BID 10/13/17 [History] Insulin Glargine,Hum.rec.anlog [Basaglar Kwikpen U-100] 12 unit SQ DAILY [History] Levothyroxine [Synthroid] 75 mcg PO 0630 10/13/17 [History] Multivitamin [Multivitamins] 1 cap PO DAILY 10/13/17 [History] Omeprazole [PriLOSEC] 40 mg PO DAILY 10/13/17 [History] Oxybutynin [Ditropan] 5 mg PO DAILY 10/13/17 [History] hydrALAZINE [HydrALAZINE] 10 mg PO TID 10/13/17 [History] Enoxaparin [Lovenox] 40 mg SQ DAILY #10 syr 10/16/17 [Rx] HYDROcodone/Acet 7.5/325 mg [[place] 7.5-325 mg] 1 tab PO Q8H PRN #21 tablet 10/16 [Rx] Nitrofurantoin Monohyd/M-Cryst [Macrobid 100 mg Capsule] 100 mg PO BID #14 capsule 10/16/17 [Rx] Allergies/Adverse Reactions: 3 Allergy/AdvReac Type Severity Reaction Status Date / Time No Known Allergies Allergy Verified 10/13/17 16:04 Certification: Further, I certify that my clinical findings support that this patient is homebound (i.e. absences from home require considerable and taxing effort and are for medical reasons or restorationism services or infrequently or short duration when for other reasons) because: Homebound Reason: Patient requires assistance of a person or device to safely leave home Attestation: My signature below is to certify that this patient is under my care and that I, or nurse practitioner, or a physician's academic assistant working with me, has a face-to -face encounter with this patient. <João Carrero - Last Filed: 10/16/17 14:20> - Respiratory Orders Smoking Cessation: Smoking cessation has been advised. For more information, call the [place] Tobacco Quit Line at 7-732-RKVY-NOW. Certification: Further, I certify that my clinical findings support that this patient is homebound (i.e. absences from home require considerable and taxing effort and are for medical reasons or restorationism services or infrequently or short duration when for other reasons) because: Attestation: My signature below is to certify that this patient is under my care and that I, or nurse practitioner, or a physician's academic assistant working with me, has a face-to -face encounter with this patient.
[2017-10-16 16:06] VITALS: BP 148/22
== END 2017-10-16 16:42 | disposition home health service (06) | DRG 470 ==
LOC: 3NENU 01:56 → EMEROO 01:56 → 3NENU 05:51 → SUATTDRO 09:14
PROVIDERS: ADMIT Internal Medicine; ATTEND Internal Medicine

== ENCOUNTER 2017-11-15 08:53 | Inpatient (IN) ==
--- NOTE | 2017-11-15 09:07 | Emergency Department Note ---
Disposition Clinical Impression: Chronic kidney disease, Uremic acidosis, Anemia Disposition: Admitted As Inpatient General Adult HPI - General Chief complaint: ED Recheck/Abnormal Lab/Rx Stated complaint: abn labs Time Seen by Provider: 11/15/17 08:55 - Related Data Home Medications Medication Instructions Recorded Confirmed Folic Acid 0.4 mg PO DAILY 04/23/17 11/15/17 Lisinopril [Zestril] 40 mg PO DAILY 04/23/17 11/15/17 Lovastatin 10 mg PO DAILY 04/23/17 11/15/17 Metoprolol [Lopressor] 50 mg PO BID 04/23/17 11/15/17 Pioglitazone [Actos] 45 mg PO 0800 04/23/17 11/15/17 Amlodipine Besylate 10 mg PO DAILY 10/13/17 11/15/17 Ascorbate Calcium [Vitamin C] 500 mg PO DAILY 10/13/17 11/15/17 Aspirin [Lo-Dose Aspirin EC] 81 mg PO DAILY 10/13/17 11/15/17 Ca/D3/Mag#11/Zinc/Pi/Senior Research Associate/Bill/Bor 1 tab PO DAILY 10/13/17 11/15/17 [Caltrate 600+D Plus Tablet] Gabapentin [Neurontin] 600 mg PO BID 10/13/17 11/15/17 Insulin Glargine,Hum.rec.anlog 12 unit SQ DAILY 10/13/17 11/15/17 [Basaglar Kwikpen U-100] Levothyroxine [Synthroid] 75 mcg PO 0630 10/13/17 11/15/17 Multivitamin [Multivitamins] 1 cap PO DAILY 10/13/17 11/15/17 Omeprazole [PriLOSEC] 40 mg PO DAILY 10/13/17 11/15/17 Oxybutynin [Ditropan] 5 mg PO DAILY 10/13/17 11/15/17 hydrALAZINE [HydrALAZINE] 10 mg PO TID 10/13/17 11/15/17 Ondansetron [Zofran] 8 mg PO Q8HR 11/04/17 11/15/17 traZODone [TraZODone] 50 mg PO HS 11/15/17 11/15/17 Previous Rx's Medication Instructions Recorded HYDROcodone/Acet 7.5/325 mg [[place] 1 tab PO Q8H PRN #21 tablet 10/16/17 7.5-325 mg] Polyethylene Glycol 3350 [MiraLAX 1 scoop PO DAILY #510 gm 11/04/17 Powder Bulk 17.9 Oz] Ranitidine HCl [Zantac] 150 mg PO BID #60 tablet 11/04/17 Allergies Allergy/AdvReac Type Severity Reaction Status Date / Time No Known Allergies Allergy Verified 11/15/17 08:54 Past Medical History - Past Medical History Medical history: Reports: arthritis, cancer (Multiple myeloma, not on treatment) , diabetes, GERD, hypertension, kidney stones, renal disease, other Surgical history: Reports: cholecystectomy, orthopedic, other (Right great toe amputation), other (Lumbar spinal fusion surgery) Psychiatric history: Reports: no psych history, schizophrenia - Social History Smoking Status: Never smoker Smokeless Tobacco Status: No Alcohol use: Reports: unknown Drug use: Reports: none Course Vital Signs Temperature 98.2 F 11/15/17 08:59 Pulse Rate 45 11/15/17 08:59 Respiratory Rate 16 11/15/17 08:59 Blood Pressure 121/41 11/15/17 08:59 O2 Sat by Pulse Oximetry 96 11/15/17 08:59 Temperature 98.3 F 11/15/17 11:59 Pulse Rate 65 11/15/17 11:59 Respiratory Rate 18 11/15/17 11:59 Blood Pressure 125/54 11/15/17 11:59 O2 Sat by Pulse Oximetry 94 11/15/17 11:59 Oxygen Delivery Oxygen Delivery Room Air Medical Decision Making - Lab Data Result diagrams: 11/15/17 09:05 11/15/17 13:53 Lab Results 11/15/17 11/15/17 11/15/17 Range/Units 09:05 09:05 10:00 WBC 11.9 H (4.3-11.1) K/mcL RBC 2.65 L (3.82-4.97) M/mcL Hgb 8.6 L (11.5-15.4) g/dL Hct 27.3 L (35.3-44.9) % MCV 103.0 H (83.0-100.0) fL MCH 32.5 (28.0-33.3) pg MCHC 31.5 L (31.6-35.5) g/dL RDW 18.9 H (11.5-14.5) % Plt Count 270 (140-400) K/mcL MPV 10.1 (9.4-12.4) fL Immature Gran % 0.8 (0-4) % Seg Neutrophils % 65.0 % Lymphocytes % 21.2 % Monocytes % 11.1 % Eosinophils % 1.7 % Basophils % 0.2 % Neutrophils # 7.7 (1.6-8.9) K/mcL Lymphocytes # 2.5 (0.6-4.6) K/mcL Monocytes # 1.3 (0.0-1.3) K/mcL Eosinophils # 0.2 (0.0-0.6) K/mcL Basophils # 0.0 (0.0-0.2) K/mcL Nucleated RBCs/100 WBC 0.3 H (0) /100 WBC Sodium 134 L (136-145) mEq/L Potassium 5.5 H (3.5-5.1) mEq/L Chloride 103 (98-107) mEq/L Carbon Dioxide 25 (23-29) mEq/L BUN 87 H (8-23) mg/dL Creatinine 6.23 H (0.60-1.20) mg/dL Est GFR ( Amer) 8 L (> 60) Est GFR (Non-Af Amer) 6 L (> 60) BUN/Creatinine Ratio 14 (6-26) Glucose 82 (70-105) mg/dL Calculated Osmolality 304 H (280-300) Calcium 7.6 L (8.6-10.3) mg/dL Phosphorus 5.5 H (2.7-4.5) mg/dL Magnesium 4.3 H (1.6-2.6) mg/dL Total Bilirubin 0.3 (0.3-1.0) mg/dL Direct Bilirubin 0.1 (0.0-0.2) mg/dL Indirect Bilirubin 0.2 (0.0-1.2) mg/dL AST 10 L (13-39) Units/L ALT 4 L (7-52) Units/L Alkaline Phosphatase 107 H (34-104) Units/L Serum Total Protein 6.2 L (6.4-8.9) g/dL Albumin 2.5 L (3.5-5.7) g/dL Globulin 3.7 H (2.4-3.5) g/dL Albumin/Globulin Ratio 0.7 L (1.1-2.2) Urine Color Yellow (Yellow) Urine Clarity Cloudy A (Clear) Urine pH 5.0 (5.0-8.0) pH Units Ur Specific [place] 1.020 (1.010-1.025) Urine Protein Trace (Neg-Trace) mg/dL Urine Glucose (UA) Normal (Normal) mg/dL Urine Ketones Negative (Negative) mg/dL Urine Blood Trace-intact H (Negative) Urine Nitrite Negative (Negative) Urine Bilirubin Negative (Negative) Urine Urobilinogen Normal (Normal) mg/dL Ur Leukocyte Esterase Large H (Negative) Urine Microscopic RBC 5-15 H (0-3) per hpf Urine Microscopic WBC 50-100 H (0-3) per hpf Ur Squamous Epith Cells Few (None-Few) per lpf Urine Bacteria Few (None-Few) per hpf Urine Yeast Moderate H (None Seen) per hpf Ur Culture Indicated? YES A (NO) Attestation Statement - Attestation Attestation: I examined this patient and my medical decision-making was reviewed with the Resident Physician. I agree with the documented findings, disposition and treatment plan as described except to the extent set forth below. [id number] time provided Patient arrives with a report of abnormal labs-specifically revealing, creatinine. She denies being in pain and appears in no acute distress. Recent creatinines reviewed by me indicating chronic CKD with most recent creatinine of 6+
[2017-11-15] MEDS ORDERED: 0.9 % Sodium Chloride 1,000 ML IVC ONE (09:12)
[2017-11-15] MEDS ORDERED: 0.9 % Sodium Chloride 500 ML IVC ONE (09:13)
[2017-11-15 09:23] LABS: Basophils % 0.2 %; Eosinophils # 0.2 K/mcL (0.0-0.6); Eosinophils % 1.7 %; Hematocrit 27.3 % (35.3-44.9); Hemoglobin 8.6 g/dL (11.5-15.4); Immature Granulocytes % 0.8 % (0-4); Lymphocytes # 2.5 K/mcL (0.6-4.6); Lymphocytes % 21.2 %; Mean Corpuscular HGB Conc 31.5 g/dL (31.6-35.5); Mean Corpuscular Hemoglobin 32.5 pg (28.0-33.3); Mean Platelet Volume 10.1 fL (9.4-12.4); Monocytes # 1.3 K/mcL (0.0-1.3); Monocytes % 11.1 %; Neutrophils # 7.7 K/mcL (1.6-8.9); Nucleated Red Blood Cells 0.3 /100 WBC (0); Platelet Count 270 K/mcL (140-400); Red Blood Count 2.65 M/mcL (3.82-4.97); Red Cell Distribution Width 18.9 % (11.5-14.5)
--- NOTE | 2017-11-15 09:33 | Emergency Department Note ---
Disposition Clinical Impression: Uremic acidosis Chronic kidney disease Qualifiers: Chronic kidney disease stage: unspecified stage Qualified Code(s): N18.9 - Chronic kidney disease, unspecified Anemia Qualifiers: Anemia type: unspecified type Qualified Code(s): D64.9 - Anemia, unspecified Disposition: Admitted As Inpatient Recheck wound or abnormal lab - General Chief Complaint: ED Recheck/Abnormal Lab/Rx Stated Complaint: abn labs Time Seen by Provider: 11/15/17 08:55 Source: EMS Mode of arrival: EMS Limitations: physical limitation Nursing Notes Reviewed: Yes Vital Signs Reviewed: Yes - History of Present Illness HPI Narrative: 87-year-old female with history of diabetes and hypertension and chronic kidney disease presents for evaluation of worsening kidney disease. Patient chief complaint is abnormal labs. Patient had routine labs done yesterday and was called to present to the emergency department. Patient states that she has been battling a urinary tract infection for the past several months. Patient recently completed a course of Macrobid. Family at bedside states that the patient appears to be somewhat altered over the past several months which they have attributed to her urinary tract infection. Patient states that she continues to urinate. Patient denies any chest pain or short of breath. No nausea or vomiting. Denies any fevers. Patient's review systems otherwise unremarkable. Family states the patient has met with Dr. Rangel, nephrology in the past in preparation for end-stage renal disease. - Related Data Home Medications Medication Instructions Recorded Confirmed Folic Acid 0.4 mg PO DAILY 04/23/17 11/15/17 Lisinopril [Zestril] 40 mg PO DAILY 04/23/17 11/15/17 Lovastatin 10 mg PO DAILY 04/23/17 11/15/17 Metoprolol [Lopressor] 50 mg PO BID 04/23/17 11/15/17 Pioglitazone [Actos] 45 mg PO 0800 04/23/17 11/15/17 Amlodipine Besylate 10 mg PO DAILY 10/13/17 11/15/17 Ascorbate Calcium [Vitamin C] 500 mg PO DAILY 10/13/17 11/15/17 Aspirin [Lo-Dose Aspirin EC] 81 mg PO DAILY 10/13/17 11/15/17 Ca/D3/Mag#11/Zinc/Personnel Officer/Bill/Bor 1 tab PO DAILY 10/13/17 11/15/17 [Caltrate 600+D Plus Tablet] Gabapentin [Neurontin] 600 mg PO BID 10/13/17 11/15/17 Insulin Glargine,Hum.rec.anlog 12 unit SQ DAILY 10/13/17 11/15/17 [Basaglar Joniikpen U-100] Levothyroxine [Synthroid] 75 mcg PO 0630 10/13/17 11/15/17 Multivitamin [Multivitamins] 1 cap PO DAILY 10/13/17 11/15/17 Omeprazole [PriLOSEC] 40 mg PO DAILY 10/13/17 11/15/17 Oxybutynin [Ditropan] 5 mg PO DAILY 10/13/17 11/15/17 hydrALAZINE [HydrALAZINE] 10 mg PO TID 10/13/17 11/15/17 Ondansetron [Zofran] 8 mg PO Q8HR 11/04/17 11/15/17 traZODone [TraZODone] 50 mg PO HS 11/15/17 11/15/17 Previous Rx's Medication Instructions Recorded HYDROcodone/Acet 7.5/325 mg [[place] 1 tab PO Q8H PRN #21 tablet 10/16/17 7.5-325 mg] Polyethylene Glycol 3350 [MiraLAX 1 scoop PO DAILY #510 gm 11/04/17 Powder Bulk 17.9 Oz] Ranitidine HCl [Zantac] 150 mg PO BID #60 tablet 11/04/17 Allergies Allergy/AdvReac Type Severity Reaction Status Date / Time No Known Allergies Allergy Verified 11/15/17 08:54 All systems ED: reviewed and negative except as stated. Constitutional: Reports: as per HPI. Denies: fever Eyes: Reports: as per HPI ENT ED: Reports: as per HPI Cardiovascular: Reports: as per HPI. Denies: chest pain Respiratory: Reports: as per HPI. Denies: cough, dyspnea Gastrointestinal: Reports: as per HPI. Denies: abdominal pain, nausea, vomiting Genitourinary: Reports: as per HPI Musculoskeletal: Reports: as per HPI Integumentary: Reports: as per HPI Neurological: Reports: as per HPI Psychiatric: Reports: as per HPI Endocrine: Reports: as per HPI Hematological/Lymphatic: Reports: as per HPI Allergic/Immunologic: Reports: as per HPI Past Medical History - Past Medical History Medical history: Reports: arthritis, cancer (Multiple myeloma, not on treatment) , diabetes, GERD, hypertension, kidney stones, renal disease, other Surgical history: Reports: cholecystectomy, orthopedic, other (Right great toe amputation), other (Lumbar spinal fusion surgery) Psychiatric history: Reports: no psych history, schizophrenia COOLING TOWER TECHNICIAN history: Reports: no COOLING TOWER TECHNICIAN history - Social History Smoking Status: Never smoker Smokeless Tobacco Status: No Alcohol use: Reports: unknown Drug use: Reports: none Physical Exam - General Limitations: physical limitation General appearance: alert, in no apparent distress - Head Head exam: atraumatic, normocephalic, normal inspection - Eye Eye exam: Present: normal appearance, EOMI - ENT ENT exam: normal exam, mucous membranes moist - Neck Neck exam: Present: normal inspection - Chest Chest inspection: Present: normal inspection, symmetric chest wall rise - Respiratory Respiratory exam: Present: other (Poor inspiration with diminished bibasilar). Absent: respiratory distress - Cardiovascular Cardiovascular exam: Present: regular rate, normal rhythm, normal heart sounds - Abdominal Exam Abdominal exam: Present: soft, Non-Tender. Absent: guarding, rebound - Extremities Exam Extremities exam: Present: normal inspection, pedal edema (Trace bilateral) - Back Exam Back exam: Present: normal inspection - Neurological Exam Neurological exam: Present: alert, oriented X3 - Skin Skin exam: Present: warm, dry, intact, normal color Course Course Narrative: Patient seen and examined. Patient's labs reviewed yesterday. Patient is uremic with worsening CKD. Patient will get repeat labs today. EKG. Patient will likely need admission and nephrology consult. - Consultations Consultation #1: Spoke with nephrology to make them aware that the patient's being admitted the hospital service. Time: 10:19 Vital Signs Temperature 98.2 F 11/15/17 08:59 Pulse Rate 45 11/15/17 08:59 Respiratory Rate 16 11/15/17 08:59 Blood Pressure 121/41 11/15/17 08:59 O2 Sat by Pulse Oximetry 96 11/15/17 08:59 Temperature 98.2 F 11/15/17 08:59 Pulse Rate 45 11/15/17 08:59 Respiratory Rate 16 11/15/17 08:59 Blood Pressure 121/41 11/15/17 08:59 O2 Sat by Pulse Oximetry 97 11/15/17 08:59 Oxygen Delivery Oxygen Delivery Room Air Recheck wound or abnormal lab - Lab Data Lab results reviewed: Yes I reviewed the patient's lab results. Result diagrams: 11/15/17 09:05 11/15/17 09:05 Lab Results 11/15/17 11/15/17 11/15/17 Range/Units 09:05 09:05 10:00 WBC 11.9 H (4.3-11.1) K/mcL RBC 2.65 L (3.82-4.97) M/mcL Hgb 8.6 L (11.5-15.4) g/dL Hct 27.3 L (35.3-44.9) % MCV 103.0 H (83.0-100.0) fL MCH 32.5 (28.0-33.3) pg MCHC 31.5 L (31.6-35.5) g/dL RDW 18.9 H (11.5-14.5) % Plt Count 270 (140-400) K/mcL MPV 10.1 (9.4-12.4) fL Immature Gran % 0.8 (0-4) % Seg Neutrophils % 65.0 % Lymphocytes % 21.2 % Monocytes % 11.1 % Eosinophils % 1.7 % Basophils % 0.2 % Neutrophils # 7.7 (1.6-8.9) K/mcL Lymphocytes # 2.5 (0.6-4.6) K/mcL Monocytes # 1.3 (0.0-1.3) K/mcL Eosinophils # 0.2 (0.0-0.6) K/mcL Basophils # 0.0 (0.0-0.2) K/mcL Nucleated RBCs/100 WBC 0.3 H (0) /100 WBC Sodium 134 L (136-145) mEq/L Potassium 5.5 H (3.5-5.1) mEq/L Chloride 103 (98-107) mEq/L Carbon Dioxide 25 (23-29) mEq/L BUN 87 H (8-23) mg/dL Creatinine 6.23 H (0.60-1.20) mg/dL Est GFR ( Amer) 8 L (> 60) Est GFR (Non-Af Amer) 6 L (> 60) BUN/Creatinine Ratio 14 (6-26) Glucose 82 (70-105) mg/dL Calculated Osmolality 304 H (280-300) Calcium 7.6 L (8.6-10.3) mg/dL Phosphorus 5.5 H (2.7-4.5) mg/dL Magnesium 4.3 H (1.6-2.6) mg/dL Total Bilirubin 0.3 (0.3-1.0) mg/dL Direct Bilirubin 0.1 (0.0-0.2) mg/dL Indirect Bilirubin 0.2 (0.0-1.2) mg/dL AST 10 L (13-39) Units/L ALT 4 L (7-52) Units/L Alkaline Phosphatase 107 H (34-104) Units/L Serum Total Protein 6.2 L (6.4-8.9) g/dL Albumin 2.5 L (3.5-5.7) g/dL Globulin 3.7 H (2.4-3.5) g/dL Albumin/Globulin Ratio 0.7 L (1.1-2.2) Urine Color Yellow (Yellow) Urine Clarity Cloudy A (Clear) Urine pH 5.0 (5.0-8.0) pH Units Ur Specific [place] 1.020 (1.010-1.025) Urine Protein Trace (Neg-Trace) mg/dL Urine Glucose (UA) Normal (Normal) mg/dL Urine Ketones Negative (Negative) mg/dL Urine Blood Trace-intact H (Negative) Urine Nitrite Negative (Negative) Urine Bilirubin Negative (Negative) Urine Urobilinogen Normal (Normal) mg/dL Ur Leukocyte Esterase Large H (Negative) Urine Microscopic RBC 5-15 H (0-3) per hpf Urine Microscopic WBC 50-100 H (0-3) per hpf Ur Squamous Epith Cells Few (None-Few) per lpf Urine Bacteria Few (None-Few) per hpf Urine Yeast Moderate H (None Seen) per hpf Ur Culture Indicated? YES A (NO) - EKG Data EKG attestation: Yes I reviewed and interpreted this EKG. EKG shows normal: sinus rhythm Rate: normal Rhythm: NSR [place]/QRS: normal T wave inversions noted in: v1 Interpretation: no acute changes, other (QTC of 410) S.B.A.R. - S.B.A.R. Situation: Demographics Background: Presenting Complaint Assessment: Vital Signs, Course and respsone to treatment, Patient/Family Expectation Recommendation: Barrier(s) to disposition, Recommendation based on pending studies, treatments, or consults Marcos Report Given to: Dr. Max Rodríguez Repor Time: 11:01
[2017-11-15 09:39] LABS: Albumin 2.5 g/dL (3.5-5.7); Albumin/Globulin Ratio 0.7 (1.1-2.2); Bilirubin,Direct 0.1 mg/dL (0.0-0.2); Bilirubin,Indirect 0.2 mg/dL (0.0-1.2); Bilirubin,Total 0.3 mg/dL (0.3-1.0); Calcium 7.6 mg/dL (8.6-10.3); Globulin 3.7 g/dL (2.4-3.5); Magnesium 4.3 mg/dL (1.6-2.6); Phosphorous 5.5 mg/dL (2.7-4.5); Potassium 5.5 mEq/L (3.5-5.1); Total Protein 6.2 g/dL (6.4-8.9)
[2017-11-15 10:12] LABS: Bilirubin,Urine Negative (Negative); Blood,Urine Trace-intact (Negative); Clarity,Urine Cloudy (Clear); Color,Urine Yellow (Yellow); Glucose,Urine (UA) Normal (Normal); Ketones,Urine Negative (Negative); Leukocyte Esterase,Urine Large (Negative); Nitrite,Urine Negative (Negative); Protein,Urine Trace mg/dL (Neg-Trace); Urobilinogen,Urine Normal (Normal)
[2017-11-15 10:38] LABS: Squamous Epithelial Cell,Urine Few per lpf (None-Few); WBC,Urine 50-100 per hpf (0-3)
[2017-11-15 10:39] LABS: Bacteria,Urine Few per hpf (None-Few); Yeast,Urine Moderate per hpf (None Seen)
[2017-11-15] MEDS ORDERED: Calcium Gluconate 1,000 MG in D5% in Water 100 ML IVPB ONE (11:04)
[2017-11-15] MEDS ORDERED: *HR* HYDROcodone/Acet 5/325 mg TABLET PO PRN (11:09)
--- NOTE | 2017-11-15 11:13 | Nephrology Consult Note ---
Date of Encounter: 11/15/17 Time of Encounter: 11:12 Assessment and Plan (1) Acute kidney injury superimposed on chronic kidney disease Current Visit: Yes Status: Acute Patient with CRISTINE on CKD that is likely related to intravascular depletion. Patient with decreased oral intake, but does have lower extremity edema in the context of low oncotic pressure. I agree with gentle iv fluids to see if her renal function recovers. Will check urine sodium. Avoid nephrotoxins. Adjust medications for renal function. No acute need for renal replacement therapy. (2) Anemia Current Visit: Yes Status: Chronic Monitor hemoglobin Will check iron stores. May need DONNELL. Most recent vitamin B12 and folate are replete. Qualifiers: Anemia type: unspecified type Qualified Code(s): D64.9 - Anemia, unspecified (3) Essential hypertension Current Visit: No Status: Chronic Titrate antihypertensive mediations as needed. Hold nephrotoxins. (4) Lower extremity edema Current Visit: No Status: Acute Start diuretic once renal function is close to normal. (5) MGUS (monoclonal gammopathy of unknown significance) Current Visit: No Status: Acute Patient with MGUS. Agree with hematology consult. Appreciate input. Check 24 hour urine for monoclonal proteins once renal function improving. (6) Type 2 diabetes mellitus Current Visit: No Status: Chronic Per primary team. Qualifiers: Diabetes mellitus complication status: with kidney complications Diabetes mellitus complication detail: with chronic kidney disease Diabetes mellitus terminal operator insulin use: with fdc use Chronic kidney disease stage: stage 3 (moderate) Qualified Code(s): E11.22 - Type 2 diabetes mellitus with diabetic chronic kidney disease; N18.3 - Chronic kidney disease, stage 3 ( moderate); N18.3 - Chronic kidney disease, stage 3 (moderate); Z79.4 - senior care (current) use of insulin; Z79.4 - senior care (current) use of insulin; Z79.4 - terminal operator (current) use of insulin; Z79.4 - terminal operator (current) use of insulin (7) UTI (urinary tract infection) Current Visit: No Status: Acute Patient's daughter describes recurrent UTIs since this summer. Await culture data to see if UTI has recurred. Qualifiers: Urinary tract infection type: site unspecified Hematuria presence: without hematuria Qualified Code(s): N39.0 - Urinary tract infection, site not specified (8) Hyperkalemia Current Visit: Yes Status: Acute Mild. Medically manage. History of Present Illness - Reason for Consult Consult date: 11/15/17 Acute Kidney Injury, Chronic Kidney Disease - Chief Complaint CRISTINE on CKD - History of Present Illness Ms Beaulieu is an 87 yo woman with a history of CKD managed by Dr. Pete of [facility] who presents secondary to acute kidney injury on chronic kidney disease. Her daughter is at her beside and provides most of the history. According to the daughter the patient has had a persistent UTI since this summer that has been associated with general decline in the patient's health. The patient suffered a fall with a hip and arm fracture approximately one month ago. Since then she has had further decline in functional status with decreased oral intake with no abdominal pain, nausea or vomiting. Three days prior to admission she experienced what the daughter described as a "diabetic stupor" which resolved with glucose administration. Subsequent labs revealed acute kidney injury and the patient was subsequently brought to the ER. At the time of my evaluation the patient denies chest pain, shortness of breath or other new problems. The daughter reports that the patient has had occasional hallucinations. Past Med Surg Social Fam HX - Past Medical History Medical history: arthritis, cancer (Multiple myeloma, not on treatment), diabetes, GERD, hypertension, kidney stones, renal disease, other Psychiatric history: no psych history, schizophrenia - Past Surgical History Surgical History: cholecystectomy, orthopedic, other (Right great toe amputation ), other (Lumbar spinal fusion surgery) - Social History Smoking Status: Never smoker Smokeless Tobacco Status: No Alcohol use: unknown Drug use: none - Family History Brother Living Status: Still Living Hx Family Cancer: Yes (colon) Medications and Allergies Folic Acid 0.4 mg PO DAILY 04/23/17 [History] Lisinopril [Zestril] 40 mg PO DAILY 04/23/17 [History] Lovastatin 10 mg PO DAILY 04/23/17 [History] Metoprolol [Lopressor] 50 mg PO BID 04/23/17 [History] Pioglitazone [Actos] 45 mg PO 0800 04/23/17 [History] Amlodipine Besylate 10 mg PO DAILY 10/13/17 [History] Ascorbate Calcium [Vitamin C] 500 mg PO DAILY 10/13/17 [History] Aspirin [Lo-Dose Aspirin EC] 81 mg PO DAILY 10/13/17 [History] Ca/D3/Mag#11/Zinc/Parking Worker/Bill/Bor [Caltrate 600+D Plus Tablet] 1 tab PO DAILY 10/13 [History] Gabapentin [Neurontin] 600 mg PO BID 10/13/17 [History] Insulin Glargine,Hum.rec.anlog [Basaglar Kwikpen U-100] 12 unit SQ DAILY [History] Levothyroxine [Synthroid] 75 mcg PO 0630 10/13/17 [History] Multivitamin [Multivitamins] 1 cap PO DAILY 10/13/17 [History] Omeprazole [PriLOSEC] 40 mg PO DAILY 10/13/17 [History] Oxybutynin [Ditropan] 5 mg PO DAILY 10/13/17 [History] hydrALAZINE [HydrALAZINE] 10 mg PO TID 10/13/17 [History] HYDROcodone/Acet 7.5/325 mg [[place] 7.5-325 mg] 1 tab PO Q8H PRN #21 tablet 10/16 [Rx] Ondansetron [Zofran] 8 mg PO Q8HR 11/04/17 [History] Polyethylene Glycol 3350 [MiraLAX Powder Bulk 17.9 Oz] 1 scoop PO DAILY #510 gm 11/04/17 [Rx] Ranitidine HCl [Zantac] 150 mg PO BID #60 tablet 11/04/17 [Rx] traZODone [TraZODone] 50 mg PO HS 11/15/17 [History] 3 Allergy/AdvReac Type Severity Reaction Status Date / Time No Known Allergies Allergy Verified 11/15/17 08:54 Review of Systems All Systems: reviewed and no additional remarkable complaints except as stated ( as documented in the HPI.) Exam - Vital Signs Vital signs: Initial Vital Signs Temp Pulse Resp BP Pulse Ox 98.2 F 45 16 121/41 96 11/15/17 08:59 11/15/17 08:59 11/15/17 08:59 11/15/17 08:59 11/15/17 08:59 - General Appearance General appearance: well-developed, well-nourished EENT: ATNC Neck: supple Respiratory: clear Cardiology: edema (2+ edema bilateral lower extremities. ), regular rate, regular rhythm Gastrointestinal: no tenderness Integumentary: warm and dry Additional Comments: Alert. Responds appropriately to questions. Musculoskeletal: no cyanosis Psychiatric: mood/affect appropriate Results - Lab Results 11/15/17 09:05 11/15/17 13:53 Most recent lab results Calcium 7.6 mg/dL (8.6-10.3) L 11/15/17 09:05 Phosphorus 5.5 mg/dL (2.7-4.5) H 11/15/17 09:05 Magnesium 4.3 mg/dL (1.6-2.6) H 11/15/17 09:05 Consult Discharge Plan - Plan Referrals: Oralia Knowles, DIGITAL MANAGER [Primary Care Provider] -
[2017-11-15] MEDS ORDERED: Dextrose Gel 15 GM/37.5 ML TUBE PO PRN ×2 (11:19)
[2017-11-15] MEDS ORDERED: *HR* Dextrose 50 % in Water (Syg) 50 ML SYRINGE IVP PRN (11:19)
[2017-11-15] MEDS ORDERED: D5% in Water 1,000 ML IVC PRN (11:19)
--- NOTE | 2017-11-15 11:21 | Internal Med History&Physical ---
Date of Encounter: 11/15/17 Time of Encounter: 11:20 Assessment and Plan (1) Acute kidney injury superimposed on chronic kidney disease Current visit: Yes Status: Acute Possibilities for this acute kidney injury include recurrent urinary tract infection which may have contributed to nausea and decrease PO intake, hypotension due to infection, or interstitial nephritis due to antibiotics. Patient received 1.5 L of fluid in the emergency room. Continue normal saline 100 mls an hour. I will hold all blood pressure medications to improve renal perfusion as her blood pressure is toward the lower side. Nichols catheter will be placed and will follow urine output hourly. Watch for signs of overload during fluid resuscitation. Check echocardiogram to evaluate LV function. Patient is hyperkalemia this will be corrected and rechecked. Check CPK to rule out rhabdomyolysis (2) UTI (urinary tract infection) Current visit: No Status: Acute According to prior culture will give the patient ceftriaxone 1 g daily. Check urine culture. Qualifiers: Urinary tract infection type: site unspecified Hematuria presence: without hematuria Qualified Code(s): N39.0 - Urinary tract infection, site not specified (3) Hypothyroidism Current visit: No Status: Chronic Continue levothyroxine. Check TSH and free T4 in the morning Qualifiers: Hypothyroidism type: unspecified Qualified Code(s): E03.9 - Hypothyroidism , unspecified (4) Multiple myeloma Current visit: No Status: Chronic We will discuss with nephrology regarding benefit from steroids in this acute setting. Qualifiers: Multiple myeloma remission status: unspecified Qualified Code(s): C90.00 - Multiple myeloma not having achieved remission (5) Type 2 diabetes mellitus Current visit: No Status: Chronic Patient has been having hypoglycemic events likely due to decrease insulin clearance with worsening kidney functions in addition to infection (UTI). We will keep an sliding scale insulin Q6 hours. Qualifiers: Diabetes mellitus complication status: with kidney complications Diabetes mellitus complication detail: with chronic kidney disease Diabetes mellitus prison insulin use: with prison use Chronic kidney disease stage: stage 3 (moderate) Qualified Code(s): E11.22 - Type 2 diabetes mellitus with diabetic chronic kidney disease; N18.3 - Chronic kidney disease, stage 3 ( moderate); N18.3 - Chronic kidney disease, stage 3 (moderate); Z79.4 - senior living (current) use of insulin; Z79.4 - director long term care (current) use of insulin; Z79.4 - director long term care (current) use of insulin; Z79.4 - senior living (current) use of insulin (6) Full code status Current visit: Yes Status: Acute Internal Medicine - H&P: HPI Chief complaint: abnormal labs History of present illness: Ms. 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 Patient has actually seen her physician yesterday to follow up after she had sustained a hypoglycemic event on Saturday 3 days ago and paramedics gave her dextrose with improvement of her level of alertness and did not come to emergency room then. Patient was found to have abnormalities in her kidney functions that worsened compared to baseline so sent to the emergency room. Patient was found to have a creatinine of 6.23 which is significantly elevated from her baseline creatinine level which is usually runs between 1 and 2. Patient mentioned that she has had recurrent urinary tract infections recently that was being treated with nitrofurantoin. However this was not accompanied by any improvement in her symptoms and her daughter felt that they are in remain cloudy and did not feel that her infection was treated. She does not recall receiving any other antibiotics other than nitrofurantoin. Patient has also not been drinking enough water recently due to declining appetite. Patient is also on lisinopril 40 mg daily and other multiple blood pressure lowering medications. Patient denies taking any nonsteroidal anti-inflammatory drugs. Patient denies any recent falls other than the fall that she sustained causing her hip and shoulder fracture over a month ago. Past Med Surg Social Fam HX - Past Medical History Medical history: arthritis, cancer (Multiple myeloma, not on treatment), diabetes, GERD, hypertension, kidney stones, renal disease, other Psychiatric history: no psych history, schizophrenia - Past Surgical History Surgical History: cholecystectomy, orthopedic, other (Right great toe amputation ), other (Lumbar spinal fusion surgery) - Social History Smoking Status: Never smoker Smokeless Tobacco Status: No Alcohol use: unknown Drug use: none - Family History Brother Living Status: Still Living Hx Family Cancer: Yes (colon) Internal Medicine - H&P: Meds Folic Acid 0.4 mg PO DAILY 04/23/17 [History] Lisinopril [Zestril] 40 mg PO DAILY 04/23/17 [History] Lovastatin 10 mg PO DAILY 04/23/17 [History] Metoprolol [Lopressor] 50 mg PO BID 04/23/17 [History] Pioglitazone [Actos] 45 mg PO 0800 04/23/17 [History] Amlodipine Besylate 10 mg PO DAILY 10/13/17 [History] Ascorbate Calcium [Vitamin C] 500 mg PO DAILY 10/13/17 [History] Aspirin [Lo-Dose Aspirin EC] 81 mg PO DAILY 10/13/17 [History] Ca/D3/Mag#11/Zinc/Graphics Software Engineer/Bill/Bor [Caltrate 600+D Plus Tablet] 1 tab PO DAILY 10/13 [History] Gabapentin [Neurontin] 600 mg PO BID 10/13/17 [History] Insulin Glargine,Hum.rec.anlog [Basaglar Kwikpen U-100] 12 unit SQ DAILY [History] Levothyroxine [Synthroid] 75 mcg PO 0630 10/13/17 [History] Multivitamin [Multivitamins] 1 cap PO DAILY 10/13/17 [History] Omeprazole [PriLOSEC] 40 mg PO DAILY 10/13/17 [History] Oxybutynin [Ditropan] 5 mg PO DAILY 10/13/17 [History] hydrALAZINE [HydrALAZINE] 10 mg PO TID 10/13/17 [History] HYDROcodone/Acet 7.5/325 mg [[place] 7.5-325 mg] 1 tab PO Q8H PRN #21 tablet 10/16 [Rx] Ondansetron [Zofran] 8 mg PO Q8HR 11/04/17 [History] Polyethylene Glycol 3350 [MiraLAX Powder Bulk 17.9 Oz] 1 scoop PO DAILY #510 gm 11/04/17 [Rx] Ranitidine HCl [Zantac] 150 mg PO BID #60 tablet 11/04/17 [Rx] traZODone [TraZODone] 50 mg PO HS 11/15/17 [History] 3 Allergy/AdvReac Type Severity Reaction Status Date / Time No Known Allergies Allergy Verified 11/15/17 08:54 All Systems PM: A 10-system review of systems was performed and is negative for pertinent findings except as documented above in the HPI. Review of systems: 10 point review of systems is negative except for HPI - Constitutional Vitals: Temp Pulse Resp BP Pulse Ox 98.2 F 45 16 121/41 97 11/15/17 08:59 11/15/17 08:59 11/15/17 08:59 11/15/17 08:59 11/15/17 08:59 Exam: Gen.: patient is lethargic, oriented times 3 not in distress. Cardiac: normal S1 S2 no additional sounds or murmurs. Chest: basal rales Abdomen: soft nontender nondistended normal bowel sounds lower extremity: 1+ swelling neuro: no focal deficit Internal Med - H&P Results - Labs CBC & Chem 7: 11/15/17 09:05 11/15/17 09:05
[2017-11-15] MEDS ORDERED: Insulin LISPRO 300 UNITS/3 ML VIAL SQ SCH (12:00)
[2017-11-15] MEDS: Insulin LISPRO 300 UNITS/3 ML VIAL SQ SCH ×3 (12:28→22:50)
[2017-11-15] MEDS: cefTRIAXone 1,000 MG in Water for inj. (sterile) 20 ML 10 ML IVP SCH (13:47)
[2017-11-15] MEDS: 0.9 % Sodium Chloride 1,000 ML IVC SCH (13:48)
--- NOTE | 2017-11-15 18:15 | Oncology Inp Consult Note ---
Date of Encounter: 11/15/17 Time of Encounter: 17:00 Assessment and Plan (1) Chronic kidney disease Status: Acute Assessment and plan: Acute worsening kidney disease-etiologies reviewed from history, appears to be prerenal, ?contribution by light chains, multiple myeloma not ruled out. Repeat labs, serum calcium normal, steroids 2 doses, assess response. Anemia related to renal insufficiency, multiple myeloma further investigations once acute episode has resolved. Avoid nephrotoxins. Nephrology evaluation recommendations reviewed Status post Aranesp on a regular basis in the outpatient clinic. Transfuse PRBC as necessary. Plan discussed with patient/daughter bed side. Qualifiers: Chronic kidney disease stage: stage 3 (moderate) Qualified Code(s): N18.3 - Chronic kidney disease, stage 3 (moderate) - Data of Consult Requesting Physician: Kadeem Shaw Primary Care Provider: Oralia Knowles CNP - Consult Narrative Reason for consult: myeloma, renal insufficiency History of present illness: Ms. Beaulieu is a 87 year old female with a diagnosis chronic kidney disease stage III anemia, multiple myeloma, 13 every deletion status post bone marrow biopsy in number of 2015, skeletal survey showed lucent lesions in the skull, The Velcade and Decadron in the past. I stated recommendation, further treatments were stopped and she was maintained on Aranesp for her hemoglobin since today with acute worsening of chronic kidney disease. Patient had elevated Lambda light chains in number of 2017. Plan was to reconsider Velcade if there is worsening off myeloma. Per patient's daughter she has occasional episodes of confusion. She denies any diarrhea episodes, history of constipation for which she had taken laxatives 2 weeks ago. Kidney infection and abx. Past Med Surg Social Fam HX - Past Medical History Medical history: arthritis, cancer (Multiple myeloma, not on treatment), diabetes, GERD, hypertension, kidney stones, renal disease, other Psychiatric history: no psych history, schizophrenia - Past Surgical History Surgical History: cholecystectomy, orthopedic, other (Right great toe amputation ), other (Lumbar spinal fusion surgery) - Social History Smoking Status: Never smoker Smokeless Tobacco Status: No Alcohol use: unknown Drug use: none - Family History Brother Living Status: Still Living Hx Family Cancer: Yes (colon) Medications and Allergies Folic Acid 0.4 mg PO DAILY 04/23/17 [History] Lisinopril [Zestril] 40 mg PO DAILY 04/23/17 [History] Lovastatin 10 mg PO DAILY 04/23/17 [History] Metoprolol [Lopressor] 50 mg PO BID 04/23/17 [History] Pioglitazone [Actos] 45 mg PO 0800 04/23/17 [History] Amlodipine Besylate 10 mg PO DAILY 10/13/17 [History] Ascorbate Calcium [Vitamin C] 500 mg PO DAILY 10/13/17 [History] Aspirin [Lo-Dose Aspirin EC] 81 mg PO DAILY 10/13/17 [History] Ca/D3/Mag#11/Zinc/Final Inspector Balance Wheel/Bill/Bor [Caltrate 600+D Plus Tablet] 1 tab PO DAILY 10/13 [History] Gabapentin [Neurontin] 600 mg PO BID 10/13/17 [History] Insulin Glargine,Hum.rec.anlog [Basaglar Kwikpen U-100] 12 unit SQ DAILY [History] Levothyroxine [Synthroid] 75 mcg PO 0630 10/13/17 [History] Multivitamin [Multivitamins] 1 cap PO DAILY 10/13/17 [History] Omeprazole [PriLOSEC] 40 mg PO DAILY 10/13/17 [History] Oxybutynin [Ditropan] 5 mg PO DAILY 10/13/17 [History] hydrALAZINE [HydrALAZINE] 10 mg PO TID 10/13/17 [History] HYDROcodone/Acet 7.5/325 mg [[place] 7.5-325 mg] 1 tab PO Q8H PRN #21 tablet 10/16 [Rx] Ondansetron [Zofran] 8 mg PO Q8HR 11/04/17 [History] Polyethylene Glycol 3350 [MiraLAX Powder Bulk 17.9 Oz] 1 scoop PO DAILY #510 gm 11/04/17 [Rx] Ranitidine HCl [Zantac] 150 mg PO BID #60 tablet 11/04/17 [Rx] traZODone [TraZODone] 50 mg PO HS 11/15/17 [History] 3 Allergy/AdvReac Type Severity Reaction Status Date / Time No Known Allergies Allergy Verified 11/15/17 08:54 Review of systems: as in HPI Oncology - Exam - Constitutional Vitals: Temp Pulse Resp BP Pulse Ox 98.7 F 70 17 136/56 92 12/22/17 18:06 11/15/17 18:06 11/15/17 18:06 11/15/17 18:06 11/15/17 18:06 General appearance: average body habitus - Head Head exam: Present: atraumatic - Eye Eye exam: Present: sclera anicteric - ENT ENT exam: Present: mucous membranes moist - Respiratory Respiratory exam: Present: CTAB - Cardiovascular Cardiovascular exam: Present: +S1, +S2 - GI/Abdominal GI/Abdominal exam: Present: normal bowel sounds, soft - Extremities Exam Additional comments: rt upper ext braces. Micha pedal edema - Neurological Exam Neurological exam: Present: alert, CN II-XII intact, oriented X3 - Psychiatric Psychiatric exam: Present: normal mood Oncology - Results Labs: [facility] 11/15/17 13:53 Potassium 5.2 H Consult Discharge Plan - Plan Referrals: Oralia Knowles, [employer] [Primary Care Provider] -
[2017-11-15] MEDS: traZODone 50 MG TABLET PO SCH (21:45)
[2017-11-16] MEDS ORDERED: Haloperidol Lactate 5 MG/ML VIAL IM ONE (01:45)
[2017-11-16 03:21] LABS: Basophils % 0.3 %; Eosinophils # 0.1 K/mcL (0.0-0.6); Eosinophils % 0.8 %; Hematocrit 25.4 % (35.3-44.9); Hemoglobin 7.9 g/dL (11.5-15.4); Immature Granulocytes % 0.9 % (0-4); Lymphocytes # 2.2 K/mcL (0.6-4.6); Lymphocytes % 18.3 %; Mean Corpuscular HGB Conc 31.1 g/dL (31.6-35.5); Mean Corpuscular Hemoglobin 32.2 pg (28.0-33.3); Mean Corpuscular Volume 103.7 fL (83.0-100.0); Mean Platelet Volume 10.5 fL (9.4-12.4); Monocytes # 1.2 K/mcL (0.0-1.3); Monocytes % 9.9 %; Neutrophils # 8.4 K/mcL (1.6-8.9); Nucleated Red Blood Cells 0.2 /100 WBC (0); Platelet Count 253 K/mcL (140-400); Red Blood Count 2.45 M/mcL (3.82-4.97); Red Cell Distribution Width 19.5 % (11.5-14.5); Segmented Neutrophils % 69.8 %
[2017-11-16 03:25] LABS: Bilirubin,Urine Negative (Negative); Blood,Urine Trace (Negative); Clarity,Urine Turbid (Clear); Color,Urine Yellow (Yellow); Glucose,Urine (UA) Normal (Normal); Ketones,Urine Trace mg/dL (Negative); Leukocyte Esterase,Urine Large (Negative); Nitrite,Urine Negative (Negative); Protein,Urine 30 mg/dL (Neg-Trace); Specific Gravity,Urine 1.018 (1.010-1.025); Urobilinogen,Urine Normal (Normal)
[2017-11-16 03:27] LABS: Bacteria,Urine Many per hpf (None-Few); Hyaline Casts,Urine None Seen per lpf (None-Few); Squamous Epithelial Cell,Urine Many per lpf (None-Few); WBC,Urine TNTC per hpf (0-3)
[2017-11-16 03:47] LABS: Calcium 7.5 mg/dL (8.6-10.3); Magnesium 3.7 mg/dL (1.6-2.6); Potassium 5.1 mEq/L (3.5-5.1)
[2017-11-16] MEDS: 0.9 % Sodium Chloride 1,000 ML IVC SCH ×3 (04:08→21:03)
[2017-11-16 04:41] LABS: Thyroid Stimulating Hormone 5.04 mcIU/mL (0.340-5.600)
[2017-11-16 06:58] LABS: % Iron Saturation 19 % (15-50); Iron 37 mcg/dL (50-170); Transferrin 142 mg/dL (203-362)
--- NOTE | 2017-11-16 07:35 | Electrocardiograph Report ---
[place] [id number] Test Date: 2017-11-15 Pat Name: Bev Beaulieu Department: 104 Room: 2A11 Gender: F Maintenance Custodian: CLAUDIO : 1930 Requested By: Clarence Devine Order Number: [id number] Reading MD: Karel Gomez DO Measurements Intervals [place] Rate: 66 P: 34 ID: [id number] QRS: -8 QRSD: 102 T: 29 QT: 396 QTc: 410 Interpretive Statements SINUS RHYTHM LOW QRS VOLTAGE IN EXTREMITY LEADS Electronically Signed On 11-16-2017 7:34:48 EST by Karel Gomez DO
[2017-11-16] MEDS: Aspirin Enteric Coated 81 MG Tablet PO SCH (08:44)
[2017-11-16] MEDS: Folic Acid 1 MG TABLET PO SCH (08:44)
[2017-11-16] MEDS: Insulin LISPRO 300 UNITS/3 ML VIAL SQ SCH ×3 (08:46→17:04)
[2017-11-16] MEDS ORDERED: Dexamethasone 10 MG/ML VIAL IVP SCH (09:00)
[2017-11-16] MEDS ORDERED: Famotidine 20 MG/2 ML VIAL IVP SCH (09:00)
[2017-11-16 11:27] LABS: Sodium, Urine 35.2 mEq/L
[2017-11-16] MEDS: cefTRIAXone 1,000 MG in Water for inj. (sterile) 20 ML 10 ML IVP SCH (12:31)
--- NOTE | 2017-11-16 12:32 | Nephrology Progress Note ---
Date of Encounter: 11/16/17 Time of Encounter: 12:30 - Assessment and Plan (1) Acute kidney injury superimposed on chronic kidney disease Current Visit: Yes Status: Acute Patient with CRISTINE on CKD with a decreasing creatinine. Patient is non oliguric with incomplete Is/Os 11/15/2017. No immediate need for dialysis. Continue gentle fluid until 11/17/2017. Adjust medications for renal function Avoid nephrotoxins. (2) Anemia Current Visit: Yes Status: Chronic No sign of bleeding. Hematology is following. Elevated ferritin and iron saturation of 10%. Transfuse as needed. Qualifiers: Anemia type: unspecified type Qualified Code(s): D64.9 - Anemia, unspecified (3) Essential hypertension Current Visit: No Status: Chronic Blood pressure controlled. Monitor. (4) Lower extremity edema Current Visit: No Status: Acute Patient would benefit from diuresis once CRISTINE has resolved. (5) MGUS (monoclonal gammopathy of unknown significance) Current Visit: No Status: Acute Per hematology. Will need 24 hour urine to quantify monoclonal protein. (6) Type 2 diabetes mellitus Current Visit: No Status: Chronic Per primary team. Qualifiers: Diabetes mellitus complication status: with kidney complications Diabetes mellitus complication detail: with chronic kidney disease Diabetes mellitus termite treater helper insulin use: with termite treater helper use Chronic kidney disease stage: stage 3 (moderate) Qualified Code(s): E11.22 - Type 2 diabetes mellitus with diabetic chronic kidney disease; N18.3 - Chronic kidney disease, stage 3 ( moderate); N18.3 - Chronic kidney disease, stage 3 (moderate); Z79.4 - termite treater helper (current) use of insulin; Z79.4 - termite treater helper (current) use of insulin; Z79.4 - retirement (current) use of insulin; Z79.4 - termite treater helper (current) use of insulin (7) UTI (urinary tract infection) Current Visit: No Status: Acute Patient with recurrent UTI of unclear etiology. Consider urology evaluation if not done as an outpatient. Qualifiers: Urinary tract infection type: site unspecified Hematuria presence: without hematuria Qualified Code(s): N39.0 - Urinary tract infection, site not specified (8) Hyperkalemia Current Visit: Yes Status: Acute Resolved. (9) Fracture of humeral head, right, closed Current Visit: No Status: Acute Per primary team. Agree with PT. Qualifiers: Encounter type: initial encounter Qualified Code(s): S42.291A - Other displaced fracture of upper end of right humerus, initial encounter for closed fracture Subjective Principal diagnosis: CRISTINE/CKD Interval history: Patient was seen and evaluated. She feels much better. Her daughter is at her bedside. She is eating. She denies any other complaint. Objective - Vital Signs Vital signs: Vital Signs Temp Pulse Resp BP Pulse Ox 11/16/17 07:33 97.9 F 74 14 131/61 96 11/16/17 04:19 98.5 F 75 16 135/57 96 11/15/17 23:49 98.0 F 70 16 125/56 94 11/15/17 19:19 98.2 F 68 16 142/57 92 11/15/17 18:06 98.7 F 70 17 136/56 92 Intake and Output 11/15/17 11/16/17 11/16/17 23:59 07:59 15:59 Intake Total 600 / 600 400 / 400 360 / 360 Output Total 400 / 400 350 / 350 Balance 600 / 600 0 / 0 10 / 10 Intake: IV Fluids 600 / 600 400 / 400 0.9 % Sodium Chloride 1,000 ML 600 / 600 400 / 400 @ 100 mls/hr IVC .Q10H [facility] Rx#: [id number] Oral 360 / 360 Output: Urine 400 / 400 100 / 100 Catheter 250 / 250 Other: Meal Breakfast Percent of Meal Consumed 60% Blood Glucose* 161 186 190 - General Appearance General appearance: Present: well-developed, well-nourished EENT: Present: ATNC Neck: Present: supple Respiratory: Present: course breath sounds Cardiology: Present: edema ( 2+ bilateral lower extremity edema), regular rate Integumentary: Present: warm and dry Additional Comments: Alert Musculoskeletal: Present: no cyanosis Psychiatric: Present: mood/affect appropriate - Lab 11/16/17 02:40 11/16/17 02:40 Most recent lab results Calcium 7.5 mg/dL (8.6-10.3) L 11/16/17 02:40 Phosphorus 5.5 mg/dL (2.7-4.5) H 11/15/17 09:05 Magnesium 3.7 mg/dL (1.6-2.6) H 11/16/17 02:40 Urine Creatinine 100 mg/dL 11/16/17 10:50 Urine Sodium 35.2 mEq/L 11/16/17 10:50 Consult Discharge Plan - Plan Referrals: Oralia Knowles, SHRAVAN [Primary Care Provider] -
--- NOTE | 2017-11-16 16:40 | Internal Med Progress Note ---
Date of Encounter: 11/16/17 Time of Encounter: 16:38 - Assessment and plan (1) Acute kidney injury superimposed on chronic kidney disease Current Visit: Yes Status: Acute Assessment and plan: Patient has only minimal improvement in kidney functions with hydration. Continue hydration one more day. Nichols catheter will be placed for accurate measurement of urine output. Case has been discussed with stator winder as well as oncologist. She will be started today on steroids given her underlying multiple myeloma in case that is contributing to worsening kidney functions. (2) UTI (urinary tract infection) Current Visit: No Status: Acute Assessment and plan: Continue ceftriaxone. Await urine and blood cultures. Qualifiers: Urinary tract infection type: site unspecified Hematuria presence: without hematuria Qualified Code(s): N39.0 - Urinary tract infection, site not specified (3) Hypothyroidism Current Visit: No Status: Chronic Assessment and plan: Continue levothyroxine. TSH normal Qualifiers: Hypothyroidism type: unspecified Qualified Code(s): E03.9 - Hypothyroidism , unspecified (4) Multiple myeloma Current Visit: No Status: Chronic Assessment and plan: Appreciating ecology input. Patient has been started on steroids in case multiple myeLoma is part to contributing to worsening kidney functions. Qualifiers: Multiple myeloma remission status: unspecified Qualified Code(s): C90.00 - Multiple myeloma not having achieved remission (5) Type 2 diabetes mellitus Current Visit: No Status: Chronic Assessment and plan: Sliding scale insulin. Qualifiers: Diabetes mellitus complication status: with kidney complications Diabetes mellitus complication detail: with chronic kidney disease Diabetes mellitus fpc insulin use: with fpc use Chronic kidney disease stage: stage 3 (moderate) Qualified Code(s): E11.22 - Type 2 diabetes mellitus with diabetic chronic kidney disease; N18.3 - Chronic kidney disease, stage 3 ( moderate); N18.3 - Chronic kidney disease, stage 3 (moderate); Z79.4 - skilled nursing (current) use of insulin; Z79.4 - skilled nursing (current) use of insulin; Z79.4 - skilled nursing (current) use of insulin; Z79.4 - skilled nursing (current) use of insulin (6) Full code status Current Visit: Yes Status: Acute - Subjective Interval history: This unexamined. Intermittent confusion. Incomplete intake and output recording output is approximately 400 mls. No significant improvement in kidney functions with hydration. Very weak, needs assistance to get up to commode. - Constitutional Vitals: Temp Pulse Resp BP Pulse Ox 98.6 F 76 16 174/61 94 11/16/17 16:14 11/16/17 16:14 11/16/17 16:14 11/16/17 16:14 11/16/17 16:14 Exam: Gen.: patient is lethargic, intermittent confusion, not in distress. Cardiac: normal S1 S2 no additional sounds chest: basal crackles abdomen: soft nontender nondistended normal bowel sounds Neuro: no focal deficits LE: 1+ swelling Internal Medicine: Result - Labs CBC & Chem 7: 11/16/17 02:40 11/16/17 02:40 Labs: Short CBC 11/16/17 Range/Units 02:40 WBC 12.0 H (4.3-11.1) K/mcL Hgb 7.9 L (11.5-15.4) g/dL Hct 25.4 L (35.3-44.9) % Plt Count 253 (140-400) K/mcL Neutrophils # 8.4 (1.6-8.9) K/mcL BMP 11/16/17 02:40 Sodium 135 L Potassium 5.1 Chloride 102 Carbon Dioxide 22 L BUN 81 H Creatinine 5.97 H Glucose 166 H Calcium 7.5 L Urine 11/16/17 Range/Units 03:15 Urine Color Yellow (Yellow) Urine Clarity Turbid A (Clear) Urine pH 6.0 (5.0-8.0) pH Units Ur Specific [place] 1.018 (1.010-1.025) Urine Protein 30 H (Neg-Trace) mg/dL Urine Glucose (UA) Normal (Normal) mg/dL - Impressions Impressions Echocardiogram 11/15/17 11:01 Impressions: LVEF 65%. Mild left ventricular diastolic dysfunction. Normal right ventricular structure and function. Mild mitral regurgitation. Mild tricuspid regurgitation. Borderline pulmonary hypertension. No evidence for PFO with saline contrast injection. Left Ventricular Wall Motion: Rest Echo Findings All wall segments showed normal motion. Findings: Study Quality * Technically adequate exam. ECG Findings * Normal sinus rhythm. Left Ventricle * LVEF 65%. * Normal LV chamber size, wall thickness and function. * Mild left ventricular diastolic dysfunction. Right Ventricle * Normal right ventricular structure and function. Left Atrium * Severely dilated left atrium. Right Atrium * Normal right atrial size. Aortic Valve * No aortic regurgitation. * Trileaflet aortic valve. * No aortic stenosis. Mitral Valve * Normal mitral valve structure. * No mitral stenosis. * Mild mitral annular calcification * Mild mitral regurgitation. Tricuspid Valve * Normal tricuspid valve structure. * Mild tricuspid regurgitation. * Estimated RA pressure is 3 mmHg. * Estimated RVSP is 36 mmHg. * Borderline pulmonary hypertension. Pulmonic Valve * Pulmonic valve is not well visualized. * No pulmonic stenosis. * Trace pulmonic regurgitation. Pulmonary Artery * Pulmonary artery not well visualized. Aorta * Normally sized aortic root. Pericardium * There is no pericardial effusion present. Pleural Effusion * Moderate pleural effusion. Interatrial Septum * No evidence of PFO by color Doppler. * No evidence of PFO with agitated saline contrast. IVC * Normal IVC dimensions and inspiratory collapse. ADDENDUM: 11/16/17 1321 Impressions: LVEF 65%. Mild left ventricular diastolic dysfunction. Normal right ventricular structure and function. Mild mitral regurgitation. Mild tricuspid regurgitation. Borderline pulmonary hypertension. No evidence for PFO with saline contrast injection. A pleural effusion is present. Left Ventricular Wall Motion: Rest Echo Findings All wall segments showed normal motion. Findings: Study Quality * Technically adequate exam. ECG Findings * Normal sinus rhythm. Left Ventricle * LVEF 65%. * Normal LV chamber size, wall thickness and function. * Mild left ventricular diastolic dysfunction. Right Ventricle * Normal right ventricular structure and function. Left Atrium * Severely dilated left atrium. Right Atrium * Normal right atrial size. Aortic Valve * No aortic regurgitation. * Trileaflet aortic valve. * No aortic stenosis. Mitral Valve * Normal mitral valve structure. * No mitral stenosis. * Mild mitral annular calcification * Mild mitral regurgitation. Tricuspid Valve * Normal tricuspid valve structure. * Mild tricuspid regurgitation. * Estimated RA pressure is 3 mmHg. * Estimated RVSP is 36 mmHg. * Borderline pulmonary hypertension. Pulmonic Valve * Pulmonic valve is not well visualized. * No pulmonic stenosis. * Trace pulmonic regurgitation. Pulmonary Artery * Pulmonary artery not well visualized. Aorta * Normally sized aortic root. Pericardium * There is no pericardial effusion present. Pleural Effusion * Moderate pleural effusion. Interatrial Septum * No evidence of PFO by color Doppler. * No evidence of PFO with agitated saline contrast. IVC * Normal IVC dimensions and inspiratory collapse. Consult Discharge Plan - Plan Referrals: Oralia Knowles, SECURITY TECHNICIAN [Primary Care Provider] -
[2017-11-16] MEDS ORDERED: Insulin LISPRO 300 UNITS/3 ML VIAL SQ SCH (21:00)
[2017-11-16] MEDS: traZODone 50 MG TABLET PO SCH (21:03)
[2017-11-16] MEDS ORDERED: *HR* LORazepam 2 MG/ML VIAL IVP PRN (21:24)
[2017-11-17 04:02] LABS: Hematocrit 26.3 % (35.3-44.9); Hemoglobin 8.3 g/dL (11.5-15.4); Lymphocytes # 1.3 K/mcL (0.6-4.6); Lymphocytes % 12.2 %; Mean Corpuscular HGB Conc 31.6 g/dL (31.6-35.5); Mean Corpuscular Hemoglobin 32.5 pg (28.0-33.3); Mean Corpuscular Volume 103.1 fL (83.0-100.0); Mean Platelet Volume 10.7 fL (9.4-12.4); Monocytes # 0.5 K/mcL (0.0-1.3); Monocytes % 4.8 %; Neutrophils # 8.4 K/mcL (1.6-8.9); Nucleated Red Blood Cells 0.2 /100 WBC (0); Platelet Count 262 K/mcL (140-400); Red Blood Count 2.55 M/mcL (3.82-4.97); Red Cell Distribution Width 19.9 % (11.5-14.5)
[2017-11-17 04:16] LABS: Calcium 7.5 mg/dL (8.6-10.3); Magnesium 3.6 mg/dL (1.6-2.6); Potassium 5.4 mEq/L (3.5-5.1)
[2017-11-17] MEDS ORDERED: Levalbuterol Neb 1.25 MG/3 ML IH PRN (05:09)
[2017-11-17 09:48] LABS: ABG Base Excess -3 mEq/L (-2 to 3); ABG HCO3 22 mEq/L (21-27); ABG Oxygen Saturation 98 % (95-98); ABG PCO2 36 mmHg (35-45); ABG PO2 105 mmHg (85-104); ABG TCO2 23 mEq/L (20-26); Blood Gas Modality NCPAP
[2017-11-17] MEDS ORDERED: Vancomycin 1,000 MG in D5% in Water 250 ML IVPB SCH (10:00)
[2017-11-17] MEDS ORDERED: Piperacillin/Tazobactam 2.25 GM in D5% in Water (Mini-Bag+) 100 ML IVPB SCH (10:00)
--- NOTE | 2017-11-17 10:03 | Nephrology Progress Note ---
Date of Encounter: 11/17/17 Time of Encounter: 09:00 - Assessment and Plan (1) Acute kidney injury superimposed on chronic kidney disease Current Visit: Yes Status: Acute Patient with CRISTINE on CKD with a decreasing creatinine. Patient is non oliguric with incomplete Is/Os 11/15/2017. No immediate need for dialysis. Fluids discontinued. Will medically manage mild hyperkalemia. Adjust medications for renal function Avoid nephrotoxins. Spoke with covering hospitalist. (2) Respiratory failure Current Visit: Yes Status: Acute CXR with multifocal infiltrate. Possible pneumonia, but patient is afebrile with normal WBC. Possible fluid overload/CHF. Supplemental intravenous fluid discontinued. Holding diuresis for now secondary to CRISTINE, but if respiratory status does not improve she may require intermittent diuretics. Qualifiers: Qualified Code(s): J96.90 - Respiratory failure, unspecified, unspecified whether with hypoxia or hypercapnia (3) Anemia Current Visit: Yes Status: Chronic No sign of bleeding. Hematology is following. Elevated ferritin and iron saturation of 19%. Transfuse as needed. Qualifiers: Anemia type: unspecified type Qualified Code(s): D64.9 - Anemia, unspecified (4) Essential hypertension Current Visit: No Status: Chronic Blood pressure controlled. Monitor. Patient's blood pressure trending down. (5) Lower extremity edema Current Visit: No Status: Acute Patient would benefit from diuresis once CRISTINE has resolved. (6) MGUS (monoclonal gammopathy of unknown significance) Current Visit: No Status: Acute Per hematology. Will need 24 hour urine to quantify monoclonal protein. (7) Type 2 diabetes mellitus Current Visit: No Status: Chronic Per primary team. Qualifiers: Diabetes mellitus complication status: with kidney complications Diabetes mellitus complication detail: with chronic kidney disease Diabetes mellitus alf insulin use: with alf use Chronic kidney disease stage: stage 3 (moderate) Qualified Code(s): E11.22 - Type 2 diabetes mellitus with diabetic chronic kidney disease; N18.3 - Chronic kidney disease, stage 3 ( moderate); N18.3 - Chronic kidney disease, stage 3 (moderate); Z79.4 - jail (current) use of insulin; Z79.4 - ocean transportation intermediary (current) use of insulin; Z79.4 - jail (current) use of insulin; Z79.4 - ocean transportation intermediary (current) use of insulin (8) UTI (urinary tract infection) Current Visit: No Status: Acute Patient with recurrent UTI of unclear etiology. Consider urology evaluation if not done as an outpatient. Qualifiers: Urinary tract infection type: site unspecified Hematuria presence: without hematuria Qualified Code(s): N39.0 - Urinary tract infection, site not specified (9) Hyperkalemia Current Visit: Yes Status: Acute Medical management. (10) Fracture of humeral head, right, closed Current Visit: No Status: Acute Per primary team. Agree with PT. Qualifiers: Encounter type: initial encounter Qualified Code(s): S42.291A - Other displaced fracture of upper end of right humerus, initial encounter for closed fracture Subjective Principal diagnosis: CRISTINE/CKD Interval history: Patient was seen and evaluated. Her daughter was at her bedside. Hospitalist was leaving the room at the time of my evaluation. She did worse overnight requiring increased supplemental oxygen. She is more lethargic and complains of dyspnea this am. She denies chest pain. Daughter reports she does occasionally cough with eating. Objective - Vital Signs Vital signs: Vital Signs Temp Pulse Resp BP Pulse Ox 11/16/17 23:34 98.1 F 70 16 106/50 90 11/16/17 19:33 98.4 F 92 16 142/64 90 11/16/17 16:14 98.6 F 76 16 174/61 94 11/16/17 12:55 98.5 F 77 16 131/70 93 Intake and Output 11/16/17 11/17/17 11/17/17 23:59 07:59 15:59 Intake Total 1000 / 1000 Output Total 300 / 300 Balance 1000 / 1000 -300 / -300 Intake: IV Fluids 1000 / 1000 0.9 % Sodium Chloride 1,000 ML 1000 / 1000 @ 100 mls/hr IVC .Q10H [facility] Rx#: [id number] Oral 0 / 0 Output: Catheter 300 / 300 Urethral (Nichols) 300 / 300 Other: Blood Glucose* 272 - General Appearance General appearance: Present: well-developed, well-nourished EENT: Present: ATNC Neck: Present: supple Respiratory: Present: course breath sounds, rhonchi Cardiology: Present: edema, regular rate Integumentary: Present: warm and dry Additional Comments: Alert Psychiatric: Present: mood/affect appropriate, cooperative - Lab 11/17/17 03:43 11/17/17 03:43 Most recent lab results ABG pH 7.40 pH Units (7.32-7.45) 11/17/17 09:42 ABG pCO2 36 mmHg (35-45) 11/17/17 09:42 ABG pO2 105 mmHg (85-104) H 11/17/17 09:42 ABG HCO3 22 mEq/L (21-27) 11/17/17 09:42 ABG O2 Saturation 98 % (95-98) 11/17/17 09:42 Calcium 7.5 mg/dL (8.6-10.3) L 11/17/17 03:43 Phosphorus 5.5 mg/dL (2.7-4.5) H 11/15/17 09:05 Magnesium 3.6 mg/dL (1.6-2.6) H 11/17/17 03:43 Urine Creatinine 100 mg/dL 11/16/17 10:50 Urine Sodium 35.2 mEq/L 11/16/17 10:50 - VTE Documentation of Mechanical Device: Intermittent pneumatic compression device Consult Discharge Plan - Plan Referrals: Oralia Knowles, SENIOR ADMINISTRATIVE SERVICES OFFICER [Primary Care Provider] -
[2017-11-17] MEDS ORDERED: 0.9 % Sodium Chloride 1,000 ML IVC SCH (10:30)
[2017-11-17] MEDS: Folic Acid 1 MG TABLET PO SCH (10:50)
[2017-11-17] MEDS: Aspirin Enteric Coated 81 MG Tablet PO SCH (10:50)
[2017-11-17] MEDS: Levalbuterol Neb 1.25 MG/3 ML IH SCH ×3 (10:50→22:24)
--- NOTE | 2017-11-17 10:50 | Pulmonology Consult Note ---
Date of Encounter: 11/17/17 Time of Encounter: 11:00 Assessment and Plan (1) Acute respiratory failure with hypoxia Current Visit: Yes Status: Acute It is contributed mainly due to fluid overload due to diastolic heart failure and acute on chronic kidney injury . will diurese her as tolerated , will put her CPAP of 8 as blood gas showed acute hypoxemic respiratory failure with no significant hypercarbia . (2) Diastolic heart failure Current Visit: Yes Status: Acute Patient has diastolic dysfunction with giant dilated Left atrium will continue diuresis , will hold off beta blockers consider cardiology consult if she is not getting better. Qualifiers: Heart failure chronicity: acute on chronic Qualified Code(s): I50.33 - Acute on chronic diastolic (congestive) heart failure (3) Pneumonia Current Visit: Yes Status: Acute Doubt she presented with pneumonia , the worsening bilateral airspace disease can be very well due to pulmonary edema agree with broad spectrum antibiotics for now. Qualifiers: Pneumonia type: due to unspecified organism Laterality: unspecified laterality Qualified Code(s): J18.9 - Pneumonia, unspecified organism (4) Goals of care, counseling/discussion Current Visit: Yes Status: Acute Discussed with Patient , Daughter, Brother and Sister-in law regarding the trajectory of her illness if she gets intubated and had CPR according to Daughter patient would not want that ,according to patient wishes code status was changed to DNRCC -DNI , code status was changed . was informed about the change of Code Status. 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 Patient says has increased shortness of breadth , denies any chest pain or tightness , has not much cough and sputum production , denies any fever or chills , denies any nausea or vomitting , no hematemesis and melena , no focal neurological deficit. Past Med Surg Social Fam HX - Past Medical History Medical history: arthritis, cancer (Multiple myeloma, not on treatment), diabetes, GERD, hypertension, kidney stones, renal disease, other Psychiatric history: no psych history, schizophrenia - Past Surgical History Surgical History: cholecystectomy, orthopedic, other (Right great toe amputation ), other (Lumbar spinal fusion surgery) - Social History Smoking Status: Never smoker Smokeless Tobacco Status: No Alcohol use: unknown Drug use: none - Family History Brother Living Status: Still Living Hx Family Cancer: Yes (colon) Medications and Allergies Folic Acid 0.4 mg PO DAILY 04/23/17 [History] Lisinopril [Zestril] 40 mg PO DAILY 04/23/17 [History] Lovastatin 10 mg PO DAILY 04/23/17 [History] Metoprolol [Lopressor] 50 mg PO BID 04/23/17 [History] Pioglitazone [Actos] 45 mg PO 0800 04/23/17 [History] Amlodipine Besylate 10 mg PO DAILY 10/13/17 [History] Ascorbate Calcium [Vitamin C] 500 mg PO DAILY 10/13/17 [History] Aspirin [Lo-Dose Aspirin EC] 81 mg PO DAILY 10/13/17 [History] Ca/D3/Mag#11/Zinc/Linen Worker/Bill/Bor [Caltrate 600+D Plus Tablet] 1 tab PO DAILY 10/13 [History] Gabapentin [Neurontin] 600 mg PO BID 10/13/17 [History] Insulin Glargine,Hum.rec.anlog [Basaglar Kwikpen U-100] 12 unit SQ DAILY [History] Levothyroxine [Synthroid] 75 mcg PO 0630 10/13/17 [History] Multivitamin [Multivitamins] 1 cap PO DAILY 10/13/17 [History] Omeprazole [PriLOSEC] 40 mg PO DAILY 10/13/17 [History] Oxybutynin [Ditropan] 5 mg PO DAILY 10/13/17 [History] hydrALAZINE [HydrALAZINE] 10 mg PO TID 10/13/17 [History] HYDROcodone/Acet 7.5/325 mg [Dequincy 7.5-325 mg] 1 tab PO Q8H PRN #21 tablet 10/16 [Rx] Ondansetron [Zofran] 8 mg PO Q8HR 11/04/17 [History] Polyethylene Glycol 3350 [MiraLAX Powder Bulk 17.9 Oz] 1 scoop PO DAILY #510 gm 11/04/17 [Rx] Ranitidine HCl [Zantac] 150 mg PO BID #60 tablet 11/04/17 [Rx] traZODone [TraZODone] 50 mg PO HS 11/15/17 [History] 3 Allergy/AdvReac Type Severity Reaction Status Date / Time No Known Allergies Allergy Verified 11/15/17 08:54 ROS unobtainable: due to mental status All Systems: A 10-system review of systems was performed and is negative for pertinent findings except as documented above in the HPI. Physical Examination Vital Signs: Vital Signs, Last 4 Hours Temp Pulse Resp BP Pulse Ox 11/17/17 10:28 98.2 F 87 17 110/51 97 General appearance: lethargic Effort: mildly labored Auscultation: bilateral: rhonchi, other (bibasilar crackles ) non-focal exam, other (Patient is oriented times X 2 ) Results - Laboratory Findings CBC and BMP: 11/17/17 03:43 11/17/17 03:43 ABG ABG pH 7.40 pH Units (7.32-7.45) 11/17/17 09:42 ABG pCO2 36 mmHg (35-45) 11/17/17 09:42 ABG pO2 105 mmHg (85-104) H 11/17/17 09:42 ABG O2 Saturation 98 % (95-98) 11/17/17 09:42 Abnormal lab findings: Abnormal lab results RBC 2.55 M/mcL (3.82-4.97) L 11/17/17 03:43 Hgb 8.3 g/dL (11.5-15.4) L 11/17/17 03:43 Hct 26.3 % (35.3-44.9) L 11/17/17 03:43 MCV 103.1 fL (83.0-100.0) H 11/17/17 03:43 RDW 19.9 % (11.5-14.5) H 11/17/17 03:43 Nucleated RBCs/100 WBC 0.2 /100 WBC (0) H 11/17/17 03:43 ABG pO2 105 mmHg (85-104) H 11/17/17 09:42 ABG Base Excess -3 mEq/L (-2 to 3) L 11/17/17 09:42 Potassium 5.4 mEq/L (3.5-5.1) H 11/17/17 03:43 Carbon Dioxide 21 mEq/L (23-29) L 11/17/17 03:43 BUN 73 mg/dL (8-23) H 11/17/17 03:43 Creatinine 5.35 mg/dL (0.60-1.20) H 11/17/17 03:43 Est GFR ( Amer) 9 (> 60) L 11/17/17 03:43 Est GFR (Non-Af Amer) 8 (> 60) L 11/17/17 03:43 Glucose 200 mg/dL (70-105) H 11/17/17 03:43 POC Glucose 192 (58-89) H 11/16/17 16:14 Calculated Osmolality 309 (280-300) H 11/17/17 03:43 Calcium 7.5 mg/dL (8.6-10.3) L 11/17/17 03:43 Phosphorus 5.5 mg/dL (2.7-4.5) H 11/15/17 09:05 Magnesium 3.6 mg/dL (1.6-2.6) H 11/17/17 03:43 Iron 37 mcg/dL (50-170) L 11/16/17 02:40 Transferrin 142 mg/dL (203-362) L 11/16/17 02:40 Ferritin > 1350 ng/ml (10-120) H 11/16/17 02:40 AST 10 Units/L (13-39) L 11/15/17 09:05 ALT 4 Units/L (7-52) L 11/15/17 09:05 Alkaline Phosphatase 107 Units/L (34-104) H 11/15/17 09:05 Serum Total Protein 6.2 g/dL (6.4-8.9) L 11/15/17 09:05 Albumin 2.5 g/dL (3.5-5.7) L 11/15/17 09:05 Globulin 3.7 g/dL (2.4-3.5) H 11/15/17 09:05 Albumin/Globulin Ratio 0.7 (1.1-2.2) L 11/15/17 09:05 Urine Clarity Turbid (Clear) A 11/16/17 03:15 Urine Protein 30 mg/dL (Neg-Trace) H 11/16/17 03:15 Urine Ketones Trace mg/dL (Negative) H 11/16/17 03:15 Urine Blood Trace (Negative) H 11/16/17 03:15 Ur Leukocyte Esterase Large (Negative) H 11/16/17 03:15 Urine Microscopic RBC 5-15 per hpf (0-3) H 11/16/17 03:15 Urine Microscopic WBC TNTC per hpf (0-3) H 11/16/17 03:15 Ur Squamous Epith Cells Many per lpf (None-Few) H 11/16/17 03:15 Urine Bacteria Many per hpf (None-Few) H 11/16/17 03:15 Urine Yeast Moderate per hpf (None Seen) H 11/15/17 10:00 - Clinical Findings Intake & Output: Intake & Output 11/16/17 11/17/17 11/17/17 23:59 07:59 15:59 Intake Total 1000 / 1000 Output Total 300 / 300 Balance 1000 / 1000 -300 / -300 Consult Discharge Plan - Plan Referrals: Oralia Knowles, DIRECTOR OF RETAIL ANALYTICS [Primary Care Provider] -
[2017-11-17] MEDS: Furosemide 40 MG/4 ML VIAL IVP SCH ×2 (11:15→22:40)
[2017-11-17] MEDS ORDERED: Vancomycin 1,000 MG in D5% in Water 250 ML IVPB ONE (12:00)
[2017-11-17] MEDS: Piperacillin/Tazobactam 3.375 GM/200 ML BAG IVPB SCH ×2 (12:42→22:41)
[2017-11-17] MEDS: methylPREDNISolone 125 MG/2 ML VIAL IVP SCH ×3 (12:46→23:09)
[2017-11-17] MEDS: Insulin LISPRO 300 UNITS/3 ML VIAL SQ SCH ×4 (13:19→23:16)
[2017-11-17] MEDS: Levofloxacin 500 MG/100 ML 500 MG/100 ML BAG IVPB SCH (13:31)
--- NOTE | 2017-11-17 14:09 | Internal Med Progress Note ---
Date of Encounter: 11/17/17 Time of Encounter: 14:06 - Assessment and plan (1) Acute kidney injury superimposed on chronic kidney disease Current Visit: Yes Status: Acute Assessment and plan: Patient has only minimal improvement in kidney functions with hydration. Patient is more short of breath with evidence of volume overload and pneumonia. Withhold IV fluids and start IV diuresis. Patient is on steroids given her underlying multiple myeloma in case that is contributing to worsening kidney functions. (2) UTI (urinary tract infection) Current Visit: No Status: Acute Assessment and plan: Patient currently on vancomycin Zosyn on Levaquin for hospital acquired pneumonia. Await urine and blood cultures. Qualifiers: Urinary tract infection type: site unspecified Hematuria presence: without hematuria Qualified Code(s): N39.0 - Urinary tract infection, site not specified (3) Hypothyroidism Current Visit: No Status: Chronic Assessment and plan: Continue levothyroxine. TSH normal Qualifiers: Hypothyroidism type: unspecified Qualified Code(s): E03.9 - Hypothyroidism , unspecified (4) Multiple myeloma Current Visit: No Status: Chronic Assessment and plan: Appreciating ecology input. Patient has been started on steroids in case multiple myeLoma is part to contributing to worsening kidney functions. Qualifiers: Multiple myeloma remission status: unspecified Qualified Code(s): C90.00 - Multiple myeloma not having achieved remission (5) Type 2 diabetes mellitus Current Visit: No Status: Chronic Assessment and plan: Sliding scale insulin. Qualifiers: Diabetes mellitus complication status: with kidney complications Diabetes mellitus complication detail: with chronic kidney disease Diabetes mellitus terminal worker insulin use: with terminal worker use Chronic kidney disease stage: stage 3 (moderate) Qualified Code(s): E11.22 - Type 2 diabetes mellitus with diabetic chronic kidney disease; N18.3 - Chronic kidney disease, stage 3 ( moderate); N18.3 - Chronic kidney disease, stage 3 (moderate); Z79.4 - [facility] (current) use of insulin; Z79.4 - watermelon harvesting supervisor (current) use of insulin; Z79.4 - [facility] (current) use of insulin; Z79.4 - [facility] (current) use of insulin (6) Full code status Current Visit: Yes Status: Acute (7) Hospital-acquired pneumonia Current Visit: Yes Status: Acute Assessment and plan: Start vancomycin Zosyn and Levaquin. blood and sputum cultures (8) Acute and chronic respiratory failure with hypoxia Current Visit: Yes Status: Acute Assessment and plan: Multifactorial due to hospital acquired pneumonia as well as congestive heart failure. ABG shows PH of 7.4,PCO2 OF 35, po2 105 ON 4l of oxygen. Patient will be currently placed on BiPAP. She will be transferred to [facility]. (9) Diastolic congestive heart failure Current Visit: Yes Status: Acute Assessment and plan: Will discontinue IV fluid start Lasix 40 mg IV twice daily. Qualifiers: Qualified Code(s): I50.30 - Unspecified diastolic (congestive) heart failure - Subjective Interval history: Patient seen and examined. Patients appears to be more lethargic today. Oxygen requirements have increased to 4 L of oxygen. According to documentation has about 400 to 500 amounts of urine output past day. Patient is more confused today - Constitutional Vitals: Temp Pulse Resp BP Pulse Ox 99.8 F H 89 18 106/43 96 11/17/17 12:38 11/17/17 12:38 11/17/17 12:38 11/17/17 12:03 11/17/17 12:38 Exam: Gen.: patient is lethargic. confused. Cardiac: normal S1 S2 no additional sounds or murmurs. Chest: basal crackles. Bronchial breathing in both bases Abdomen: soft nontender nondistended normal bowel sounds lower extremity: lax calf muscles 1+ swelling neuro: no focal deficit Internal Medicine: Result - Labs CBC & Chem 7: 11/17/17 03:43 11/17/17 03:43 Labs: Short CBC 11/17/17 Range/Units 03:43 WBC 10.2 (4.3-11.1) K/mcL Hgb 8.3 L (11.5-15.4) g/dL Hct 26.3 L (35.3-44.9) % Plt Count 262 (140-400) K/mcL Neutrophils # 8.4 (1.6-8.9) K/mcL BMP 11/17/17 03:43 Sodium 136 Potassium 5.4 H Chloride 105 Carbon Dioxide 21 L BUN 73 H Creatinine 5.35 H Glucose 200 H Calcium 7.5 L - ABG Interpretation ABG results: ABG ABG pH 7.40 pH Units (7.32-7.45) 11/17/17 09:42 ABG pCO2 36 mmHg (35-45) 11/17/17 09:42 ABG pO2 105 mmHg (85-104) H 11/17/17 09:42 ABG O2 Saturation 98 % (95-98) 11/17/17 09:42 - Impressions Impressions Chest X-Ray 11/17/17 00:00 IMPRESSION: Increasing multifocal airspace disease bilaterally. D/ / Ben Marquez / Ben Marquez Interpreting Provider: Ben Marquez - VTE Documentation of Mechanical Device: Intermittent pneumatic compression device Consult Discharge Plan - Plan Referrals: Oralia Knowles, MEDIA PROMOTER [Primary Care Provider] -
[2017-11-17] MEDS ORDERED: Haloperidol Lactate 5 MG/ML VIAL IVP ONE ×2 (14:57→17:00)
--- NOTE | 2017-11-17 15:09 | Event Note ---
Date of Encounter: 11/17/17 Time of Encounter: 14:45 Spoke with Patient , Daughter , Brother and Sister-in law regarding what is the meaning of Full code what will be trajectory illness in ICU if she gets intubated with background of MGUS , Acute on Chronic kidney injury , hypoalbuminemia in backgorund of the wishes of the patient the goals of care was changed to DNRCCA-DNI . DNR paper was signed by the daughter
[2017-11-17] MEDS ORDERED: Haloperidol Lactate 5 MG/ML VIAL IM ONE (23:03)
[2017-11-17] MEDS ORDERED: Haloperidol Lactate 5 MG/ML VIAL ONE (23:07)
[2017-11-18 03:31] LABS: Basophils % 0.1 %; Hemoglobin 7.7 g/dL (11.5-15.4); Immature Granulocytes % 0.8 % (0-4); Lymphocytes # 0.5 K/mcL (0.6-4.6); Lymphocytes % 2.9 %; Mean Corpuscular HGB Conc 30.8 g/dL (31.6-35.5); Mean Corpuscular Hemoglobin 32.5 pg (28.0-33.3); Mean Corpuscular Volume 105.5 fL (83.0-100.0); Mean Platelet Volume 10.7 fL (9.4-12.4); Monocytes # 0.6 K/mcL (0.0-1.3); Monocytes % 3.7 %; Nucleated Red Blood Cells 0.1 /100 WBC (0); Platelet Count 239 K/mcL (140-400); Red Blood Count 2.37 M/mcL (3.82-4.97); Segmented Neutrophils % 92.5 %
[2017-11-18] MEDS: Levalbuterol Neb 1.25 MG/3 ML IH SCH ×4 (03:37→21:32)
[2017-11-18] MEDS: Insulin LISPRO 300 UNITS/3 ML VIAL SQ SCH ×5 (03:48→21:26)
[2017-11-18 03:53] LABS: Calcium 7.9 mg/dL (8.6-10.3); Magnesium 3.7 mg/dL (1.6-2.6); Potassium 5.1 mEq/L (3.5-5.1)
[2017-11-18] MEDS ORDERED: *HR* LORazepam 2 MG/ML VIAL IVP ONE (04:38)
[2017-11-18] MEDS: methylPREDNISolone 125 MG/2 ML VIAL IVP SCH ×3 (05:22→16:47)
[2017-11-18] MEDS: Aspirin Enteric Coated 81 MG Tablet PO SCH (07:44)
[2017-11-18] MEDS: Folic Acid 1 MG TABLET PO SCH (07:44)
[2017-11-18] MEDS: Furosemide 40 MG/4 ML VIAL IVP SCH (08:25)
--- NOTE | 2017-11-18 09:34 | Nephrology Progress Note ---
Date of Encounter: 11/18/17 Time of Encounter: 09:32 - Assessment and Plan (1) Acute kidney injury superimposed on chronic kidney disease Current Visit: Yes Status: Acute Patient with CRISTINE on CKD with an increasing creatinine. Patient is non oliguric with incomplete Is/Os 11/15/2017. No immediate need for dialysis. Fluids discontinued. Will medically manage mild hyperkalemia. Adjust medications for renal function Avoid nephrotoxins. Patient will need diuresis secondary to worsening respiratory status. (2) Respiratory failure Current Visit: Yes Status: Acute CXR with multifocal infiltrate. Probable pneumonia, especially with rising WBC. Likely aspiration. Possible fluid overload/CHF initially and now probable pneumonia. Supplemental intravenous fluid discontinued. Diuresis restarted. Will need to monitor renal function closely. Recommend prn furosemide and not scheduled dosing. Qualifiers: Qualified Code(s): J96.90 - Respiratory failure, unspecified, unspecified whether with hypoxia or hypercapnia (3) Anemia Current Visit: Yes Status: Chronic No sign of bleeding. Hematology is following. Elevated ferritin and iron saturation of 19%. Transfuse as needed. Qualifiers: Anemia type: unspecified type Qualified Code(s): D64.9 - Anemia, unspecified (4) Essential hypertension Current Visit: No Status: Chronic Blood pressure controlled. Monitor. Patient's blood pressure trending down. (5) Lower extremity edema Current Visit: No Status: Acute Patient would benefit from diuresis (6) MGUS (monoclonal gammopathy of unknown significance) Current Visit: No Status: Acute Per hematology. Will need 24 hour urine to quantify monoclonal protein. (7) Type 2 diabetes mellitus Current Visit: No Status: Chronic Per primary team. Qualifiers: Diabetes mellitus complication status: with kidney complications Diabetes mellitus complication detail: with chronic kidney disease Diabetes mellitus local company intermodal truck driver insulin use: with halfway use Chronic kidney disease stage: stage 3 (moderate) Qualified Code(s): E11.22 - Type 2 diabetes mellitus with diabetic chronic kidney disease; N18.3 - Chronic kidney disease, stage 3 ( moderate); N18.3 - Chronic kidney disease, stage 3 (moderate); Z79.4 - assisted (current) use of insulin; Z79.4 - assisted (current) use of insulin; Z79.4 - local company intermodal truck driver (current) use of insulin; Z79.4 - local company intermodal truck driver (current) use of insulin (8) UTI (urinary tract infection) Current Visit: No Status: Acute Patient with recurrent UTI of unclear etiology. Consider urology evaluation if not done as an outpatient. Qualifiers: Urinary tract infection type: site unspecified Hematuria presence: without hematuria Qualified Code(s): N39.0 - Urinary tract infection, site not specified (9) Hyperkalemia Current Visit: Yes Status: Acute Medical management. (10) Fracture of humeral head, right, closed Current Visit: No Status: Acute Per primary team. Agree with PT. Qualifiers: Encounter type: initial encounter Qualified Code(s): S42.291A - Other displaced fracture of upper end of right humerus, initial encounter for closed fracture Subjective Principal diagnosis: CRISTINE/CKD Interval history: Patient was seen and evaluated. Her daughter was at her bedside. She did worse overnight requiring increased supplemental oxygen and is now on bipap She is more lethargic and asleep at the time of my evaluation. Daughter's questions were answered. Objective - Vital Signs Vital signs: Vital Signs Temp Pulse Resp BP Pulse Ox 11/18/17 07:56 8 95 11/18/17 06:42 98.0 F 80 10 106/43 98 11/18/17 03:46 98.4 F 93 12 131/65 100 11/18/17 03:38 14 131/65 95 11/17/17 23:00 98.4 F 86 18 113/70 98 11/17/17 22:25 16 99 11/17/17 20:09 98.4 F 85 12 112/53 96 11/17/17 17:46 92 11/17/17 17:45 96 14 93 11/17/17 16:11 101 14 122/65 92 11/17/17 16:03 99.0 F 103 16 122/65 92 11/17/17 15:42 16 93 11/17/17 12:38 99.8 F H 89 18 96 11/17/17 12:29 89 11/17/17 12:03 99.8 F H 90 22 106/43 96 11/17/17 10:50 17 98 11/17/17 10:28 98.2 F 87 17 110/51 97 11/17/17 09:45 96 Intake and Output 11/17/17 11/18/17 11/18/17 23:59 07:59 15:59 Intake Total 300 / 300 0 / 0 Output Total 175 / 175 Balance 125 / 125 0 / 0 Intake: IV Fluids 300 / 300 Zosyn Premix 3.375 GM/200 ML 3. 50 / 50 375 gm In 200 ml @ 50 mls/hr IVPB Q12H [facility] Rx#:[id number] Vancocin 1,000 MG In Dextrose 5 250 / 250 % 250 ML @ 167 mls/hr IVPB ONCE ONE Rx#:[id number] Oral 0 / 0 Output: Catheter 175 / 175 Other: Weight 75.4 kg Blood Glucose* 154 172 Patient Weight 11/18/17 23:59 Weight 75.4 kg - General Appearance General appearance: Present: well-developed, well-nourished Exam: on bipap and asleep. EENT: Present: ATNC Respiratory: Present: rhonchi Cardiology: Present: edema, regular rate Integumentary: Present: warm and dry Additional Comments: asleep - Lab 11/18/17 03:16 11/18/17 03:16 Most recent lab results ABG pH 7.40 pH Units (7.32-7.45) 11/17/17 09:42 ABG pCO2 36 mmHg (35-45) 11/17/17 09:42 ABG pO2 105 mmHg (85-104) H 11/17/17 09:42 ABG HCO3 22 mEq/L (21-27) 11/17/17 09:42 ABG O2 Saturation 98 % (95-98) 11/17/17 09:42 Calcium 7.9 mg/dL (8.6-10.3) L 11/18/17 03:16 Phosphorus 5.5 mg/dL (2.7-4.5) H 11/15/17 09:05 Magnesium 3.7 mg/dL (1.6-2.6) H 11/18/17 03:16 Urine Creatinine 100 mg/dL 11/16/17 10:50 Urine Sodium 35.2 mEq/L 11/16/17 10:50 - VTE Documentation of Mechanical Device: Intermittent pneumatic compression device Consult Discharge Plan - Plan Referrals: Oralia Knowles, CSW [Primary Care Provider] -
--- NOTE | 2017-11-18 10:14 | Internal Med Progress Note ---
Date of Encounter: 11/18/17 Time of Encounter: 10:12 - Assessment and plan (1) Acute kidney injury superimposed on chronic kidney disease Current Visit: Yes Status: Acute Assessment and plan: Patient has only minimal improvement in kidney functions with hydration. Patient is more short of breath with evidence of volume overload and pneumonia. Will decrease Lasix dose to 40 mg daily. Patient is on steroids given her underlying multiple myeloma in case that is contributing to worsening kidney functions. (2) UTI (urinary tract infection) Current Visit: No Status: Acute Assessment and plan: Patient currently on vancomycin Zosyn on Levaquin for hospital acquired pneumonia. Await urine and blood cultures. Qualifiers: Urinary tract infection type: site unspecified Hematuria presence: without hematuria Qualified Code(s): N39.0 - Urinary tract infection, site not specified (3) Hypothyroidism Current Visit: No Status: Chronic Assessment and plan: Continue levothyroxine. TSH normal Qualifiers: Hypothyroidism type: unspecified Qualified Code(s): E03.9 - Hypothyroidism , unspecified (4) Multiple myeloma Current Visit: No Status: Chronic Assessment and plan: Appreciating ecology input. Patient has been started on steroids in case multiple myeLoma is part to contributing to worsening kidney functions. Qualifiers: Multiple myeloma remission status: unspecified Qualified Code(s): C90.00 - Multiple myeloma not having achieved remission (5) Type 2 diabetes mellitus Current Visit: No Status: Chronic Assessment and plan: Sliding scale insulin. Qualifiers: Diabetes mellitus complication status: with kidney complications Diabetes mellitus complication detail: with chronic kidney disease Diabetes mellitus custodial insulin use: with company secretary use Chronic kidney disease stage: stage 3 (moderate) Qualified Code(s): E11.22 - Type 2 diabetes mellitus with diabetic chronic kidney disease; N18.3 - Chronic kidney disease, stage 3 ( moderate); N18.3 - Chronic kidney disease, stage 3 (moderate); Z79.4 - criminal lawyer (current) use of insulin; Z79.4 - criminal lawyer (current) use of insulin; Z79.4 - longterm (current) use of insulin; Z79.4 - criminal lawyer (current) use of insulin (6) Full code status Current Visit: Yes Status: Acute Assessment and plan: Patient made do not resuscitate comfort care and rest cannot intubate per academic program specialist. Currently on BiPAP for respiratory support Patient at high risk of decompensation. Prognosis guarded (7) Hospital-acquired pneumonia Current Visit: Yes Status: Acute Assessment and plan: Start vancomycin Zosyn and Levaquin. blood and sputum cultures (8) Acute and chronic respiratory failure with hypoxia Current Visit: Yes Status: Acute Assessment and plan: Multifactorial due to hospital acquired pneumonia as well as congestive heart failure. Patient is more stupors today due to sedating medications given. Will discontinue all sedating MEDICATIONS. (9) Diastolic congestive heart failure Current Visit: Yes Status: Acute Assessment and plan: Decrease Lasix to 40 mg IV daily Qualifiers: Qualified Code(s): I50.30 - Unspecified diastolic (congestive) heart failure - Subjective Interval history: Patient seen and examined. Patients appears to be more stuporous today. This is probably related to sedating medications including Ativan on Haldol that were given earlier. Patient is hypoventilating on BiPAP. Patient made do not resuscitate do not intuibate yesterday - Constitutional Vitals: Temp Pulse Resp BP Pulse Ox 98.0 F 80 8 106/43 95 11/18/17 06:42 11/18/17 06:42 11/18/17 07:56 11/18/17 06:42 11/18/17 07:56 Exam: Gen.: patient is stuporous Cardiac: normal S1 S2 no additional sounds chest: crackles and bronchial breathing in both bases abdomen: soft nontender nondistended normal bowel sounds Neuro: no focal deficits LE: no swelling Internal Medicine: Result - Labs CBC & Chem 7: 11/18/17 03:16 11/18/17 03:16 Labs: Short CBC 11/18/17 Range/Units 03:16 WBC 17.3 H D (4.3-11.1) K/mcL Hgb 7.7 L (11.5-15.4) g/dL Hct 25.0 L (35.3-44.9) % Plt Count 239 (140-400) K/mcL Neutrophils # 16.0 H (1.6-8.9) K/mcL BMP 11/17/17 11/18/17 13:00 03:16 Sodium 137 Potassium 5.2 H 5.1 Chloride 105 Carbon Dioxide 22 L BUN 78 H Creatinine 5.62 H Glucose 119 H Calcium 7.9 L - ABG Interpretation ABG results: ABG ABG pH 7.40 pH Units (7.32-7.45) 11/17/17 09:42 ABG pCO2 36 mmHg (35-45) 11/17/17 09:42 ABG pO2 105 mmHg (85-104) H 11/17/17 09:42 ABG O2 Saturation 98 % (95-98) 11/17/17 09:42 - VTE Documentation of Mechanical Device: Intermittent pneumatic compression device Consult Discharge Plan - Plan Referrals: Oralia Knowles, TELEPHOTO INSTALLER [Primary Care Provider] -
[2017-11-18] MEDS: Piperacillin/Tazobactam 3.375 GM/200 ML BAG IVPB SCH (10:51)
[2017-11-18] MEDS ORDERED: Vancomycin 750 MG in D5% in Water 250 ML IVPB ONE (14:00)
[2017-11-19] MEDS: methylPREDNISolone 125 MG/2 ML VIAL IVP SCH ×4 (00:23→22:01)
[2017-11-19] MEDS: Piperacillin/Tazobactam 3.375 GM/200 ML BAG IVPB SCH ×3 (00:27→22:01)
[2017-11-19] MEDS: Insulin LISPRO 300 UNITS/3 ML VIAL SQ SCH ×6 (00:29→21:57)
[2017-11-19] MEDS ORDERED: *HR* LORazepam 2 MG/ML VIAL IVP ONE (00:53)
[2017-11-19] MEDS: Levalbuterol Neb 1.25 MG/3 ML IH SCH ×4 (04:03→21:27)
[2017-11-19 04:45] LABS: Calcium 7.7 mg/dL (8.6-10.3); Magnesium 3.6 mg/dL (1.6-2.6); Potassium 5.2 mEq/L (3.5-5.1)
[2017-11-19 04:48] LABS: Basophils % 0.1 %; Hematocrit 26.6 % (35.3-44.9); Immature Granulocytes % 0.4 % (0-4); Lymphocytes # 0.3 K/mcL (0.6-4.6); Lymphocytes % 1.7 %; Mean Corpuscular HGB Conc 30.1 g/dL (31.6-35.5); Mean Corpuscular Volume 106.4 fL (83.0-100.0); Mean Platelet Volume 10.8 fL (9.4-12.4); Neutrophils # 15.9 K/mcL (1.6-8.9); Nucleated Red Blood Cells 0.3 /100 WBC (0); Platelet Count 240 K/mcL (140-400); Red Cell Distribution Width 20.5 % (11.5-14.5); Segmented Neutrophils % 91.8 %
[2017-11-19] MEDS ORDERED: *HR* LORazepam 2 MG/ML VIAL IVP PRN (05:07)
[2017-11-19] MEDS: Folic Acid 1 MG TABLET PO SCH (09:34)
[2017-11-19] MEDS: Aspirin Enteric Coated 81 MG Tablet PO SCH (09:34)
[2017-11-19] MEDS: Levofloxacin 500 MG/100 ML 500 MG/100 ML BAG IVPB SCH (09:35)
[2017-11-19] MEDS: Furosemide 40 MG/4 ML VIAL IVP SCH (09:48)
--- NOTE | 2017-11-19 11:04 | Nephrology Progress Note ---
Date of Encounter: 11/19/17 Time of Encounter: 11:00 - Assessment and Plan (1) Acute kidney injury superimposed on chronic kidney disease Current Visit: Yes Status: Acute Kidney function with minimal improvement today UOP 500ml No urgent need for ROLL ON MAN Avoid nephrotoxins (2) Respiratory failure Current Visit: Yes Status: Acute per primary team Qualifiers: Chronicity: unspecified Respiratory failure complication: unspecified whether with hypoxia or hypercapnia Qualified Code(s): J96.90 - Respiratory failure, unspecified, unspecified whether with hypoxia or hypercapnia (3) Anemia Current Visit: Yes Status: Chronic HGb 8.0 Transfuse per parameters per primary team Qualifiers: Anemia type: unspecified type Qualified Code(s): D64.9 - Anemia, unspecified Subjective Principal diagnosis: CRISTINE/CKD Interval history: Patient seen and examined. On bipap; daughter at bedside Objective - Vital Signs Vital signs: Vital Signs Temp Pulse Resp BP Pulse Ox 11/19/17 10:43 17 92 11/19/17 07:33 99.5 F 102 20 105/83 94 11/19/17 04:09 99.5 F 101 26 120/76 90 11/19/17 04:04 25 106/62 90 11/19/17 00:20 24 135/57 99 11/19/17 00:19 99.1 F 92 25 135/57 100 11/18/17 21:32 26 102/49 93 11/18/17 19:27 102/49 11/18/17 18:43 98.2 F 72 16 91/43 98 11/18/17 16:56 97.4 F L 89 14 116/56 99 11/18/17 15:24 15 105/47 98 11/18/17 11:46 17 105/47 100 11/18/17 11:02 4 Intake and Output 11/18/17 11/19/17 11/19/17 23:59 07:59 15:59 Intake Total 0 / 0 0 / 0 300 / 300 Output Total 500 / 500 100 / 100 50 / 50 Balance -500 / -500 -100 / -100 250 / 250 Intake: IV Fluids 300 / 300 Levaquin Premix 500mg/100mL 500 100 / 100 mg In 100 ml @ 100 mls/hr IVPB Q48H [facility] Rx#:[id number] Zosyn Premix 3.375 GM/200 ML 3. 200 / 200 375 gm In 200 ml @ 50 mls/hr IVPB Q12H [facility] Rx#:[id number] Oral 0 / 0 0 / 0 Output: Urine 500 / 500 100 / 100 50 / 50 Stool 0 / 0 Other: Weight 75.5 kg Blood Glucose* 234 174 Patient Weight 11/19/17 23:59 Weight 75.5 kg - General Appearance General appearance: Present: chronically ill, fatigue, frail EENT: Present: ATNC Neck: Present: supple Respiratory: Present: wheezing, course breath sounds Cardiology: Present: edema, normal S1, normal S2 Gastrointestinal: Present: no tenderness, no guarding Integumentary: Present: warm and dry Psychiatric: Present: cooperative - Lab 11/19/17 03:45 11/19/17 03:45 Most recent lab results ABG pH 7.40 pH Units (7.32-7.45) 11/17/17 09:42 ABG pCO2 36 mmHg (35-45) 11/17/17 09:42 ABG pO2 105 mmHg (85-104) H 11/17/17 09:42 ABG HCO3 22 mEq/L (21-27) 11/17/17 09:42 ABG O2 Saturation 98 % (95-98) 11/17/17 09:42 Calcium 7.7 mg/dL (8.6-10.3) L 11/19/17 03:45 Phosphorus 5.5 mg/dL (2.7-4.5) H 11/15/17 09:05 Magnesium 3.6 mg/dL (1.6-2.6) H 11/19/17 03:45 Urine Creatinine 100 mg/dL 11/16/17 10:50 Urine Sodium 35.2 mEq/L 11/16/17 10:50 - VTE Documentation of Mechanical Device: Intermittent pneumatic compression device Consult Discharge Plan - Plan Referrals: Oralia Knowles, [facility] [Primary Care Provider] -
[2017-11-19] MEDS ORDERED: Furosemide 40 MG/4 ML VIAL IVP ONE (11:31)
--- NOTE | 2017-11-19 13:35 | Palliative - Consult Note ---
Date of Encounter: 11/19/17 Time of Encounter: 13:20 - Assessment and Plan (1) Counseling regarding advanced care planning and goals of care Current Visit: Yes Status: Acute Assessment and plan: Discussed with daughter, Salena at pt bedside. Salena was living with pt and had home health services through [facility] prior to admission. Stated her mother had refused ECF after hip surgery. Discussed current clinical situation and goals of care. Code status has already been established as DNR/DNI. Salena states that she does want to proceed with at least short term dialysis if needed, and wants to give her mother a chance at recovery. She understands she is very fragile, currently receiving a great deal of support from the bipap, and unable to currently take any nutrition r/t the above. Discussed that if pt situation does not improve, nutrition would become an issues. Discussed alternate means of nutrition and daughter will be thinking about this. She is hoping that if she has dialysis, she will be able to get off bipap and be able to tolerate po. Stated her goal was to get pt home with home health - we discussed that if her condition does not improve - we may need to re-evaluate goals. Salena wants her mother to be comfortable, but at this time desires to maintain aggressive management for kidneys and resp support with bipap, no intubation. Will continue to monitor clinical status and follow closely. (2) Acute kidney injury superimposed on chronic kidney disease Current Visit: Yes Status: Acute Assessment and plan: Nephrology following, may require dialysis soon (3) Respiratory failure Current Visit: Yes Status: Acute Assessment and plan: Continue with bipap support/bronchodialators/atb therapy. Received IV Lasix this am Qualifiers: Chronicity: unspecified Respiratory failure complication: unspecified whether with hypoxia or hypercapnia Qualified Code(s): J96.90 - Respiratory failure, unspecified, unspecified whether with hypoxia or hypercapnia (4) Multiple myeloma Current Visit: No Status: Chronic Assessment and plan: [facility] following Qualifiers: Multiple myeloma remission status: unspecified Qualified Code(s): C90.00 - Multiple myeloma not having achieved remission Palliative-CN HPI - Data of Consult Consult date: 11/19/17 Requesting Physician: Abby Roman MD Primary Care Provider: Oralia Knowles CNP - Consult Narrative History of present illness: Ms. Beaulieu is a 87 year old female, who was admitted with altered mental status, and has history of multiple myeloma. She is cared for by [facility]. She has recent history of right hip and shoulder fracture, s/p hip surgery. She refused rehab after that surgery, and did return home with daughter Salena. Salena is at bedside providing information, as pt unable to do so. States that her mother was doing well at home caring for self until the fracture. She was getting therapy per [facility]. Salena noticed mental status change and brought to hospital. She was admitted and began treatment for UTI. She has history of CKD III-IV, and is patient of Dr. Pete. Daughter states that Sat-Sun, pt began wheezing and began to have resp difficulty. She is currently being treated for pneumonia/CHF as well. EF 65%. Lasix IV was given earlier this am, looks like little response at my visit. Nephrology following closely, as pt may have dialysis need. Palliative care was consulted to assist with goals of care discussion. Upon my visit, daughter is at bedside. Patient is on bipap at 100%. She is resting quietly,, and appears in no distress. When awakened, she does pull at bipap mask. She is not able to answer questions at this time. Daughter states she has appeared comfortable, but is having a lot of anxiety. Daughter states she understands that there is a "fine line" between treating CHF and renal failure. CC: Abby Roman MD Past Med Surg Social Fam HX - Past Medical History Medical history: arthritis, cancer, diabetes, GERD, hypertension, kidney stones , renal disease Psychiatric history: schizophrenia - Past Surgical History Surgical History: cholecystectomy, orthopedic, other - Social History Smoking Status: Never smoker Smokeless Tobacco Status: No Alcohol use: none Drug use: none - Family History Brother Living Status: Still Living Hx Family Cancer: Yes (colon) Medications and Allergies Folic Acid 0.4 mg PO DAILY 04/23/17 [History] Lisinopril [Zestril] 40 mg PO DAILY 04/23/17 [History] Lovastatin 10 mg PO DAILY 04/23/17 [History] Metoprolol [Lopressor] 50 mg PO BID 04/23/17 [History] Pioglitazone [Actos] 45 mg PO 0800 04/23/17 [History] Amlodipine Besylate 10 mg PO DAILY 10/13/17 [History] Ascorbate Calcium [Vitamin C] 500 mg PO DAILY 10/13/17 [History] Aspirin [Lo-Dose Aspirin EC] 81 mg PO DAILY 10/13/17 [History] Ca/D3/Mag#11/Zinc/[employer] Pilot/Bill/Bor [Caltrate 600+D Plus Tablet] 1 tab PO DAILY 10/13 [History] Gabapentin [Neurontin] 600 mg PO BID 10/13/17 [History] Insulin Glargine,Hum.rec.anlog [Basaglar Kwikpen U-100] 12 unit SQ DAILY [History] Levothyroxine [Synthroid] 75 mcg PO 0630 10/13/17 [History] Multivitamin [Multivitamins] 1 cap PO DAILY 10/13/17 [History] Omeprazole [PriLOSEC] 40 mg PO DAILY 10/13/17 [History] Oxybutynin [Ditropan] 5 mg PO DAILY 10/13/17 [History] hydrALAZINE [HydrALAZINE] 10 mg PO TID 10/13/17 [History] HYDROcodone/Acet 7.5/325 mg [Ceres 7.5-325 mg] 1 tab PO Q8H PRN #21 tablet 10/16 [Rx] Ondansetron [Zofran] 8 mg PO Q8HR 11/04/17 [History] Polyethylene Glycol 3350 [MiraLAX Powder Bulk 17.9 Oz] 1 scoop PO DAILY #510 gm 11/04/17 [Rx] Ranitidine HCl [Zantac] 150 mg PO BID #60 tablet 11/04/17 [Rx] traZODone [TraZODone] 50 mg PO HS 11/15/17 [History] 3 Allergy/AdvReac Type Severity Reaction Status Date / Time No Known Allergies Allergy Verified 11/15/17 08:54 ROS unobtainable: due to mental status Palliative Care-Exam - Constitutional Vitals: Temp Pulse Resp BP Pulse Ox 99.3 F 102 20 119/61 93 11/19/17 11:03 11/19/17 11:03 11/19/17 11:03 11/19/17 11:03 11/19/17 11:03 General appearance: Present: average body habitus, mild distress - Head Head Exam: Present: normal inspection - Eye Eye exam: Present: normal appearance, PERRL - Respiratory Additional comments: Rhonchi throughout rt lung gonzalez. Expiratory wheezes noted. Remains on bipap at 100% Fio2 - Cardiovascular Cardiovascular exam: Present: +S1, +S2 - GI/Abdominal Exam GI/Abdominal exam: Present: normal bowel sounds, soft - Catheter Type: Urethral (Nichols) Additional comments: Clear yellow urine - Extremities Exam Additional comments: 2+ edema bilateral lower extremities - Neurological Exam Neurological exam: Present: altered Additional comments: Eyes open with assessment. Bipap on - difficult to communicate. Appears anxious and confused when awake. Not following commands - Skin Skin exam: Present: dry, pallor, warm Internal Medicine - CN: Reslt - Labs CBC & Chem 7: 11/19/17 03:45 11/19/17 03:45 Labs: Short CBC 11/19/17 Range/Units 03:45 WBC 17.3 H (4.3-11.1) K/mcL Hgb 8.0 L (11.5-15.4) g/dL Hct 26.6 L (35.3-44.9) % Plt Count 240 (140-400) K/mcL Neutrophils # 15.9 H (1.6-8.9) K/mcL BMP 11/19/17 03:45 Sodium 138 Potassium 5.2 H Chloride 106 Carbon Dioxide 21 L BUN 86 H Creatinine 5.60 H Glucose 168 H Calcium 7.7 L - ABG Interpretation ABG results: ABG ABG pH 7.40 pH Units (7.32-7.45) 11/17/17 09:42 ABG pCO2 36 mmHg (35-45) 11/17/17 09:42 ABG pO2 105 mmHg (85-104) H 11/17/17 09:42 ABG O2 Saturation 98 % (95-98) 11/17/17 09:42 - Impressions Impressions Chest X-Ray 11/15/17 11:11 IMPRESSION: Retrocardiac consolidation and small left pleural effusion may reflect pneumonia and parapneumonic effusion in the correct clinical setting. Healing, right humeral neck fracture. D/ / 11/15/2017 11:54:13 Syeda Boyd MD / [facility] Interpreting Provider: Syeda Boyd MD Consult Discharge Plan - Plan Referrals: Oralia Knowles, SHRAVAN [Primary Care Provider] - Palliative Quality Palliative Quality: Screen for Code Status: Yes, Screen for Goals of Care: Yes, Screen for Pain: Yes, If Pain Regimen Started, Initiate Bowel Regimen: NA, Screen for Nausea/Vomitting: Yes Code Status: 11/15/17 11:01 Resuscitation Status: Active [RES] Routine Comment: Resuscitation Status: Full Code 11/17/17 15:10 CODE [Resuscitation Status: Active] [RES] Routine Comment: spoke with patient and daughter Resuscitation Status: [id number]
--- NOTE | 2017-11-19 14:42 | Internal Med Progress Note ---
Date of Encounter: 11/19/17 Time of Encounter: 14:48 - Assessment and plan (1) Acute respiratory failure with hypoxia Current Visit: Yes Status: Acute Assessment and plan: Continue O2 supplementation with BiPAP. Patient remains at high risk for complications. Is currently DNR DNI. (2) Acute kidney injury superimposed on chronic kidney disease Current Visit: Yes Status: Acute Assessment and plan: Creatinine remains elevated. Nephrology following. Urine output remains poor. If this continues, patient may require dialysis. Discussed with patient and family about this. Also offered to consult palliative care to discuss goals of care. Family agrees for this. We will place consult. (3) Pneumonia Current Visit: Yes Status: Acute Assessment and plan: Blood cultures remain negative. We will begin to de-escalate antibiotics. Stop vancomycin. Continue Zosyn and Levaquin. Qualifiers: Pneumonia type: due to unspecified organism Laterality: unspecified laterality Qualified Code(s): J18.9 - Pneumonia, unspecified organism (4) CKD (chronic kidney disease), stage III Current Visit: No Status: Chronic (5) Diastolic congestive heart failure Current Visit: Yes Status: Acute Assessment and plan: Patient remains volume overloaded. Unable to diurese appropriately due to acute kidney injury and oliguria. If this continues, patient may require dialysis. Continue Lasix. Continue BiPAP. Qualifiers: Congestive heart failure chronicity: acute on chronic Qualified Code(s): I50.33 - Acute on chronic diastolic (congestive) heart failure (6) Hypothyroidism Current Visit: Yes Status: Chronic Assessment and plan: Continue levothyroxine Qualifiers: Hypothyroidism type: unspecified Qualified Code(s): E03.9 - Hypothyroidism , unspecified (7) Multiple myeloma Current Visit: Yes Status: Chronic Assessment and plan: Seen by oncology earlier during this hospitalization. Recommended steroid use but patient has had poor response with regards to renal function. We will begin to taper her steroid dose. Recommend a short taper. Leukocytosis likely due to steroid use. Qualifiers: Multiple myeloma remission status: unspecified Qualified Code(s): C90.00 - Multiple myeloma not having achieved remission (8) Type 2 diabetes mellitus Current Visit: Yes Status: Chronic Assessment and plan: Fairly controlled. Continue current insulin regimen as patient has poor appetite and is not able to swallow or stay off BiPAP long enough to eat. 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 Patient did have yeast in her earlier urine sample but repeat urine sample was negative. We will hold off on using fluconazole at this time. Qualifiers: Urinary tract infection type: site unspecified Hematuria presence: without hematuria Qualified Code(s): N39.0 - Urinary tract infection, site not specified - Subjective Interval history: Patient currently on BiPAP. Somnolent. Not answering questions. Daughter at bedside and provides answers. Patient has had about 500 mL urine output yesterday. So far she has had about 150 mL urine output this morning. - Constitutional Vitals: Temp Pulse Resp BP Pulse Ox 99.3 F 102 20 119/61 93 11/19/17 11:03 11/19/17 11:03 11/19/17 11:03 11/19/17 11:03 11/19/17 11:03 General appearance: Present: A&O X 0 Exam: Patient is on BiPAP. With decreased mentation. - Respiratory Respiratory exam: Present: decreased breath sounds (At both bases). Absent: accessory muscle use, rales, rhonchi, wheezes Additional comments: Coarse crackles bilaterally - Cardiovascular Cardiovascular exam: Present: RRR, +S1, +S2, tachycardia. Absent: diastolic murmur, gallop, rubs, systolic murmur - GI/Abdominal GI/Abdominal exam: Present: normal bowel sounds, soft, no peritoneal signs. Absent: distended, tenderness - Extremities Exam Extremities exam: Present: pedal edema, warm, radial pulses palpable and symmetrical. Absent: calf tenderness, cyanotic - Neurological Exam Neurological exam: Present: altered, no focal deficits. Absent: facial droop, speech deficit - Skin Skin exam: Present: dry, intact Internal Medicine: Result - Labs CBC & Chem 7: 11/19/17 03:45 11/19/17 03:45 Labs: Short CBC 11/19/17 Range/Units 03:45 WBC 17.3 H (4.3-11.1) K/mcL Hgb 8.0 L (11.5-15.4) g/dL Hct 26.6 L (35.3-44.9) % Plt Count 240 (140-400) K/mcL Neutrophils # 15.9 H (1.6-8.9) K/mcL BMP 11/19/17 03:45 Sodium 138 Potassium 5.2 H Chloride 106 Carbon Dioxide 21 L BUN 86 H Creatinine 5.60 H Glucose 168 H Calcium 7.7 L - ABG Interpretation ABG results: ABG ABG pH 7.40 pH Units (7.32-7.45) 11/17/17 09:42 ABG pCO2 36 mmHg (35-45) 11/17/17 09:42 ABG pO2 105 mmHg (85-104) H 11/17/17 09:42 ABG O2 Saturation 98 % (95-98) 11/17/17 09:42 - Impressions Impressions Chest X-Ray 11/15/17 11:11 IMPRESSION: Retrocardiac consolidation and small left pleural effusion may reflect pneumonia and parapneumonic effusion in the correct clinical setting. Healing, right humeral neck fracture. D/ / 11/15/2017 11:54:13 Syeda Boyd MD / [facility] Interpreting Provider: Syeda Boyd MD - VTE Documentation of Mechanical Device: Intermittent pneumatic compression device Consult Discharge Plan - Plan Referrals: Oralia Knowles, GLUE COOK [Primary Care Provider] -
[2017-11-19 14:47] LABS: Activated Partial Thrombo Time 24.3 Seconds (26.0-36.0)
[2017-11-19 14:48] LABS: Prothrombin Time 10.3 Seconds (9.4-12.1)
[2017-11-19] MEDS ORDERED: *HR* Heparin 5,000 UNIT/ML VIAL ONE (15:02)
[2017-11-19 15:08] LABS: Hepatitis B Surface Antigen Nonreactive (Nonreactive)
[2017-11-19] MEDS: *HR* Heparin 5,000 UNIT/ML VIAL SQ SCH (16:48)
[2017-11-19] MEDS ORDERED: Aminoglycoside Consult 1 EACH MC ONE (16:59)
[2017-11-19] MEDS ORDERED: 0.9 % Sodium Chloride 250 ML IVC PRN (17:05)
[2017-11-19] MEDS ORDERED: *HR* Heparin 10,000 UNIT/10 ML VIAL IV PRN (17:05)
[2017-11-19] MEDS ORDERED: 0.9 % Sodium Chloride 2,000 ML ONE (17:12)
[2017-11-19] MEDS ORDERED: 0.9 % Sodium Chloride 1,000 ML PRIME SCH (17:15)
[2017-11-20 01:52] LABS: ABG Base Excess -4 mEq/L (-2 to 3); ABG HCO3 27 mEq/L (21-27); ABG Oxygen Saturation 84 % (95-98); ABG PCO2 86 mmHg (35-45); ABG PO2 68 mmHg (85-104); ABG TCO2 30 mEq/L (20-26)
[2017-11-20] MEDS: Insulin LISPRO 300 UNITS/3 ML VIAL SQ SCH ×4 (02:32→11:54)
[2017-11-20] MEDS: Levalbuterol Neb 1.25 MG/3 ML IH SCH ×2 (04:01→10:30)
[2017-11-20] MEDS: *HR* Heparin 5,000 UNIT/ML VIAL SQ SCH (05:26)
[2017-11-20 06:25] LABS: Albumin 2.6 g/dL (3.5-5.7); Albumin/Globulin Ratio 0.8 (1.1-2.2); Bilirubin,Total 0.4 mg/dL (0.3-1.0); Calcium 7.8 mg/dL (8.6-10.3); Globulin 3.4 g/dL (2.4-3.5); Magnesium 3.2 mg/dL (1.6-2.6); Phosphorous 7.4 mg/dL (2.7-4.5)
[2017-11-20 07:20] LABS: Red Blood Count 2.64 M/mcL (3.82-4.97)
[2017-11-20 07:25] LABS: Hematocrit 28.8 % (35.3-44.9); Hemoglobin 8.6 g/dL (11.5-15.4); Immature Platelets 3.8 % (1.1-6.1); Mean Corpuscular HGB Conc 29.9 g/dL (31.6-35.5); Mean Corpuscular Hemoglobin 32.6 pg (28.0-33.3); Mean Corpuscular Volume 109.1 fL (83.0-100.0); Mean Platelet Volume 10.9 fL (9.4-12.4); Neutrophils # 25.4 K/mcL (1.6-8.9); Nucleated Red Blood Cells 0.4 /100 WBC (0); Platelet Count 222 K/mcL (140-400); Red Cell Distribution Width 20.1 % (11.5-14.5)
[2017-11-20] MEDS ORDERED: 0.9 % Sodium Chloride 250 ML IVC PRN (07:40)
[2017-11-20] MEDS ORDERED: Mannitol 25% vial 12.5 GM/50 ML VIAL IVP PRN (07:40)
[2017-11-20] MEDS ORDERED: *HR* Heparin 10,000 UNIT/10 ML VIAL IV PRN (07:40)
[2017-11-20] MEDS: methylPREDNISolone 125 MG/2 ML VIAL IVP SCH (08:15)
[2017-11-20] MEDS: Aspirin Enteric Coated 81 MG Tablet PO SCH (08:15)
[2017-11-20] MEDS: Furosemide 40 MG/4 ML VIAL IVP SCH (08:15)
[2017-11-20] MEDS: Folic Acid 1 MG TABLET PO SCH (08:15)
[2017-11-20 08:45] LABS: ABG Base Excess -4 mEq/L (-2 to 3); ABG HCO3 28 mEq/L (21-27); ABG Oxygen Saturation 98 % (95-98); ABG PCO2 87 mmHg (35-45); ABG PH 7.12 pH Units (7.32-7.45); ABG PO2 156 mmHg (85-104); ABG TCO2 31 mEq/L (20-26)
[2017-11-20 08:56] LABS: Lymphocytes # 0.3 K/mcL (0.6-4.6); Monocytes # 2.5 K/mcL (0.0-1.3)
[2017-11-20 08:57] LABS: Anisocytosis 1+ (Not Present)
[2017-11-20 08:58] LABS: Basophilic Stippling 1+ (Not Present); Burr Cells 1+ (Not Present)
[2017-11-20] MEDS ORDERED: Albumin 25% 25gram/100mL 25 GM/100 ML IV.SOLN IVPB ONE (09:56)
--- NOTE | 2017-11-20 09:56 | Palliative Progress Note ---
Date of Encounter: 11/20/17 Time of Encounter: 09:10 - Assessment and plan (1) Counseling regarding advanced care planning and goals of care Current Visit: Yes Status: Acute Assessment and plan: I had long discussion with daughter at the bedside regarding her deterioration over the last day. I was very ochoa with her, stating that I did not think her mother will be able to survive this and encouraged her to call and notify her family. I discussed that despite treatment over the last 5 days, her condition was declining instead of improving. Discussed how patients with pneumonia, even when treated, can still do poorly and pass from the infection. Daughter still feels that she has "chance to get better", and she was "being optimistic" . Dr. Wall (nephrology) in during my visit to discuss renal issues, and again reiterated to the daughter that dialysis is not going to help the infection, and that her respiratory status was most likely related to pneumonia and not the kidney failure. D/W Dr. Roman who will also be speaking with daughter - discussed possible pulmonary consult. She remains DNR/DNI. Will revisit again later today. (2) Acute kidney injury superimposed on chronic kidney disease Current Visit: Yes Status: Acute (3) Respiratory failure Current Visit: Yes Status: Acute Assessment and plan: CXR with near complete opacification yesterday - percussion performed last night. CXR slightly improved today, however, moving little air and acidotic according to ABG's Qualifiers: Chronicity: unspecified Respiratory failure complication: unspecified whether with hypoxia or hypercapnia Qualified Code(s): J96.90 - Respiratory failure, unspecified, unspecified whether with hypoxia or hypercapnia (4) Multiple myeloma Current Visit: Yes Status: Chronic Qualifiers: Multiple myeloma remission status: unspecified Qualified Code(s): C90.00 - Multiple myeloma not having achieved remission - Time Spent With Patient Total time spent is greater than 50% in coordination of care (as documented) at patient's floor/unit and/or counseling patient: 25 - 35 minutes - Subjective Interval history: Patient with continued deterioration over last 12 hours - minimally responsive this am, increasing leukocytosis, acidotic with pH 7.12/CO2 87, marked decrease in blood pressure. Did have line placed and dialysis last pm. Daughter is at bedside. Dr. Wall in from nephrology during my visit. - Constitutional Vitals: Abnormal lab results WBC 28.2 K/mcL (4.3-11.1) H D 11/20/17 06:57 RBC 2.64 M/mcL (3.82-4.97) L 11/20/17 06:57 Hgb 8.6 g/dL (11.5-15.4) L 11/20/17 06:57 Hct 28.8 % (35.3-44.9) L 11/20/17 06:57 MCV 109.1 fL (83.0-100.0) H 11/20/17 06:57 MCHC 29.9 g/dL (31.6-35.5) L 11/20/17 06:57 RDW 20.1 % (11.5-14.5) H 11/20/17 06:57 Neutrophils # 25.4 K/mcL (1.6-8.9) H 11/20/17 06:57 Lymphocytes # 0.3 K/mcL (0.6-4.6) L 11/20/17 06:57 Monocytes # 2.5 K/mcL (0.0-1.3) H 11/20/17 06:57 Nucleated RBCs/100 WBC 0.4 /100 WBC (0) H 11/20/17 06:57 Basophilic Stippling 1+ (Not Present) A 11/20/17 06:57 Anisocytosis 1+ (Not Present) A 11/20/17 06:57 [place] Cells 1+ (Not Present) A 11/20/17 06:57 APTT 24.3 Seconds (26.0-36.0) L 11/19/17 14:21 ABG pH 7.12 pH Units (7.32-7.45) L* 11/20/17 08:39 ABG pCO2 87 mmHg (35-45) H* 11/20/17 08:39 ABG pO2 156 mmHg (85-104) H 11/20/17 08:39 ABG HCO3 28 mEq/L (21-27) H 11/20/17 08:39 ABG Total CO2 31 mEq/L (20-26) H 11/20/17 08:39 ABG Base Excess -4 mEq/L (-2 to 3) L 11/20/17 08:39 BUN 68 mg/dL (8-23) H 11/20/17 05:54 Creatinine 4.49 mg/dL (0.60-1.20) H 11/20/17 05:54 Est GFR ( Amer) 11 (> 60) L 11/20/17 05:54 Est GFR (Non-Af Amer) 9 (> 60) L 11/20/17 05:54 Glucose 221 mg/dL (70-105) H 11/20/17 05:54 POC Glucose 203 (58-89) H 11/20/17 00:30 Calculated Osmolality 313 (280-300) H 11/20/17 05:54 Calcium 7.8 mg/dL (8.6-10.3) L 11/20/17 05:54 Phosphorus 7.4 mg/dL (2.7-4.5) H 11/20/17 05:54 Magnesium 3.2 mg/dL (1.6-2.6) H 11/20/17 05:54 Iron 37 mcg/dL (50-170) L 11/16/17 02:40 Transferrin 142 mg/dL (203-362) L 11/16/17 02:40 Ferritin > 1350 ng/ml (10-120) H 11/16/17 02:40 Serum Total Protein 6.0 g/dL (6.4-8.9) L 11/20/17 05:54 Albumin 2.6 g/dL (3.5-5.7) L 11/20/17 05:54 Albumin/Globulin Ratio 0.8 (1.1-2.2) L 11/20/17 05:54 Urine Clarity Turbid (Clear) A 11/16/17 03:15 Urine Protein 30 mg/dL (Neg-Trace) H 11/16/17 03:15 Urine Ketones Trace mg/dL (Negative) H 11/16/17 03:15 Urine Blood Trace (Negative) H 11/16/17 03:15 Ur Leukocyte Esterase Large (Negative) H 11/16/17 03:15 Urine Microscopic RBC 5-15 per hpf (0-3) H 11/16/17 03:15 Urine Microscopic WBC TNTC per hpf (0-3) H 11/16/17 03:15 Ur Squamous Epith Cells Many per lpf (None-Few) H 11/16/17 03:15 Urine Bacteria Many per hpf (None-Few) H 11/16/17 03:15 Urine Yeast Moderate per hpf (None Seen) H 11/15/17 10:00 General appearance: Present: no acute distress - Respiratory Additional comments: Remains on bipap with little air movement heard in bases, rales to upper lobes rt greater than left - Cardiovascular Cardiovascular exam: Present: +S1, +S2 - GI/Abdominal GI/Abdominal exam: Present: normal bowel sounds, soft - Additional comments: Nichols patent - Extremities Exam Extremities exam: Present: normal capillary refill, normal inspection - Neurological Exam Additional comments: Minimally responsive, does not follow commands. Did not respond to voice, responds to painful stimuli - Skin Skin exam: Present: dry, pallor, warm Palliative Quality Palliative Quality: Screen for Code Status: Yes, Screen for Goals of Care: Yes, Screen for Pain: Yes, If Pain Regimen Started, Initiate Bowel Regimen: NA, Screen for Nausea/Vomitting: Yes Code Status: 11/15/17 11:01 Resuscitation Status: Active [RES] Routine Comment: Resuscitation Status: Full Code 11/17/17 15:10 CODE [Resuscitation Status: Active] [RES] Routine Comment: spoke with patient and daughter Resuscitation Status: [id number] - Labs CBC & Chem 7: 11/20/17 06:57 11/20/17 05:54 Labs: Laboratory Results - last 24 hr 11/19/17 11/19/17 11/19/17 03:44 07:35 11:03 WBC RBC Hgb Hct MCV MCH MCHC RDW Plt Count MPV Seg Neutrophils % Lymphocytes % Monocytes % Neutrophils # Lymphocytes # Monocytes # Nucleated RBCs/100 WBC Immature Plt Fraction Basophilic Stippling Anisocytosis [place] Cells PT INR APTT ABG pH ABG pCO2 ABG pO2 ABG HCO3 ABG Total CO2 ABG O2 Saturation ABG Base Excess O2 Delivery Device Inspired O2 Sodium Potassium Chloride Carbon Dioxide BUN Creatinine Est GFR ( Amer) Est GFR (Non-Af Amer) BUN/Creatinine Ratio Glucose POC Glucose 174 H 185 H Calculated Osmolality Calcium Phosphorus Magnesium Total Bilirubin AST ALT Alkaline Phosphatase Serum Total Protein Albumin Globulin Albumin/Globulin Ratio Hep Bs Antigen Nonreactive Hep Bs Antibody 0.00 Specimen Rejected Person Notif of Crit 11/19/17 11/19/17 11/19/17 14:21 16:20 21:30 WBC RBC Hgb Hct MCV MCH MCHC RDW Plt Count MPV Seg Neutrophils % Lymphocytes % Monocytes % Neutrophils # Lymphocytes # Monocytes # Nucleated RBCs/100 WBC Immature Plt Fraction Basophilic Stippling Anisocytosis [place] Cells PT 10.3 INR 1.0 APTT 24.3 L ABG pH ABG pCO2 ABG pO2 ABG HCO3 ABG Total CO2 ABG O2 Saturation ABG Base Excess O2 Delivery Device Inspired O2 Sodium Potassium Chloride Carbon Dioxide BUN Creatinine Est GFR ( Amer) Est GFR (Non-Af Amer) BUN/Creatinine Ratio Glucose POC Glucose 186 H 184 H Calculated Osmolality Calcium Phosphorus Magnesium Total Bilirubin AST ALT Alkaline Phosphatase Serum Total Protein Albumin Globulin Albumin/Globulin Ratio Hep Bs Antigen Hep Bs Antibody Specimen Rejected Person Notif of Crit 11/20/17 11/20/17 11/20/17 00:30 01:47 05:54 WBC RBC Hgb Hct MCV MCH MCHC RDW Plt Count MPV Seg Neutrophils % Lymphocytes % Monocytes % Neutrophils # Lymphocytes # Monocytes # Nucleated RBCs/100 WBC Immature Plt Fraction Basophilic Stippling Anisocytosis [place] Cells PT INR APTT ABG pH 7.10 L* ABG pCO2 86 H* ABG pO2 68 L ABG HCO3 27 ABG Total CO2 30 H ABG O2 Saturation 84 L ABG Base Excess -4 L O2 Delivery Device Adult Vent Inspired O2 100.0 Sodium 138 Potassium 5.0 Chloride 105 Carbon Dioxide 26 BUN 68 H Creatinine 4.49 H Est GFR ( Amer) 11 L Est GFR (Non-Af Amer) 9 L BUN/Creatinine Ratio 15 Glucose 221 H POC Glucose 203 H Calculated Osmolality 313 H Calcium 7.8 L Phosphorus 7.4 H Magnesium 3.2 H Total Bilirubin 0.4 AST 36 ALT 12 Alkaline Phosphatase 86 Serum Total Protein 6.0 L Albumin 2.6 L Globulin 3.4 Albumin/Globulin Ratio 0.8 L Hep Bs Antigen Hep Bs Antibody Specimen Rejected Person Notif of [place] lo tate 11/20/17 11/20/17 11/20/17 06:27 06:57 08:39 WBC 28.2 H D RBC 2.64 L Hgb 8.6 L Hct 28.8 L MCV 109.1 H MCH 32.6 MCHC 29.9 L RDW 20.1 H Plt Count 222 MPV 10.9 Seg Neutrophils % 90.0 Lymphocytes % 1.0 Monocytes % 9.0 Neutrophils # 25.4 H Lymphocytes # 0.3 L Monocytes # 2.5 H Nucleated RBCs/100 WBC 0.4 H Immature Plt Fraction 3.8 Basophilic Stippling 1+ A Anisocytosis 1+ A [place] Cells 1+ A PT INR APTT ABG pH 7.12 L* ABG pCO2 87 H* ABG pO2 156 H ABG HCO3 28 H ABG Total CO2 31 H ABG O2 Saturation 98 ABG Base Excess -4 L O2 Delivery Device Inspired O2 Sodium Potassium Chloride Carbon Dioxide BUN Creatinine Est GFR ( Amer) Est GFR (Non-Af Amer) BUN/Creatinine Ratio Glucose POC Glucose Calculated Osmolality Calcium Phosphorus Magnesium Total Bilirubin AST ALT Alkaline Phosphatase Serum Total Protein Albumin Globulin Albumin/Globulin Ratio Hep Bs Antigen Hep Bs Antibody Specimen Rejected MCV [place] Person Notif of Katey Hernandez daily - Impressions Impressions Guidance Needle Placement Ultrasound 11/19/17 00:00 IMPRESSION: Successful ultrasound and fluoroscopy guided non-tunneled temporary hemodialysis catheter placement. D/ / Felipe Smith MD / Felipe Smith MD Interpreting Provider: Felipe Smith MD Insertion Non-Tunneled Catheter 11/19/17 00:00 IMPRESSION: Successful ultrasound and fluoroscopy guided non-tunneled temporary hemodialysis catheter placement. D/ / Felipe Smith MD / Felipe Smith MD Interpreting Provider: Felipe Smith MD Chest X-Ray 11/19/17 15:00 IMPRESSION: 1. Central venous catheter tip overlies the atrial caval junction. No pneumothorax. 2. New complete opacification of the left hemithorax. The differential includes mucous plugging given its rapid development from the prior exam. Airspace consolidation is also present. 3. Extensive diffuse airspace opacities in the right lung with a small right pleural effusion, which could represent pulmonary edema or multifocal infection. D/ / Estiven Moreno MD / Estiven Moreno MD Interpreting Provider: Estiven Moreno MD Chest X-Ray 11/20/17 07:29 IMPRESSION: Extensive partially consolidating airspace disease right upper lobe and both lower lobes. This could represent aspiration or pneumonia. Improved aeration throughout the left upper lung possibly from clearing of mucous plugging. D/ / Shane Winters MD / Shane Winters MD Interpreting Provider: Shane Winters MD - ABG Interpretation ABG results: ABG ABG pH 7.12 pH Units (7.32-7.45) L* 11/20/17 08:39 ABG pCO2 87 mmHg (35-45) H* 11/20/17 08:39 ABG pO2 156 mmHg (85-104) H 11/20/17 08:39 ABG O2 Saturation 98 % (95-98) 11/20/17 08:39 PT/INR, D-dimer PT 10.3 Seconds (9.4-12.1) 11/19/17 14:21 Consult Discharge Plan - Plan Referrals: Oralia Knowles, IDENTIFICATION OFFICER [Primary Care Provider] -
[2017-11-20] MEDS: Piperacillin/Tazobactam 3.375 GM/200 ML BAG IVPB SCH (10:22)
--- NOTE | 2017-11-20 10:51 | Pulmonology Consult Note ---
<Gm Manzano - Last Filed: 11/20/17 11:26> Date of Encounter: 11/20/17 Time of Encounter: 09:50 Assessment and Plan (1) Acute respiratory failure with hypoxia Current Visit: Yes Status: Acute Pt is DNR/DNI Curently on Bipap 95% on 100% FIO2 TV 500 team had discussion with family concerning prognosis patient unresponsive, somnolent on exam. Patient has begun hypotensive likely secondary to Pneumonia, lactic acidosis Plan: continue non invasive ventilation for now. discus transition to comfort care with family prognosis is poor. (2) Pneumonia Current Visit: Yes Status: Acute Patient likely has new pneumonia CXR:"Extensive partially consolidating airspace disease right upper lobe and both lower lobes. This could represent aspiration or pneumonia." multifocal pneumonia likely 2/2 aspiration. Patient not improving on Non invasive ventilation Plan: Palliative is on board. Discussed prognosis with family which is poor. Will discus transition to comfort care Qualifiers: Pneumonia type: due to unspecified organism Laterality: bilateral Lung location: unspecified part of lung Qualified Code(s): J18.9 - Pneumonia, unspecified organism (3) Acute kidney injury superimposed on chronic kidney disease Current Visit: Yes Status: Acute CRISTINE on CKD. likely 2/2 to UTI. Nephrology is on board Underwent dialysis yesterday mild improvement in BUN/Cr 69/4.49 from 86/5.6 Plan: Patient unlikely to improve Palliative is on board. continue to monitor (4) UTI (urinary tract infection) Current Visit: Yes Status: Acute Pt with hx of multiple UTIs in the past year. Currently growing pansensitive E. Coli. Currently on levaquin and zosyn Plan: Continue management per primary team. Qualifiers: Urinary tract infection type: site unspecified Hematuria presence: without hematuria Qualified Code(s): N39.0 - Urinary tract infection, site not specified (5) Diastolic congestive heart failure Current Visit: Yes Status: Acute Hx of dCHF Pt volume overloaded despite 2 L taken off during dialysis yesterday Plan: Continue management per primary team. Qualifiers: Congestive heart failure chronicity: acute on chronic Qualified Code(s): I50.33 - Acute on chronic diastolic (congestive) heart failure (6) Multiple myeloma Current Visit: Yes Status: Chronic Oncology following Patient had poor response to steroids with renal function Plan: Continue care per primary team and oncology Qualifiers: Multiple myeloma remission status: unspecified Qualified Code(s): C90.00 - Multiple myeloma not having achieved remission (7) Type 2 diabetes mellitus Current Visit: Yes Status: Chronic Hx of DM on SSI regimen Plan: Continue management per primary team Qualifiers: Diabetes mellitus complication status: with kidney complications Diabetes mellitus complication detail: with chronic kidney disease Diabetes mellitus termite exterminator helper insulin use: with termite exterminator helper use Chronic kidney disease stage: stage 3 (moderate) Qualified Code(s): E11.22 - Type 2 diabetes mellitus with diabetic chronic kidney disease; N18.3 - Chronic kidney disease, stage 3 ( moderate); N18.3 - Chronic kidney disease, stage 3 (moderate); Z79.4 - emt intermediate (current) use of insulin; Z79.4 - emt intermediate (current) use of insulin; Z79.4 - emt intermediate (current) use of insulin; Z79.4 - emt intermediate (current) use of insulin (8) Hypothyroidism Current Visit: Yes Status: Chronic Hx of hypothyroidism on levothyroxine Plan: Continue management per primary team Qualifiers: Hypothyroidism type: unspecified Qualified Code(s): E03.9 - Hypothyroidism , unspecified History of Present Illness Consult date: 11/20/17 Requesting physician: Abby Roman Reason for consult: hypoxemia, pneumonia Chief complaint: Pneumonia, Renal Failure History of present illness: 87 yo F c PMHx of CKD, DM, multiple myeloma, HTN, hypothyroidism, d CHF, schizophrenia admitted on 11/15 for renal failure. Per daughter patient has been confused since a week before . Patient had a fall at home where she broke her hip and shoulder and was discovered to have a UTI causing AMS leading to the fall. Patient has remained confused at home and visited her PCP on 11/14 and had blood work done. The next day they were notified that patient's renal function had worsened and patient was taken to the hospital. Patient has been treated for CRISTINE on CKD, UTI, and now pneumonia. Nephrology is following and performed dialysis yesterday. Patient has continued to decline. Pt currently on BiPAP and this morning became hypotensive. Pulmonology was asked to come and re-evaluate the patient. Patient initially evaluated on 11/17 at time seeemed to be mostly pulmonary edeam 2/2/ d CHF. Prognosis is poor and family seems to understand this. patient minimally responsive on exam today. Past Med Surg Social Fam HX - Past Medical History Medical history: arthritis, cancer, diabetes, GERD, hypertension, kidney stones , renal disease Psychiatric history: schizophrenia - Past Surgical History Surgical History: cholecystectomy, orthopedic, other - Social History Smoking Status: Never smoker Smokeless Tobacco Status: No Alcohol use: none Drug use: none - Family History Brother Living Status: Still Living Hx Family Cancer: Yes (colon) Medications and Allergies Folic Acid 0.4 mg PO DAILY 04/23/17 [History] Lisinopril [Zestril] 40 mg PO DAILY 04/23/17 [History] Lovastatin 10 mg PO DAILY 04/23/17 [History] Metoprolol [Lopressor] 50 mg PO BID 04/23/17 [History] Pioglitazone [Actos] 45 mg PO 0800 04/23/17 [History] Amlodipine Besylate 10 mg PO DAILY 10/13/17 [History] Ascorbate Calcium [Vitamin C] 500 mg PO DAILY 10/13/17 [History] Aspirin [Lo-Dose Aspirin EC] 81 mg PO DAILY 10/13/17 [History] Ca/D3/Mag#11/Zinc/Hansard Reporter/Bill/Bor [Caltrate 600+D Plus Tablet] 1 tab PO DAILY 10/13 [History] Gabapentin [Neurontin] 600 mg PO BID 10/13/17 [History] Insulin Glargine,Hum.rec.anlog [Basaglar Kwikpen U-100] 12 unit SQ DAILY [History] Levothyroxine [Synthroid] 75 mcg PO 0630 10/13/17 [History] Multivitamin [Multivitamins] 1 cap PO DAILY 10/13/17 [History] Omeprazole [PriLOSEC] 40 mg PO DAILY 10/13/17 [History] Oxybutynin [Ditropan] 5 mg PO DAILY 10/13/17 [History] hydrALAZINE [HydrALAZINE] 10 mg PO TID 10/13/17 [History] HYDROcodone/Acet 7.5/325 mg [[place] 7.5-325 mg] 1 tab PO Q8H PRN #21 tablet 10/16 [Rx] Ondansetron [Zofran] 8 mg PO Q8HR 11/04/17 [History] Polyethylene Glycol 3350 [MiraLAX Powder Bulk 17.9 Oz] 1 scoop PO DAILY #510 gm 11/04/17 [Rx] Ranitidine HCl [Zantac] 150 mg PO BID #60 tablet 11/04/17 [Rx] traZODone [TraZODone] 50 mg PO HS 11/15/17 [History] 3 Allergy/AdvReac Type Severity Reaction Status Date / Time No Known Allergies Allergy Verified 11/15/17 08:54 ROS unobtainable: due to mental status All Systems: A 10-system review of systems was performed and is negative for pertinent findings except as documented above in the HPI. Physical Examination Vital Signs: Vital Signs, Last 4 Hours Temp Pulse Resp BP Pulse Ox 11/20/17 10:39 19 80/37 95 11/20/17 10:35 20 80/37 96 11/20/17 09:58 88 19 95 11/20/17 07:55 92 11/20/17 07:46 99.5 F 94 18 80/37 95 11/20/17 07:15 99.5 F 100 16 92/45 100 General appearance: other (minimally responsive) Eyes: nonicteric ENT: oropharynx moist Neck: supple Effort: other (On bipap minimal respirations, poor airmovement, coarse breath sounds, rhonnchi) Auscultation: bilateral: rhonchi Cardiovascular: irregular rhythm, other (regualr rate) Gastrointestinal: hypoactive bowel sounds Integumentary: normal Extremities: no cyanosis unable to assess due to mental status, other (minimally responsive) Results - Laboratory Findings CBC and BMP: 11/20/17 06:57 11/20/17 05:54 ABG ABG pH 7.12 pH Units (7.32-7.45) L* 11/20/17 08:39 ABG pCO2 87 mmHg (35-45) H* 11/20/17 08:39 ABG pO2 156 mmHg (85-104) H 11/20/17 08:39 ABG O2 Saturation 98 % (95-98) 11/20/17 08:39 PT/INR, D-dimer PT 10.3 Seconds (9.4-12.1) 11/19/17 14:21 Abnormal lab findings: Abnormal lab results WBC 28.2 K/mcL (4.3-11.1) H D 11/20/17 06:57 RBC 2.64 M/mcL (3.82-4.97) L 11/20/17 06:57 Hgb 8.6 g/dL (11.5-15.4) L 11/20/17 06:57 Hct 28.8 % (35.3-44.9) L 11/20/17 06:57 MCV 109.1 fL (83.0-100.0) H 11/20/17 06:57 MCHC 29.9 g/dL (31.6-35.5) L 11/20/17 06:57 RDW 20.1 % (11.5-14.5) H 11/20/17 06:57 Neutrophils # 25.4 K/mcL (1.6-8.9) H 11/20/17 06:57 Lymphocytes # 0.3 K/mcL (0.6-4.6) L 11/20/17 06:57 Monocytes # 2.5 K/mcL (0.0-1.3) H 11/20/17 06:57 Nucleated RBCs/100 WBC 0.4 /100 WBC (0) H 11/20/17 06:57 Basophilic Stippling 1+ (Not Present) A 11/20/17 06:57 Anisocytosis 1+ (Not Present) A 11/20/17 06:57 [place] Cells 1+ (Not Present) A 11/20/17 06:57 APTT 24.3 Seconds (26.0-36.0) L 11/19/17 14:21 ABG pH 7.12 pH Units (7.32-7.45) L* 11/20/17 08:39 ABG pCO2 87 mmHg (35-45) H* 11/20/17 08:39 ABG pO2 156 mmHg (85-104) H 11/20/17 08:39 ABG HCO3 28 mEq/L (21-27) H 11/20/17 08:39 ABG Total CO2 31 mEq/L (20-26) H 11/20/17 08:39 ABG Base Excess -4 mEq/L (-2 to 3) L 11/20/17 08:39 BUN 68 mg/dL (8-23) H 11/20/17 05:54 Creatinine 4.49 mg/dL (0.60-1.20) H 11/20/17 05:54 Est GFR ( Amer) 11 (> 60) L 11/20/17 05:54 Est GFR (Non-Af Amer) 9 (> 60) L 11/20/17 05:54 Glucose 221 mg/dL (70-105) H 11/20/17 05:54 POC Glucose 203 (58-89) H 11/20/17 00:30 Calculated Osmolality 313 (280-300) H 11/20/17 05:54 Calcium 7.8 mg/dL (8.6-10.3) L 11/20/17 05:54 Phosphorus 7.4 mg/dL (2.7-4.5) H 11/20/17 05:54 Magnesium 3.2 mg/dL (1.6-2.6) H 11/20/17 05:54 Iron 37 mcg/dL (50-170) L 11/16/17 02:40 Transferrin 142 mg/dL (203-362) L 11/16/17 02:40 Ferritin > 1350 ng/ml (10-120) H 11/16/17 02:40 Serum Total Protein 6.0 g/dL (6.4-8.9) L 11/20/17 05:54 Albumin 2.6 g/dL (3.5-5.7) L 11/20/17 05:54 Albumin/Globulin Ratio 0.8 (1.1-2.2) L 11/20/17 05:54 Urine Clarity Turbid (Clear) A 11/16/17 03:15 Urine Protein 30 mg/dL (Neg-Trace) H 11/16/17 03:15 Urine Ketones Trace mg/dL (Negative) H 11/16/17 03:15 Urine Blood Trace (Negative) H 11/16/17 03:15 Ur Leukocyte Esterase Large (Negative) H 11/16/17 03:15 Urine Microscopic RBC 5-15 per hpf (0-3) H 11/16/17 03:15 Urine Microscopic WBC TNTC per hpf (0-3) H 11/16/17 03:15 Ur Squamous Epith Cells Many per lpf (None-Few) H 11/16/17 03:15 Urine Bacteria Many per hpf (None-Few) H 11/16/17 03:15 Urine Yeast Moderate per hpf (None Seen) H 11/15/17 10:00 - Microbiology Findings Microbiology Findings: Microbiology, Last 48 Hours 11/17/17 11:11 Blood Culture - Preliminary Peripheral Venipuncture No growth. 11/17/17 11:11 Blood Culture - Preliminary Peripheral Venipuncture No growth. - Clinical Findings Intake & Output: Intake & Output 11/19/17 11/20/17 11/20/17 23:59 07:59 15:59 Intake Total 600 / 600 200 / 200 Output Total 2650 / 2650 155 / 155 Balance -2049 / -2049 45 / 45 Consult Discharge Plan - Plan Referrals: Oralia Knowles, [employer] [Primary Care Provider] - <Tony Savage W - Last Filed: 11/20/17 12:31> Date of Encounter: 11/20/17 All Systems: A 10-system review of systems was performed and is negative for pertinent findings except as documented above in the HPI. Physical Examination Vital Signs: Vital Signs, Last 4 Hours Temp Pulse Resp BP Pulse Ox 11/20/17 11:55 99 16 99/46 93 11/20/17 11:15 99.8 F H 96 18 91/46 96 11/20/17 10:39 19 80/37 95 11/20/17 10:35 20 80/37 96 11/20/17 09:58 88 19 95 Results - Laboratory Findings CBC and BMP: 11/20/17 06:57 11/20/17 05:54 ABG ABG pH 7.12 pH Units (7.32-7.45) L* 11/20/17 08:39 ABG pCO2 87 mmHg (35-45) H* 11/20/17 08:39 ABG pO2 156 mmHg (85-104) H 11/20/17 08:39 ABG O2 Saturation 98 % (95-98) 11/20/17 08:39 PT/INR, D-dimer PT 10.3 Seconds (9.4-12.1) 11/19/17 14:21 Abnormal lab findings: Abnormal lab results WBC 28.2 K/mcL (4.3-11.1) H D 11/20/17 06:57 RBC 2.64 M/mcL (3.82-4.97) L 11/20/17 06:57 Hgb 8.6 g/dL (11.5-15.4) L 11/20/17 06:57 Hct 28.8 % (35.3-44.9) L 11/20/17 06:57 MCV 109.1 fL (83.0-100.0) H 11/20/17 06:57 MCHC 29.9 g/dL (31.6-35.5) L 11/20/17 06:57 RDW 20.1 % (11.5-14.5) H 11/20/17 06:57 Neutrophils # 25.4 K/mcL (1.6-8.9) H 11/20/17 06:57 Lymphocytes # 0.3 K/mcL (0.6-4.6) L 11/20/17 06:57 Monocytes # 2.5 K/mcL (0.0-1.3) H 11/20/17 06:57 Nucleated RBCs/100 WBC 0.4 /100 WBC (0) H 11/20/17 06:57 Basophilic Stippling 1+ (Not Present) A 11/20/17 06:57 Anisocytosis 1+ (Not Present) A 11/20/17 06:57 [place] Cells 1+ (Not Present) A 11/20/17 06:57 APTT 24.3 Seconds (26.0-36.0) L 11/19/17 14:21 ABG pH 7.12 pH Units (7.32-7.45) L* 11/20/17 08:39 ABG pCO2 87 mmHg (35-45) H* 11/20/17 08:39 ABG pO2 156 mmHg (85-104) H 11/20/17 08:39 ABG HCO3 28 mEq/L (21-27) H 11/20/17 08:39 ABG Total CO2 31 mEq/L (20-26) H 11/20/17 08:39 ABG Base Excess -4 mEq/L (-2 to 3) L 11/20/17 08:39 BUN 68 mg/dL (8-23) H 11/20/17 05:54 Creatinine 4.49 mg/dL (0.60-1.20) H 11/20/17 05:54 Est GFR ( Amer) 11 (> 60) L 11/20/17 05:54 Est GFR (Non-Af Amer) 9 (> 60) L 11/20/17 05:54 Glucose 221 mg/dL (70-105) H 11/20/17 05:54 POC Glucose 203 (58-89) H 11/20/17 00:30 Calculated Osmolality 313 (280-300) H 11/20/17 05:54 Calcium 7.8 mg/dL (8.6-10.3) L 11/20/17 05:54 Phosphorus 7.4 mg/dL (2.7-4.5) H 11/20/17 05:54 Magnesium 3.2 mg/dL (1.6-2.6) H 11/20/17 05:54 Iron 37 mcg/dL (50-170) L 11/16/17 02:40 Transferrin 142 mg/dL (203-362) L 11/16/17 02:40 Ferritin > 1350 ng/ml (10-120) H 11/16/17 02:40 Serum Total Protein 6.0 g/dL (6.4-8.9) L 11/20/17 05:54 Albumin 2.6 g/dL (3.5-5.7) L 11/20/17 05:54 Albumin/Globulin Ratio 0.8 (1.1-2.2) L 11/20/17 05:54 Urine Clarity Turbid (Clear) A 11/16/17 03:15 Urine Protein 30 mg/dL (Neg-Trace) H 11/16/17 03:15 Urine Ketones Trace mg/dL (Negative) H 11/16/17 03:15 Urine Blood Trace (Negative) H 11/16/17 03:15 Ur Leukocyte Esterase Large (Negative) H 11/16/17 03:15 Urine Microscopic RBC 5-15 per hpf (0-3) H 11/16/17 03:15 Urine Microscopic WBC TNTC per hpf (0-3) H 11/16/17 03:15 Ur Squamous Epith Cells Many per lpf (None-Few) H 11/16/17 03:15 Urine Bacteria Many per hpf (None-Few) H 11/16/17 03:15 Urine Yeast Moderate per hpf (None Seen) H 11/15/17 10:00 - Microbiology Findings Microbiology Findings: Microbiology, Last 48 Hours 11/17/17 11:11 Blood Culture - Preliminary Peripheral Venipuncture No growth. 11/17/17 11:11 Blood Culture - Preliminary Peripheral Venipuncture No growth. - Clinical Findings Intake & Output: Intake & Output 11/19/17 11/20/17 11/20/17 23:59 07:59 15:59 Intake Total 600 / 600 200 / 200 100 / 100 Output Total 2650 / 2650 155 / 155 Balance -2049 / -2049 45 / 45 90 / 90 - Attending Attestation I examined this patient and my medical decision-making was reviewed with the Resident Physician. I agree with the documented findings, disposition and treatment plan as described except to the extent set forth below. We independently had [id number] contact with the patient Patient seen and examined at bedside Labs, radiology, chart personally reviewed. Unfortunate case of any 7-year-old woman with clinical decline status post hip fracture has underlying history of dementia. HFpEF, renal failure multiple myeloma and diabetes. She initially had presented with pneumonia was treated with some improvement in respiratory status but kidney function continued to decline with initiation of her PLUGMAN yesterday and persistent Encephalopathy. Pulmonary was re-consulted for possible transfer to intensive care unit as patient noted to develop worsening respiratory failure and hypotension in the last 12 hours. Vital signs were noted she is hypotensive with systolic blood pressure persistently in the 80s. On exam she is obtunded and barely arousable even to deep sternal rub she does not respond to voice command Labs reviewed she has hypoxic hypercarbic respiratory failure with severe acidemia she is a combination of both respiratory and metabolic derangements Worsening leukocytosis now at 28 Chest x-ray reviewed and is consistent with multifocal bilateral opacities concerning for aspiration pneumonia Impression 1. Acute on Chronic Hypoxic Hypercarbic Resp Failure 2. Severe Sepsis 3. Hypotension 4. Acute on Chronic Kidney Disease requiring PLUGMAN. 5. Goals of Care Discussion. Recs: I had a ochoa discussion with the daughter who is the patient's healthcare proxy and she was very clear that her mother wish to not be intubated or undergo heroic measures such as CPR. I explained to her that I felt that clinically with the severity of her underlying pneumonia obtundation and respiratory failure that she do could not survive with noninvasive ventilation alone and that with her current mental status and degree of respiratory acidemia NIPPV is actually contraindicated. Given limitations set forth by patient and family I recommended transitioning to comfort measures given degree of acidemia on last ABG. The daughter expressed understanding and agreement with plan to transition to comfort measures I discussed the case with the palliative care service the attending social media intern and the attending hospitalist. Please call with any questions.
--- NOTE | 2017-11-20 11:04 | Nephrology Progress Note ---
Date of Encounter: 11/20/17 Time of Encounter: 11:02 - Assessment and Plan (1) Acute kidney injury superimposed on chronic kidney disease Current Visit: Yes Status: Acute CRISTINE on CKD stage IV. Patient underwent one dialysis treatment yesterday. Overall the patient appears to have a decline in her overall status. Discuss further renal replacement therapy options with family and appears that they are pursuing a more comfort-based approach will hold off on renal replacement therapy until goals of care are defined. Given the patient's hypotension CRRT would likely be the needed modality for this patient which would not address her underlying pneumonia and acute on chronic respiratory failure. This was discussed at length with the patient's daughter. If the family wishes to request aggressive measures will consider Concepcion. (2) Anemia Current Visit: Yes Status: Acute Hemoglobin improved today. Further management per primary team. Qualifiers: Anemia type: iron deficiency Iron deficiency anemia type: unspecified iron deficiency Qualified Code(s): D50.9 - Iron deficiency anemia, unspecified (3) Acute and chronic respiratory failure with hypoxia Current Visit: Yes Status: Acute Further management per primary team and pulmonology. Daughter reaffirms DNR CCA /DNI status. Poor prognosis. Subjective Principal diagnosis: CRISTINE/CKD Interval history: Patient seen and examined at bedside. Patient is minimally responsive at this time. She does open her eyes to verbal and painful stimuli but is otherwise unresponsive. She appears to be in mild respiratory distress. Objective - Vital Signs Vital signs: Vital Signs Temp Pulse Resp BP Pulse Ox 11/20/17 10:39 19 80/37 95 11/20/17 10:35 20 80/37 96 11/20/17 09:58 88 19 95 11/20/17 07:55 92 11/20/17 07:46 99.5 F 94 18 80/37 95 11/20/17 07:15 99.5 F 100 16 92/45 100 11/20/17 04:15 99.0 F 99 18 92/49 88 11/20/17 04:00 14 96 11/19/17 23:00 96.8 F L 103 17 114/84 91 11/19/17 22:12 101 11/19/17 21:38 96.9 F L 99 17 115/58 96 11/19/17 21:29 17 98 11/19/17 20:55 97.8 F 17 146/75 11/19/17 20:45 127/62 11/19/17 20:30 132/60 11/19/17 20:15 127/65 11/19/17 20:00 128/59 11/19/17 19:45 126/61 11/19/17 19:30 128/57 11/19/17 19:15 131/59 11/19/17 19:00 138/57 11/19/17 18:45 99.1 F 18 128/57 11/19/17 16:18 20 92 11/19/17 16:15 99.5 F 94 16 111/49 92 11/19/17 11:03 99.3 F 102 20 119/61 93 Intake and Output 11/19/17 11/20/17 11/20/17 23:59 07:59 15:59 Intake Total 600 / 600 200 / 200 Output Total 2650 / 2650 155 / 155 Balance -2049 / -2049 45 / 45 Intake: IV Fluids 200 / 200 Zosyn Premix 3.375 GM/200 ML 3. 200 / 200 375 gm In 200 ml @ 50 mls/hr IVPB Q12H [facility] Rx#:[id number] Oral 0 / 0 Intake, Rinseback and Flushes 600 / 600 Output: Urine 0 / 0 Total Dialysis (HD) Output 2600 / 2600 Catheter 50 / 50 155 / 155 Other: Blood Glucose* 203 204 Hemodialysis Net Fluid Removed 2000 (mL) - General Appearance General appearance: Present: chronically ill Exam: Mild distress EENT: Present: mucous membranes dry Neck: Present: supple Respiratory: Present: course breath sounds, rhonchi Cardiology: Present: no edema (Trace lower extremity bilaterally), regular rate , irregular rhythm Dialysis Vascular Access: Venous Catheter (Temporary, right IJ) Gastrointestinal: Present: hypoactive bowel sounds, no tenderness Integumentary: Present: no rash, warm and dry Neurologic: Present: confused Musculoskeletal: Present: no erythema, no cyanosis - Lab 11/20/17 06:57 11/20/17 05:54 Most recent lab results ABG pH 7.12 pH Units (7.32-7.45) L* 11/20/17 08:39 ABG pCO2 87 mmHg (35-45) H* 11/20/17 08:39 ABG pO2 156 mmHg (85-104) H 11/20/17 08:39 ABG HCO3 28 mEq/L (21-27) H 11/20/17 08:39 ABG O2 Saturation 98 % (95-98) 11/20/17 08:39 Calcium 7.8 mg/dL (8.6-10.3) L 11/20/17 05:54 Phosphorus 7.4 mg/dL (2.7-4.5) H 11/20/17 05:54 Magnesium 3.2 mg/dL (1.6-2.6) H 11/20/17 05:54 Urine Creatinine 100 mg/dL 11/16/17 10:50 Urine Sodium 35.2 mEq/L 11/16/17 10:50 - VTE Documentation of Mechanical Device: Intermittent pneumatic compression device Consult Discharge Plan - Plan Referrals: Oralia Knowles, [employer] [Primary Care Provider] -
[2017-11-20 11:58] VITALS: BP 99/46
[2017-11-20] MEDS ORDERED: *HR* HYDROmorphone 2 MG/ML SYRINGE IVP PRN (13:16)
[2017-11-20] MEDS ORDERED: *HR* LORazepam 2 MG/ML VIAL IVP PRN (13:17)
[2017-11-20] MEDS ORDERED: Atropine Sulfate 1% 40 DROP/2 ML BOTTLE SL PRN (13:17)
--- NOTE | 2017-11-20 13:24 | Event Note ---
Date of Encounter: 11/20/17 Time of Encounter: 13:20 Met with daughter again re: goals of care after physicians have discussed today. She has decided to transition to comfort care, and stop all aggressive measures. Calling family in and when they arrive - will desire to have bipap removed. She is aware that she may not survive long. D/W Dr. Roman and daughter. Daughter desires to transfer to palliative unit and have mask removed after that time when family here. Will d/c meds and antibiotics and order comfort medications only. This also was discussed with daughter. Will continue to follow closely.
[2017-11-20] MEDS ORDERED: *HR* Morphine 2 MG/ML SYRINGE IVP PRN (13:25)
--- NOTE | 2017-11-20 16:01 | Internal Med Progress Note ---
Date of Encounter: 11/20/17 Time of Encounter: 08:30 - Assessment and plan (1) Acute respiratory failure with hypoxia Current Visit: Yes Status: Acute Assessment and plan: Patient is in a critical condition. Poor prognosis. Discussed with pulmonology. Patient's x-ray yesterday evening showed presence of right-sided pulmonary edema with left-sided whiteout concerning for mucous plugs. She underwent hemodialysis and chest percussion therapy and chest x-ray this morning shows some clearing but there are bilateral multifocal infiltrates and basal pleural effusion. ABG continues to show hypercapnia and acidosis is worsening. This will contribute to central respiratory depression and will decrease the patient's ability to respond to hypercapnia. Patient remains DNR/ DNI. Palliative care following. Family at bedside and understands current situation. Considering transitioning patient to comfort care only. (2) Acute respiratory failure with hypercapnia Current Visit: Yes Status: Acute Assessment and plan: Poorly compensated. With respiratory acidosis. Poor prognosis. Family understands this. Plan on transitioning to comfort care only. For now continue BiPAP. (3) Acute kidney injury superimposed on chronic kidney disease Current Visit: Yes Status: Acute Assessment and plan: Patient started on hemodialysis yesterday but today blood pressure is low to perform hemodialysis. CVVH would be an option but given that it would not cure the patient's lung condition and respiratory acidosis, it would not be beneficial to the patient in terms of her overall prognosis. Patient's family understands this. We will hold off on further renal replacement therapy at this time. Nephrology agrees with this plan. (4) Pneumonia Current Visit: Yes Status: Acute Assessment and plan: Leukocytosis worse today. Patient does have multifocal infiltrates. May have aspirated again yesterday. Continue current antibiotics for now till patient has been transitioned to comfort care Qualifiers: Pneumonia type: due to unspecified organism Laterality: bilateral Lung location: unspecified part of lung Qualified Code(s): J18.9 - Pneumonia, unspecified organism (5) CKD (chronic kidney disease), stage III Current Visit: No Status: Chronic Assessment and plan: Remains oliguric (6) Diastolic congestive heart failure Current Visit: Yes Status: Acute Assessment and plan: Not responding to Lasix. Unable to dialyze patient. Poor prognosis. Qualifiers: Congestive heart failure chronicity: acute on chronic Qualified Code(s): I50.33 - Acute on chronic diastolic (congestive) heart failure (7) Hypothyroidism Current Visit: Yes Status: Chronic Qualifiers: Hypothyroidism type: unspecified Qualified Code(s): E03.9 - Hypothyroidism , unspecified (8) Multiple myeloma Current Visit: Yes Status: Chronic Assessment and plan: Receiving intravenous steroids. Will continue for now until patient is transitioned to comfort care only Qualifiers: Multiple myeloma remission status: unspecified Qualified Code(s): C90.00 - Multiple myeloma not having achieved remission (9) Type 2 diabetes mellitus Current Visit: Yes Status: Chronic Assessment and plan: Continue to monitor blood sugars. Continue current insulin regimen. Patient is still not eating anything and remained somnolent. 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 Continue current antibiotics. Qualifiers: Urinary tract infection type: site unspecified Hematuria presence: without hematuria Qualified Code(s): N39.0 - Urinary tract infection, site not specified (11) Respiratory acidosis Current Visit: Yes Status: Acute Assessment and plan: With BODY TEAM MEMBER depression. - Subjective Interval history: Patient's condition has deteriorated since yesterday. She did undergo hemodialysis yesterday but remained hypoxic and her blood pressures started to decline. She continued to saturate well but her pH has continued to decline and PCO2 has continued to rise. Explained the situation to patient's daughter was present at bedside. Patient continues to be very somnolent and not responsive to commands or questions. Remains on BiPAP. Has generalized anasarca. - Constitutional Vitals: Temp Pulse Resp BP Pulse Ox 99.8 F H 99 16 99/46 93 11/20/17 11:15 11/20/17 11:55 11/20/17 11:55 11/20/17 11:55 11/20/17 11:55 General appearance: Present: A&O X 0 Exam: Severe distress - Respiratory Respiratory exam: Present: accessory muscle use, prolonged expiratory phase, rales, respiratory distress. Absent: rhonchi, wheezes Additional comments: Coarse breath sounds bilaterally - Cardiovascular Cardiovascular exam: Present: RRR, +S1, +S2. Absent: diastolic murmur, gallop, rubs, systolic murmur - GI/Abdominal GI/Abdominal exam: Present: normal bowel sounds, soft, no peritoneal signs. Absent: distended, tenderness - Extremities Exam Extremities exam: Present: pedal edema (Bilateral pedal edema extending up to the knees), warm, radial pulses palpable and symmetrical. Absent: calf tenderness, cyanotic - Neurological Exam Neurological exam: Present: altered. Absent: facial droop Internal Medicine: Result - Labs CBC & Chem 7: 11/20/17 06:57 11/20/17 05:54 Labs: Short CBC 11/20/17 Range/Units 06:57 WBC 28.2 H D (4.3-11.1) K/mcL Hgb 8.6 L (11.5-15.4) g/dL Hct 28.8 L (35.3-44.9) % Plt Count 222 (140-400) K/mcL Neutrophils # 25.4 H (1.6-8.9) K/mcL BMP 11/20/17 05:54 Sodium 138 Potassium 5.0 Chloride 105 Carbon Dioxide 26 BUN 68 H Creatinine 4.49 H Glucose 221 H Calcium 7.8 L Liver Function 11/20/17 Range/Units 05:54 Total Bilirubin 0.4 (0.3-1.0) mg/dL AST 36 (13-39) Units/L ALT 12 (7-52) Units/L Alkaline Phosphatase 86 (34-104) Units/L Albumin 2.6 L (3.5-5.7) g/dL - ABG Interpretation ABG results: ABG ABG pH 7.12 pH Units (7.32-7.45) L* 11/20/17 08:39 ABG pCO2 87 mmHg (35-45) H* 11/20/17 08:39 ABG pO2 156 mmHg (85-104) H 11/20/17 08:39 ABG O2 Saturation 98 % (95-98) 11/20/17 08:39 PT/INR, D-dimer PT 10.3 Seconds (9.4-12.1) 11/19/17 14:21 - Impressions Impressions Guidance Needle Placement Ultrasound 11/19/17 00:00 IMPRESSION: Successful ultrasound and fluoroscopy guided non-tunneled temporary hemodialysis catheter placement. D/ / Felipe Smith MD / Felipe Smith MD Interpreting Provider: Felipe Smith MD Insertion Non-Tunneled Catheter 11/19/17 00:00 IMPRESSION: Successful ultrasound and fluoroscopy guided non-tunneled temporary hemodialysis catheter placement. D/ / Felipe Smith MD / Felipe Smith MD Interpreting Provider: Felipe Smith MD Chest X-Ray 11/19/17 15:00 IMPRESSION: 1. Central venous catheter tip overlies the atrial caval junction. No pneumothorax. 2. New complete opacification of the left hemithorax. The differential includes mucous plugging given its rapid development from the prior exam. Airspace consolidation is also present. 3. Extensive diffuse airspace opacities in the right lung with a small right pleural effusion, which could represent pulmonary edema or multifocal infection. D/ / Estiven Moreno MD / Estiven Moreno MD Interpreting Provider: Estiven Moreno MD Chest X-Ray 11/20/17 07:29 IMPRESSION: Extensive partially consolidating airspace disease right upper lobe and both lower lobes. This could represent aspiration or pneumonia. Improved aeration throughout the left upper lung possibly from clearing of mucous plugging. D/ / Shane Winters MD / Shane Winters MD Interpreting Provider: Shane Winters MD - VTE Documentation of Mechanical Device: Intermittent pneumatic compression device Consult Discharge Plan - Plan Referrals: Oralia Knowles, SHRAVAN [Primary Care Provider] -
--- NOTE | 2017-11-20 18:01 | Death Note ---
Discharge Sum: Summary - Date and Time Date of admission: 11/15/17 10:47 Date of : 11/20/17 Time of : 15:27 - Summary Details: Ms. Beaulieu is a 87 year old female patient with history of diabetes mellitus type 2, hypertension, chronic kidney disease stage IV, multiple myeloma/MGUS who was initially admitted here with abnormal labs as she was found to have worsening BUN and creatinine much above her baseline. Patient had recently been treated for recurrent urinary tract infection with nitrofurantoin and had also been having declining appetite at home with symptoms of dehydration. She was also on lisinopril. With multiple factors causing her acute kidney injury, she was hospitalized. She did exhibit signs of urinary tract infection again and was started on IV ceftriaxone. Oncology was also consulted to help manage patient's care as she has a history of multiple myeloma. Per nephrology recommendations, patient was started on gentle hydration to see if she would respond to this. She was also placed on intravenous steroids per oncology recommendations. Patient's condition however did not improve and she continued to have worsening respiratory distress and respiratory failure and also developed diastolic heart failure. She was started back on diuretics due to worsening respiratory distress and heart failure. Her kidney function did not show much improvement and patient remained oliguric. Pulmonary medicine/ Intensive care was consulted to help manage patient's respiratory failure. In keeping with patient's wishes, she was made DNR/DNI as she did not want to be intubated. She was managed with noninvasive positive pressure ventilation. She was also diagnosed and treated for pneumonia. Despite all these measures, patient's condition continued to worsen and so she was recommended hemodialysis. She also developed pulmonary edema and there was white out of the left lung likely from mucous plug for which she received chest percussion therapy. While her chest x-ray today shows some improvement, she does have multifocal lesions concerning for multifocal pneumonia probably related to aspiration. A dialysis catheter was placed yesterday and patient dialyzed and about 2 L of fluid was removed. Despite this, patient's condition continued to decline and overnight her blood pressure began to go down. Patient became more and more acidotic with hypercapnic respiratory acidosis. Palliative care was also involved in patient's care to help guide the patient's family in making decisions in keeping with the patient's wishes. Given the patient's quick deterioration with no significant signs of improvement, she was transitioned to comfort care today. Patient passed on peacefully with family at bedside and was pronounced and at 1527 by nursing staff. I was notified later. 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 (3) Acute kidney injury superimposed on chronic kidney disease Multiple myeloma and MGUS Discharge Sum: Prov - Provider Primary care physician: Oralia Knowles CNP Admitting clinician: Jovan Santana Attending physician on admission: Jovan Santana Consults: 11/15/17 11:01 Consult to Occupational Therapy [CONS] Routine Comment: Evaluate, develop and implement POC Reason for Consult: weakness Consult to Physical Therapy [CONS] Routine Comment: Evaluate, develop and implement POC Reason for Consult: weakness 11/15/17 12:27 Consult to Oncology Hematology [CONS] Routine Consulting Provider: Jacquelin Ford Reason for Consult: multiple myeloma, CRISTINE on CKD Call Completed: No 11/15/17 12:40 Consult to Dry Goods Inspector [CONS] Routine Reason for SW Consult: home health changes 11/17/17 10:30 Consult to Speech Therapy [CONS] Routine Comment: Evaluate, develop and implement POC Reason for Consult: CONCERN FOR ASPIRATION Call Completed: No 11/17/17 10:41 Consult to Pulmonology [CONS] Routine Consulting Provider: [facility] [place] Reason for Consult: MULTIFOCAL PNEUMONIA. HYPOXIC Call Completed: Yes 11/19/17 10:33 Consult to Palliative Care [CONS] Routine Comment: Consulting Provider: [facility] [place] Reason for Consult: Goals of care- Re: Dialysis/ Feeding tube etc if doesn't get better Time Notified: 10:33 Call Completed: Yes 11/19/17 13:58 Consult to Interventional Radiology [CONS] Stat Consulting Provider: Radiology Interventional [place] Reason for Consult: Need temp cath for urgent dialysis today; Dr Whitney to call with verbal request also Call Completed: Yes 11/19/17 17:15 Consult to Dialysis [CONS] ONCE 11/20/17 07:45 Consult to Dialysis [CONS] ONCE Pronouncing clinician: Abby Roman
[2018-01-07 12:55] LABS: Ferritin 405 ng/ml (10-120)
== END 2017-11-20 17:00 | disposition expired | DRG 177 ==
LOC: EMEROO 08:53 → 2ANU 10:47 → SUATTDRO 10:47 → 2ANU 11:53 → 2NNU 11-17 12:14
PROVIDERS: ADMIT Hospitalist; ATTEND Internal Medicine